=== PATIENT | female | born 1940 | race Caucasian/White ===

== ENCOUNTER 2018-08-03 20:25 | Observation (INO) | payer BC, OTHER ==
[2018-08-03 21:05] LABS: Absolute Lymphocytes (CBC) 1.6 K/uL (0.7-4.9); Absolute Monocytes 0.8 K/uL (0.1-1.3); Absolute Neutrophil 3.3 K/uL (1.8-8.0); Basophils % 0.8 % (0-1.3); Eosinophils % 3.5 % (0-4.4); Hematocrit 45.6 % (36.0-45.0); Lymphocytes % 26.6 % (15.3-44.8); MPV 9.8 fL (7.6-11.3); Monocytes % 13.7 % (3.3-12.3); RBC Red Blood Cell Count 4.51 M/uL (3.86-4.86)
--- NOTE | 2018-08-03 21:15 | RAD REPORT ---
EXAM DESCRIPTION: CT - Ct Stroke Brain Wo Cont - 08/03/2018 9:05 pm CLINICAL HISTORY: Aphasia COMPARISON: None. TECHNIQUE: Computed axial tomography of the head was obtained. IV contrast was not requested. All CT scans are performed using dose optimization technique as appropriate and may include automated exposure control or mA/KV adjustment according to patient size. FINDINGS: An intracranial bleed is not seen . The ventricles are normal in caliber. No extra-axial fluid collection is noted. 7 millimeter structure abuts the anterior right falx which is equivocal for a meningioma. There is no surrounding edema Fluid within the sinuses/ mastoids is not seen. IMPRESSION: No acute intracranial abnormality is seen. If patient's symptoms persist MRI of the bra in would be recommended. Alisia from the emergency room notified 9:05 p.m. August 03, 2018
[2018-08-03 21:16] LABS: Protime INR 1.02
[2018-08-03 21:30] LABS: BUN Blood Urea Nitrogen 12 mg/dL (7-18); Bicarbonate 28 mmol/L (21-32); Glucose Level 113 mg/dL (74-106); Potassium 3.6 mmol/L (3.5-5.1); Sodium Level 137 mmol/L (136-145); Troponin (Emerg Dept Use Only) < 0.02 ng/mL (0.0-0.045)
[2018-08-03 21:33] LABS: Magnesium 1.2 mg/dL (1.8-2.4)
[2018-08-03] MEDS ORDERED: MAGNESIUM SULFATE 1 gm IVPB 1 GM/100 ML BAG IV ONE (21:50)
--- NOTE | 2018-08-03 22:38 | EDPHYS ---
Physician Documentation [facility] Name: Johana Riley Age: 78 yrs Sex: Female : 1940 Arrival Date: 08/03/2018 Time: 20:29 Bed 24 Private MD: ED Physician Chadwick Lutz HPI: 08/03 21:41 This 78 yrs old Female presents to ER via Ambulatory with complaints of S/S rn of Possible Stroke. 21:41 The patient's problem is reported as dysphasia. Onset: The symptoms/episode rn began/occurred this morning. Duration: The episode is continuous. The symptoms are alleviated by nothing. The symptoms are aggravated by nothing. Severity of symptoms: At their worst the symptoms were mild in the emergency department the symptoms are unchanged. The patient has not experienced similar symptoms in the past. Patient reports last known normal last night at midnight, woke up with trouble speaking, constant throughout the day, no other focal neurological complaint, no head trauma. No chest pain/sob. states still sounds different. . Historical: - Allergies: 20:48 No Known Allergies; la1 - Home Meds: 20:48 Lisinopril Oral [Active]; Atenolol Oral [Active]; la1 - PMHx: 20:48 Hypertension; GERD; la1 - Immunization history:: Adult Immunizations up to date. - Social history:: Smoking status: Patient/guardian denies using tobacco. - Ebola Screening: : No symptoms or risks identified at this time. - Family history:: not pertinent. - Hospitalizations: : No recent hospitalization is reported. ROS: 21:41 Constitutional: Negative for fever, chills, and weight loss, Eyes: Negative for injury, rn pain, redness, and discharge, Neck: Negative for injury, pain, and swelling, Cardiovascular: Negative for chest pain, palpitations, and edema, Respiratory: Negative for shortness of breath, cough, wheezing, and pleuritic chest pain, Abdomen/GI: Negative for abdominal pain, nausea, vomiting, diarrhea, and constipation, MS/Extremity: Negative for injury and deformity, Skin: Negative for injury, rash, and discoloration, Neuro: Negative for headache, weakness, numbness, tingling, and seizure. Exam: 21:41 Radiologist reports: no acute findings rn 21:41 Constitutional: This is a well developed, well nourished patient who is awake, alert, and in no acute distress. Head/Face: Normocephalic, atraumatic. Eyes: Pupils equal round and reactive to light, extra-ocular motions intact. Lids and lashes normal. Conjunctiva and sclera are non-icteric and not injected. Cornea within normal limits. Periorbital areas with no swelling, redness, or edema. ENT: Nares patent. No nasal discharge, no septal abnormalities noted. Oropharynx with no redness, swelling, or masses, exudates, or evidence of obstruction, uvula midline. Mucous membranes moist. Cardiovascular: Regular rate and rhythm. No pulse deficits. Respiratory: Lungs have equal breath sounds bilaterally, clear to auscultation and percussion. No increased work of breathing, no retractions or nasal flaring. Abdomen/GI: Soft, non-tender MS/ Extremity: Pulses equal, no cyanosis. Neurovascular intact. Full, normal range of motion. Equal circumference. Neuro: Awake and alert, GCS 15, oriented to person, place, time, and situation. Cranial nerves II-XII grossly intact. Motor strength 5/5 in all extremities. Sensory grossly intact. Cerebellar exam normal. Normal gait. Vital Signs: 20:47 BP 182 / 84; Pulse 76; Resp 16; Temp 98.2; Pulse Ox 98% on R/A; Weight 62.6 kg; Height la1 5 ft. 3 in. (160.02 cm); 21:37 BP 155 / 66; Pulse 70; Resp 18; Pulse Ox 98% on R/A; la1 08/04 00:05 BP 148 / 73; Pulse 71; Resp 18; Pulse Ox 98% on R/A; la1 08/03 20:47 Body Mass Index 24.45 (62.60 kg, 160.02 cm) la1 NIH Stroke Scale Scores: 08/03 20:55 NIHSS Score: 1 la1 MDM: 20:30 Patient medically screened. rn 20:41 ED course: Last known normal midnight last night, noticed symptoms upon waking up today rn at 0700, persistent symptoms. NIH 1. No TPA indicated as outside of window.. 22:34 Differential diagnosis: CVA, metabolic disorder. Data reviewed: vital signs, nurses rn notes, lab test result(s), EKG, radiologic studies, CT scan, and as a result, I will admit patient. Counseling: I had a detailed discussion with the patient and/or guardian regarding: the historical points, exam findings, and any diagnostic results supporting the discharge/admit diagnosis, lab results, radiology results, the need for further work-up and treatment in the hospital. Admission orders: after a detailed discussion of the patient's condition and case, the admit orders are written by me. ED course: Admitted to Dr. Bar for stroke w/u, neg CT head, magnesium replaced.. 08/03 20:41 Order name: Magnesium rn 08/03 20:41 Order name: Troponin (emerg Dept Use Only); Complete Time: 22: 08/03 20:41 Order name: Basic Metabolic Panel; Complete Time: : 08/03 20:41 Order name: CBC with Diff; Complete Time: : 08/03 20:41 Order name: Protime (+inr); Complete Time: 22: 08/03 20:41 Order name: Ptt, Activated; Complete Time: : 08/03 20:41 Order name: CT Stroke Brain w/o Contrast; Complete Time: 22: 08/03 20:41 Order name: Stroke CXR 1 View 08/03 20:41 Order name: EKG; Complete Time: 20:42 08/03 20:42 Order name: Magnesium; Complete Time: 22: [facility] 08/03 20:50 Order name: Glucose, Ancillary Testing; Complete Time: 22: [facility] 08/03 20:41 Order name: Accucheck; Complete Time: 20:08/03 20:41 Order name: Cardiac monitoring; Complete Time: 20:08/03 20:41 Order name: EKG - Nurse/Tech; Complete Time: 20:08/03 20:41 Order name: IV Saline Lock; Complete Time: 20:08/03 20:41 Order name: Labs collected and sent; Complete Time: 20:08/03 20:41 Order name: NPO; Complete Time: :08/03 20:41 Order name: O2 Per Protocol; Complete Time: 20:08/03 20:41 Order name: O2 Sat Monitoring; Complete Time: :08/03 20:41 Order name: Stroke Swallow Screen; Complete Time: 20:56 rn Administered Medications: 21:41 Drug: Magnesium Sulfate 1 grams Route: IVPB; Infused Over: 1 hrs; Site: right la1 antecubital; 22:50 Follow up: IV Status: Completed infusion la1 23:15 Drug: Aspirin Chewable Tablet 324 mg Route: PO; la1 08/04 00:06 Follow up: Response: No adverse reaction la1 08/03 23:15 Drug: PlaVIX 75 mg Route: PO; la1 08/04 00:06 Follow up: Response: No adverse reaction la1 Point of Care Testing: Blood Glucose: 08/03 20:47 Blood Glucose: 108 mg/dL; la1 Ranges: Critical Glucose Levels:Adult <50 mg/dl or >400 mg/dl <40 mg/dl or >180 mg/dl Disposition: 08/03/18 22:37 Hospitalization ordered by Shanon Smith for Inpatient Admission. Preliminary diagnosis is Dysphasia. - Bed requested for Telemetry/MedSurg (Inpatient). - Status is Inpatient Admission. la1 - Condition is Stable. - Problem is new. - Symptoms are unchanged. UTI on Admission? No NIH Stroke Scale - NIH Stroke Score Date: 08/03/2018 Time: 20:55 Total Score = 1 1a. Level of Consciousness (LOC) - 0(Alert) 1b. Level of Consciousness (LOC) (Year \T\ Age) - 0(Both) 1c. LOC Commands (Open \T\ Closes Eyes/Partner) - 0(Both) 2. Best Gaze (Lateral Gaze Paresis) - 0(Normal) 3. Visual Field Loss - 0(No visual loss) 4. Facial Palsy - 0(Normal) 5a. Left Arm: Motor (10-second hold) - 0(No drift) 5b. Right Arm: Motor (10-second hold) - 0(No drift) 6a. Left Leg: Motor (5-second hold - always test supine) - 0(No drift) 6b. Right Leg: Motor (5-second hold - always test supine) - 0(No drift) 7. Limb Ataxia (finger/nose \T\ heel/capps - test with eyes open) - 0(Absent) 8. Sensory Loss (pinprick arms/legs/face) - 0(Normal) 9. Best Language: Aphasia (description/naming/reading) - 1(Mild to moderate aphasia) 10. Dysarthria (speech clarity - read or repeat words) - 0(Normal) 11. Extinction and Inattention (visual/tactile/auditory/spatial/personal) - 0(No abnormality) Initials: laSyd Signatures: Dispatcher [employer] Stephanie Maza, Naren Andres RN, PA PA jmm Nieto, Roman, MD MD rn Attema, Lee, RN RN la1 Corrections: (The following items were deleted from the chart) 08/04 00:07 08/03 22:37 Hospitalization Ordered by Shanon Smith MD for Inpatient kl Admission. Preliminary diagnosis is Dysphasia. Bed requested for Telemetry/MedSurg (Inpatient). Status is Inpatient Admission. Condition is Stable. Problem is new. Symptoms are unchanged. UTI on Admission? No. rn 08/04 00:30 00:07 08/03/2018 22:37 Hospitalization Ordered by Shanon Smith MD for la1 Inpatient Admission. Preliminary diagnosis is Dysphasia. Bed requested for Telemetry/MedSurg (Inpatient). Status is Inpatient Admission. Condition is Stable. Problem is new. Symptoms are unchanged. UTI on Admission? No. kl
--- NOTE | 2018-08-03 22:38 | ER ---
Nurse's Notes [facility] Name: Johana Riley Age: 78 yrs Sex: Female : 1940 Arrival Date: 08/03/2018 Time: 20:29 Bed 24 Private MD: Diagnosis: Dysphasia Presentation: 08/03 20:34 Presenting complaint: Patient states: I went to sleep last night around midnight and la1 woke up at 0700 and realized I was having trouble with my speech, states that she was having trouble thinking of words and slow to respond to questions. Transition of care: patient was not received from another setting of care. No acute neurological deficit is noted. Pre-hospital glucose is not applicable to this patient. Onset of symptoms was August 03, 2018 at 00:00. Risk Assessment: Do you want to hurt yourself or someone else? Patient reports no desire to harm self or others. Initial Sepsis Screen: Does the patient meet any 2 criteria? No. Patient's initial sepsis screen is negative. Does the patient have a suspected source of infection? No. Patient's initial sepsis screen is negative. Care prior to arrival: None. 20:34 Method Of Arrival: Ambulatory la1 20:34 Acuity: CHAITANYA 2 la1 Triage Assessment: 20:56 The onset of the patients symptoms was August 03, 2018 at 00:00. la1 Stroke Activation: Symptom onset > 6 hours Physician: Stroke Attending; Name: ; Notified At: ; Arrived At: Physician: Chief Stroke Resident; Name: ; Notified At: ; Arrived At: Physician: Stroke Resident; Name: ; Notified At: ; Arrived At: Physician: ED Attending; Name: ; Notified At: ; Arrived At: Physician: ED Resident; Name: ; Notified At: ; Arrived At: Historical: - Allergies: 20:48 No Known Allergies; la1 - Home Meds: 20:48 Lisinopril Oral [Active]; Atenolol Oral [Active]; la1 - PMHx: 20:48 Hypertension; GERD; la1 - Immunization history:: Adult Immunizations up to date. - Social history:: Smoking status: Patient/guardian denies using tobacco. - Ebola Screening: : No symptoms or risks identified at this time. - Family history:: not pertinent. - Hospitalizations: : No recent hospitalization is reported. Screenin:48 Abuse screen: Denies threats or abuse. Nutritional screening: No deficits noted. la1 Tuberculosis screening: No symptoms or risk factors identified. The patient has not been NPO before screening. The patient is alert, able to follow commands. The patient does not exhibit slurred or garbled speech The patient is not exhibiting difficulty speaking. The patient is exhibiting difficulty understanding words. The patient is able to swallow own secretions with no drooling or need for suction. Patient tolerated one teaspoon of water. No drooling, immediate coughing, gurgling, or clearing of the throat was noted. The patient tolerated 90mL of water. No drooling, immediate coughing, gurgling, or clearing of the throat was noted. The patient passed the bedside swallow screening. Oral medications may be given as ordered. Contact Physician for further diet orders. Provider notified of bedside swallow screening results: Chadwick Lutz MD. Fall Risk No fall in past 12 months (0 pts). No secondary diagnosis (0 pts). IV access (20 points). Ambulatory Aid- None/Bed Rest/Nurse Assist (0 pts). Gait- Weak (10 pts.). Mental Status- Oriented to own ability (0 pts). Total Marcus Fall Scale indicates Low Risk Score (25-44 pts). Family Present and informed to notify staff if they need to leave bedside. Assessment: 20:49 The patient has not been NPO before screening. The patient is alert, and able to follow la1 commands. The patient does not exhibit slurred or garbled speech. The patient is not exhibiting difficulty speaking. The patient is exhibiting difficulty understanding words. The patient is able to swallow own secretions with no drooling or need for suction. Patient tolerated one teaspoon of water. No drooling, immediate coughing, gurgling, or clearing of the throat was noted. The patient tolerated 90mL of water. No drooling, immediate coughing, gurgling, or clearing of the throat was noted. The patient passed the bedside swallow screening. Oral medications may be given as ordered. Contact Physician for further diet orders. Provider notified of bedside swallow screening results: Chadwick Lutz MD. T-PA (Activase) Screening: Contraindications: Patient reports onset of signs and symptoms of stroke greater than 6 hours ago: Yes. General: Appears in no apparent distress. Behavior is calm, cooperative. Pain: Denies pain. Neuro: Level of Consciousness is awake, alert, obeys commands, Oriented to person, place, time, situation, Pharmacy Graduate Intern are equal bilaterally Moves all extremities. Full function Gait is steady, Speech reports pt has had difficulty thinking of appropriate responses, pt able to answer questions appropriately in triage. Facial symmetry appears normal, Pupils are PERRLA, Intact. Cardiovascular: Capillary refill < 3 seconds Patient's skin is warm and dry. Respiratory: Airway is patent Respiratory effort is even, unlabored, Respiratory pattern is regular, symmetrical. GI: No signs and/or symptoms were reported involving the gastrointestinal system. : No signs and/or symptoms were reported regarding the genitourinary system. 21:37 Reassessment: Patient appears in no apparent distress at this time. No changes from la1 previously documented assessment. Patient and/or family updated on plan of care and expected duration. Pain level reassessed. Patient is alert, oriented x 3, equal unlabored respirations, skin warm/dry/pink. 22:16 Reassessment: Patient appears in no apparent distress at this time. No changes from la1 previously documented assessment. Patient and/or family updated on plan of care and expected duration. Pain level reassessed. Patient is alert, oriented x 3, equal unlabored respirations, skin warm/dry/pink. 08/04 00:05 Reassessment: Patient appears in no apparent distress at this time. No changes from la1 previously documented assessment. Patient and/or family updated on plan of care and expected duration. Pain level reassessed. Patient is alert, oriented x 3, equal unlabored respirations, skin warm/dry/pink. Vital Signs: 08/03 20:47 BP 182 / 84; Pulse 76; Resp 16; Temp 98.2; Pulse Ox 98% on R/A; Weight 62.6 kg; Height la1 5 ft. 3 in. (160.02 cm); 21:37 BP 155 / 66; Pulse 70; Resp 18; Pulse Ox 98% on R/A; la1 08/04 00:05 BP 148 / 73; Pulse 71; Resp 18; Pulse Ox 98% on R/A; la1 08/03 20:47 Body Mass Index 24.45 (62.60 kg, 160.02 cm) ak1 NIH Stroke Scale Scores: 08/03 20:55 NIHSS Score: 1 la1 ED Course: 20:29 Patient arrived in ED. ds1 20:30 Chadwick Lutz MD is Attending Physician. rn 20:34 Candelario Hester RN is Primary Nurse. la1 20:36 Triage completed. la1 20:36 Arm band placed on left wrist. la1 20:49 Bed in low position. Call light in reach. Side rails up X 1. thermal cutting machine operator on. Pulse la1 ox on. NIBP on. 20:49 Inserted saline lock: 20 gauge in right antecubital area, using aseptic technique. la1 ,using aseptic technique. by Jeremy IBARRA. 21:05 Stroke CXR 1 View In Process Unspecified. EDMS 21:05 CT Stroke Brain w/o Contrast In Process Unspecified. EDMS 22:37 Shanon Smith MD is Hospitalizing Provider. rn 08/04 00:29 No provider procedures requiring assistance completed. Patient admitted, IV remains in la1 place. Administered Medications: 08/03 21:41 Drug: Magnesium Sulfate 1 grams Route: IVPB; Infused Over: 1 hrs; Site: right la1 antecubital; 22:50 Follow up: IV Status: Completed infusion la1 23:15 Drug: Aspirin Chewable Tablet 324 mg Route: PO; la1 08/04 00:06 Follow up: Response: No adverse reaction la1 08/03 23:15 Drug: PlaVIX 75 mg Route: PO; la1 08/04 00:06 Follow up: Response: No adverse reaction la1 Point of Care Testing: Blood Glucose: 08/03 20:47 Blood Glucose: 108 mg/dL; la1 Ranges: Outcome: 22:37 Decision to Hospitalize by Provider. rn 08/04 00:29 Admitted to Med/surg accompanied by tech, via wheelchair, room 202, with chart. la1 Condition: stable Instructed on the need for admit. 00:30 Patient left the ED. la1 NIH Stroke Scale - NIH Stroke Score Date: 08/03/2018 Time: 20:55 Total Score = 1 1a. Level of Consciousness (LOC) - 0(Alert) 1b. Level of Consciousness (LOC) (Year \T\ Age) - 0(Both) 1c. LOC Commands (Open \T\ Closes Eyes/Hypercil Core Transformer Assembler) - 0(Both) 2. Best Gaze (Lateral Gaze Paresis) - 0(Normal) 3. Visual Field Loss - 0(No visual loss) 4. Facial Palsy - 0(Normal) 5a. Left Arm: Motor (10-second hold) - 0(No drift) 5b. Right Arm: Motor (10-second hold) - 0(No drift) 6a. Left Leg: Motor (5-second hold - always test supine) - 0(No drift) 6b. Right Leg: Motor (5-second hold - always test supine) - 0(No drift) 7. Limb Ataxia (finger/nose \T\ heel/capps - test with eyes open) - 0(Absent) 8. Sensory Loss (pinprick arms/legs/face) - 0(Normal) 9. Best Language: Aphasia (description/naming/reading) - 1(Mild to moderate aphasia) 10. Dysarthria (speech clarity - read or repeat words) - 0(Normal) 11. Extinction and Inattention (visual/tactile/auditory/spatial/personal) - 0(No abnormality) Initials: dae Signatures: Dispatcher [employer] [facility] Aceves Monalisa 1 Chadwick Lutz MD MD rn Attema, Lee, RN RN la1 Corrections: (The following items were deleted from the chart) 08/03 20:41 20:34 Presenting complaint: Patient states: I went to sleep last night around la1 10 and woke up at 0700 and realized I was having trouble with my speech, states that she was having trouble thinking of words and slow to respond to questions. la1 20:41 20:34 Onset of symptoms was August 02, 2018 at 22:00 la1 la1
[2018-08-03] MEDS ORDERED: ASPIRIN 81 MG CHEWABLE TABLET ONE (23:16)
[2018-08-03] MEDS ORDERED: CLOPIDOGREL 75 MG TABLET ONE (23:17)
--- NOTE | 2018-08-03 23:44 | P.HP ---
Certification for Inpatient Patient admitted to: Inpatient With expected LOS: >2 Midnights Practitioner: I am a practitioner with admitting privileges, knowledge of patient current condition, hospital course, and medical plan of care. Services: Services provided to patient in accordance with Admission requirements found in Title 42 Section 412.3 of the Code of Federal Regulations Patient History Date of Service: 08/03/18 Reason for admission: CVA vs TIA History of Present Illness: Ms Riley is an 78 years old woman with history of HTN, who this morning started with slurred speech. His noticed that she was not talking like use to over the phone. The patient was alert and oriented al the time, but she was having problems to find the right word as well. She denied any tingling, numbness or weakness associated with. According to his the deficit has been improving along the day. The patient arrived to ED outside the therapeutic window for thrombolytics. CT head shows no acute abnormalities. Lab work remarkable for hypomagnesemia, BP at arrival elevated 182/84. Home medications list reviewed: Yes - Past Medical/Surgical History -: HTN Past Surgical History: Reviewed- Non-Contributory - Family History Family History: Reviewed- Non-Contributory - Social History Smoking Status: Current every day smoker Counseled patient to stop smoking for: less than 10 minutes Alcohol use: Yes CD- Drugs: No Caffeine use: Yes Place of Residence: Home Review of Systems 10-point ROS is otherwise unremarkable Physical Examination - Physical Exam General: Alert, In no apparent distress HEENT: Atraumatic, PERRLA, Mucous membr. moist/pink, EOMI, Sclerae nonicteric Neck: Supple, 2+ carotid pulse no bruit, No LAD, Without JVD or thyroid abnormality Respiratory: Clear to auscultation bilaterally, Normal air movement Cardiovascular: Regular rate/rhythm, Normal S1 S2 Gastrointestinal: Normal bowel sounds, No tenderness Musculoskeletal: No tenderness Integumentary: No rashes Neurological: Normal strength at 5/5 x4 extr, Normal tone, Normal affect, Abnormal speech (mild slurred speech) Lymphatics: No axilla or inguinal lymphadenopathy - Studies Laboratory Data (last 24 hrs) 08/03/18 20:45: PT 12.0, INR 1.02, APTT 32.0 08/03/18 20:45: WBC 6.0, Hgb 15.3 H, Hct 45.6 H, Plt Count 133 L 02/24/19 20:45: Sodium 137, Potassium 3.6, BUN 12, Creatinine 0.91, Glucose 113 H, Magnesium 1.2 L* Assessment and Plan - Problems (Diagnosis) (1) CVA (cerebral vascular accident) Current Visit: Yes Status: Acute Qualifiers: CVA mechanism: unspecified Qualified Code(s): I63.9 - Cerebral infarction, unspecified (2) HTN (hypertension) Current Visit: Yes Status: Acute Qualifiers: Hypertension type: essential hypertension Qualified Code(s): I10 - Essential (primary) hypertension (3) Hypomagnesemia Current Visit: Yes Status: Acute - Plan The patient will be admitted to the hospital due to acute CVA vs TIA. Thrombolitics therapy was not recommended since the patient arrived outside the therapeutic window. Will order brain MRI, carotid doppler, and ECHO, also speech and physical therapy evaluation. Will start Plavix since she is taking aspirin laready, also statins. Will continue with permisive hypertension. - Advance Directives Does patient have a Living Will: No Does patient have a Durable POA for Healthcare: No - Code Status/Comfort Care Code Status Assessed: Yes Code Status: Full Code
[2018-08-04] MEDS ORDERED: ONDANSETRON 4 MG/2 ML VIAL IV PRN (00:40)
[2018-08-04 04:40] LABS: Urine Appearance CLEAR; Urine Bilirubin NEGATIVE (NEG); Urine Blood NEGATIVE (NEG); Urine Color YELLOW; Urine Glucose NEGATIVE (NEG); Urine Protein NEGATIVE (NEG)
[2018-08-04 04:53] LABS: Urine Microscopic Reflex ORDER UMIC
[2018-08-04 05:23] LABS: Urine Bacteria <20 /HPF (<20); Urine Culture Reflex Order REFLEXED; Urine RBC NONE SEEN /HPF (NONE SEEN)
[2018-08-04 06:03] LABS: Absolute Lymphocytes (CBC) 1.3 K/uL (0.7-4.9); Absolute Monocytes 0.8 K/uL (0.1-1.3); Absolute Neutrophil 2.4 K/uL (1.8-8.0); Basophils % 0.8 % (0-1.3); Hematocrit 41.8 % (36.0-45.0); MPV 9.8 fL (7.6-11.3); Monocytes % 16.4 % (3.3-12.3); RBC Red Blood Cell Count 4.14 M/uL (3.86-4.86)
[2018-08-04 06:24] LABS: Potassium 3.4 mmol/L (3.5-5.1)
[2018-08-04 06:52] LABS: Blood Morphology Comment NOT SEEN (NOT SEEN); Platelet Estimate DECR; Urine White Blood Cell Casts OK
[2018-08-04] MEDS ORDERED: Magnesium Sulfate 2gm IVPB 2 G/50 ML BAG IV ONE (07:00)
[2018-08-04] MEDS ORDERED: POTASSIUM CL SA 10 MEQ TAB PO ONE (07:00)
--- NOTE | 2018-08-04 08:09 | RAD REPORT ---
EXAM DESCRIPTION: RAD - Chest Single View - 08/03/2018 9:07 pm CLINICAL HISTORY: aphasia Chest pain. COMPARISON: No comparisons FINDINGS: Portable technique limits examination quality. The lungs are emphysematous but grossly clear. The heart is normal in size. No displaced fractures. IMPRESSION: No acute intrathoracic process suspected. Mild COPD.
--- NOTE | 2018-08-04 08:40 | RAD REPORT ---
EXAM DESCRIPTION: US - CP - 08/04/2018 8:16 am CLINICAL HISTORY: CVA COMPARISON: No comparisons TECHNIQUE: Real-time sonographic evaluation of both carotid systems was performed. Doppler interroga tion was performed with waveform tracing bilaterally. FINDINGS: Normal high resistance waveforms are noted in both external carotid arteries. The common c arotid arteries and internal carotid arteries show normal low resistance waveforms. Mild soft plaque is present proximal right internal carotid artery. Mild hard plaque is present proxi mal left internal carotid artery. Peak systolic and end diastolic velocity values and the ICA/CCA rat ios are in the non-hemodynamically significant range. Antegrade flow seen in both vertebral arteries. IMPRESSION: Mild plaquing is seen in both proximal internal carotid arteries as detailed. No evidence of a hemodynamically significant stenosis.
--- NOTE | 2018-08-04 08:49 | EKG ---
Test Date: 2018-08-03 Test Time: 20:49:15 Sales Account Coordinator: JUANT MEASUREMENT RESULTS: Intervals: Rate: 70 IL: 172 QRSD: 74 QT: 410 QTc: 442 [place]: P: 68 IL: 172 QRS: 55 T: 51 INTERPRETIVE STATEMENTS: Normal sinus rhythm Normal ECG Compared to ECG 02/22/2009 09:16:28 ST (T wave) deviation no longer present Electronically Signed On 08-04-18 08:48:28 SALES MERCH[employer]ISE ASSOCIATE by Parth Hoang
[2018-08-04] MEDS ORDERED: ASPIRIN EC 81 MG TAB PO SCH (09:00)
[2018-08-04] MEDS ORDERED: ENOXAPARIN 40 MG/0.4 ML SQ SCH (09:00)
[2018-08-04] MEDS ORDERED: CLOPIDOGREL 75 MG TABLET PO SCH (09:00)
--- NOTE | 2018-08-04 09:33 | RAD REPORT ---
EXAM DESCRIPTION: MRI - MRA Head Wo Cont - 08/04/2018 8:36 am CLINICAL HISTORY: R/O acute CVA CVA symptomology, headache COMPARISON: Ct Stroke Brain Wo Cont dated 08/03/2018 FINDINGS: 3D noncontrast [id number] MR angiography of the [place] was performed. No aneurysm, flow-limiting stenosis or vascular malformation is seen. origin of both posterior communicating artery is noted, normal variant. Forward flow seen in codominant vertebral arteries. The visualized dural venous sinuses appear patent. IMPRESSION: No significant flow abnormality of the [place] is identified.
--- NOTE | 2018-08-04 11:03 | ECHO ---
HEIGHT: 5 ft 3 in WEIGHT: 144 lb 1.6 oz DATE OF STUDY: 08/04/[address]: Shanon Bar MD 2-DIMENSIONAL: YES M.MODE: YES DOPPLER: YES COLOR FLOW: YES TDS: NO PORTABLE: NO DEFINITY: NO BUBBLE STUDY: NO DIAGNOSIS: STROKE CARDIAC HISTORY: CATHERIZATION: SURGERY: PROSTHETIC VALVE: PACEMAKER: MEASUREMENTS (cm) DIASTOLIC (NORMALS) SYSTOLIC (NORMALS) IVSd 0.8 (0.6-1.2) LA Diam 3.6 (1.9-4.0) LVEF 61% LVIDd 4.5 (3.5-5.7) LVIDs 3.0 (2.0-3.5) %FS 32% LVPWd 0.9 (0.6-1.2) Ao Diam 2.5 (2.0-3.7) 2 DIMENSIONAL ASSESSMENT: RIGHT ATRIUM: NORMAL LEFT ATRIUM: NORMAL RIGHT VENTRICLE: NORMAL LEFT VENTRICLE: NORMAL TRICUSPID VALVE: NORMAL MITRAL VALVE: NORMAL PULMONIC VALVE: NORMAL AORTIC VALVE: NORMAL PERICARDIAL EFFUSION: NONE AORTIC ROOT: NORMAL LEFT VENTRICULAR WALL MOTION: NORMAL. DOPPLER/COLOR FLOW: MILD MITRAL REGURGITATION AND TRICUSPID REGURGITATION. NORMAL RIGHT VENTRICULAR SYSTOLIC PRESSURE. COMMENTS: NORMAL 2D ECHOCARDIOGRAM WITH DOPPLER. MILD MITRAL REGURGITATION AND TRICUSPID REGURGITATION. TECHNOLOGIST: DAVID DRIVER
--- NOTE | 2018-08-04 17:38 | P.SSS ---
Patient History Date of Service: 08/04/18 Reason for admission: CVA vs TIA History of Present Illness: Ms Riley is an 78 years old woman with history of HTN, who this morning started with slurred speech. His noticed that she was not talking like use to over the phone. The patient was alert and oriented al the time, but she was having problems to find the right word as well. She denied any tingling, numbness or weakness associated with. According to his the deficit has been improving along the day. The patient arrived to ED outside the therapeutic window for thrombolytics. CT head shows no acute abnormalities. Lab work remarkable for hypomagnesemia, BP at arrival elevated 182/84. Allergies No Known Allergies Allergy (Verified 08/04/18 00:40) Home Medications: Aspirin Chewable [Aspirin Chewable*] 81 mg PO DAILY 08/04/18 Atenolol [Tenormin*] 50 mg PO BID 08/04/18 Gabapentin 300 mg PO BEDTIME 08/04/18 Lisinopril/Hydrochlorothiazide [Lisinopril-Hctz 20-12.5 mg Tab] 1 tab PO BID Pantoprazole [Protonix Tab*] 40 mg PO DAILY 08/04/18 - Past Medical/Surgical History Has patient received pneumonia vaccine in the past: Yes Diabetic: No -: HTN -: Gerd -: R ear surgery - Family History Family History: Reviewed- Non-Contributory - Social History Smoking Status: Current every day smoker Alcohol use: Yes CD- Drugs: No Caffeine use: Yes Place of Residence: Home Review of Systems 10-point ROS is otherwise unremarkable Physical Examination - Vital Signs Temperature: 97.2 F Blood Pressure: 165/66 Pulse: 63 Respirations: 18 Pulse Ox (%): 93 - Physical Exam General: Alert, In no apparent distress HEENT: Atraumatic, PERRLA, Mucous membr. moist/pink, EOMI, Sclerae nonicteric Neck: Supple, 2+ carotid pulse no bruit, No LAD, Without JVD or thyroid abnormality Respiratory: Clear to auscultation bilaterally, Normal air movement Cardiovascular: Regular rate/rhythm, Normal S1 S2 Gastrointestinal: Normal bowel sounds, No tenderness Musculoskeletal: No tenderness Integumentary: No rashes Neurological: Normal gait, Normal speech, Normal strength at 5/5 x4 extr, Normal tone, Normal affect Lymphatics: No axilla or inguinal lymphadenopathy - Studies Laboratory Data (last 24 hrs) 08/03/18 20:45: PT 12.0, INR 1.02, APTT 32.0 08/03/18 20:45: WBC 6.0, Hgb 15.3 H, Hct 45.6 H, Plt Count 133 L 08/03/18 20:45: Sodium 137, Potassium 3.6, BUN 12, Creatinine 0.91, Glucose 113 H, Magnesium 1.2 L* - Diagnosis (Problem(s)) (1) Slurred speech Status: Resolved (2) Hypomagnesemia Status: Resolved (3) HTN (hypertension) Status: Chronic Qualifiers: Hypertension type: essential hypertension Qualified Code(s): I10 - Essential (primary) hypertension Treatment Summary: Overall during the hospital stay patient remained stable Patient was initially admitted to the hospital for slurred speech to rule out CVA. Patient has had CT done here in the hospital which was negative for any acute abnormality. MRI MRA and carotid Doppler were done which were all within normal limits. Patient also had an echocardiogram done which was also within normal limits. Patient had therapy consulted here in the hospital and did well overall. Patient slur speech did resolve in the hospital. Patient slur speech was most likely secondary to her gabapentin use versus hypomagnesemia. Patient was educated extensively on healthy diet and judicial use of gabapentin. Patient did well overall and thus was discharged home under stable condition. - Disposition Disposition: ROUTINE DISCHARGE Condition: GOOD Patient Discharge Instructions: Please f.u with PCP and Dr Simental in 1 to 2 weeks post discharge. No new medication Diet: Regular Activity: Ad fabrizio
[2018-08-04] MEDS ORDERED: ATORVASTATIN 20 MG TAB PO SCH (21:00)
== END 2018-08-04 12:40 | disposition home or self-care (01) ==
LOC: ER 20:25 → ERHOLD 23:46 → 2ND 08-04 00:25
PROVIDERS: ADMIT Internal Medicine; ATTEND Internal Medicine
DX: R47.81 Slurred speech (principal); E83.42 Hypomagnesemia; I10 Essential (primary) hypertension; K21.9 Gastro-esophageal reflux disease without esophagitis; F17.210 Nicotine dependence, cigarettes, uncomplicated; Z79.82 Long term (current) use of aspirin
CPT/HCPCS: 36415; 70450; 70544; 71045; 80048; 80061; 81003; 81015; 82962; 83735; 84484; 85025; 85610; 85730; 87086; 87088; 92610; 93005; 93306; 93880; 96365; 97162; 99285; G0378; J1650; J3475

== ENCOUNTER 2018-09-30 18:49 | Emergency (ER) | payer BC, OTHER ==
--- NOTE | 2018-09-30 19:48 | RAD REPORT ---
EXAM DESCRIPTION: CT - Head Brain Wo Cont - 09/30/2018 7:20 pm CLINICAL HISTORY: Trip and fall, head and face injury COMPARISON: CT head July 2018 TECHNIQUE: Axial 5 mm thick images of the head were obtained without IV contrast. All CT scans are performed using dose optimization technique as appropriate and may include automated exposure control or mA/KV adjustment according to patient size. FINDINGS: No intracranial hemorrhage, mass, edema or shift of mid-line structures. No acute infarcti on changes seen. No abnormal extra-axial fluid collections. Atrophy and chronic ischemic changes matc h the prior study. Ventricles are in proportion to volume loss. Arterial and physiologic calcificatio ns are present. No acute mastoid air cell finding. No skull fracture. Facial bones, orbits and sinuses are separately detailed. IMPRESSION: Atrophy and chronic ischemic change with no acute intracranial finding. Intracranial fin dings are similar to July study. Facial bones, orbits and sinuses are separately detailed.
--- NOTE | 2018-09-30 19:53 | RAD REPORT ---
EXAM DESCRIPTION: CT - Facial Bones W/ Mpr - 09/30/2018 7:20 pm CLINICAL HISTORY: Trip and fall, facial trauma COMPARISON: None. TECHNIQUE: Axial 2 millimeter thick images of the facial bones were obtained with sagittal and coron al reconstruction imaging. All CT scans are performed using dose optimization technique as appropriate and may include automated exposure control or mA/KV adjustment according to patient size. FINDINGS: Advanced cervical spine degenerative changes are present only partially imaged on this peter dy. No mandible fracture identified. Condyles are normally positioned. Soft tissue injury is seen to the nose without a clearly defined nasal bone fracture. There are sever al punctate hyperdensities in the soft tissues in the midline and right-sided and those that are marly eved to be foreign bodies. Bone fragments are not suspected. Patient has only a very slight right dev iation of the nasal septum. No nasal septum fracture. Zygomatic arches are intact. Air-fluid level is present in the left maxillary sinus. There is an orbital floor fracture on the left no entrapment of the inferior rectus muscle. No globe or orbital content injury. There is some soft tissue contusion or edema around the orbits all preseptal in location. No other acute paranasal sinus finding. There i s a minimal right frontal scalp hematoma. IMPRESSION: Left orbital floor fracture with air-fluid level in the left maxillary sinus. Soft tissue contusion and edema changes around the nasal bone with several small foreign bodies in th e soft tissues. Severe cervical spine degenerative change.
[2018-09-30] MEDS ORDERED: LIDOCAINE 1% MPF 5 ML VIAL ONE (20:26)
--- NOTE | 2018-09-30 20:48 | ER ---
Nurse's Notes [facility] Name: Johana Riley Age: 78 yrs Sex: Female : 1940 Arrival Date: 09/30/2018 Time: 18:51 Bed 27 Private MD: Jacky Vasquez H Diagnosis: Fracture of orbital floor;Laceration with foreign body of nose Presentation: 09/30 18:54 Presenting complaint: Patient states: tripped and fell on steps at home, laceration to sv the nose and hematoma noted to the forehead. Denies LOC. Care prior to arrival: None. 18:54 Acuity: CHAITANYA 3 sv 18:54 Method Of Arrival: Wheelchair sv 18:55 Transition of care: patient was not received from another setting of care. Onset of sv symptoms was September 30, 2018. 19:20 Risk Assessment: Do you want to hurt yourself or someone else? Patient reports no mg2 desire to harm self or others. Initial Sepsis Screen: Does the patient meet any 2 criteria? No. Patient's initial sepsis screen is negative. Does the patient have a suspected source of infection? No. Patient's initial sepsis screen is negative. 19:22 Mechanism of Injury: Fall from standing position. an unknown distance. Trauma event mg2 details: Injury occurred in the [facility], Injury occurred: at home. Injury occurred: September 30, 2018. Trauma Activation: Not Applicable Physician: ED Physician; Name: ; Notified At: ; Arrived At: Physician: General Surgeon; Name: ; Notified At: ; Arrived At: Physician: Radiology; Name: ; Notified At: ; Arrived At: Physician: Respiratory; Name: ; Notified At: ; Arrived At: Physician: Lab; Name: ; Notified At: ; Arrived At: Historical: - Allergies: 18:55 No Known Allergies; sv - Home Meds: 19:21 Atenolol Oral [Active]; lisinopril Oral [Active]; aspirin 81 mg Oral chew 1 tab once mg2 daily [Active]; - PMHx: 18:55 GERD; Hypertension; sv - Immunization history:: Flu vaccine status is unknown. - Social history:: Smoking status: unknown. - Immunization history: Last tetanus immunization: unknown. - Ebola Screening: : No symptoms or risks identified at this time. - Family history:: not pertinent. - Hospitalizations: : No recent hospitalization is reported. Screenin:19 Abuse screen: Denies threats or abuse. Denies injuries from another. Tuberculosis mg2 screening: No symptoms or risk factors identified. 19:21 Nutritional screening: No deficits noted. Fall Risk Fall in past 12 months (25 points). mg2 Primary Survey: 19:17 NO uncontrolled hemorrhage observed. A: The patient is alert. Breathing/Chest: mg2 Respiratory pattern: regular, Respiratory effort: spontaneous, unlabored, Breath sounds: clear, bilaterally. in mediastinum, right upper lobe, left upper lobe, right middle lobe, left lower lobe and right lower lobe Chest inspection: symmetrical rise and fall of the chest. Circulation: Skin color: pink. Disability Alert. Exposure/Environment: All clothing and personal items were removed. Forensic evidence collection is not deemed to be indicated at this time. Items placed in patient belonging bag. There is no evidence of uncontrolled external bleeding. Obvious injury(ies) are noted at this time: nosebridge A warming method has been applied: A warm blanket has been provided to the patient. 20:30 Reassessment Airway Airway Breathing/Chest Respiratory pattern Regular. mg2 Secondary Survey: 19:18 HEENT: Nose: bleeding noted in the nosebridge. Gastrointestinal: No deficits noted. : mg2 No deficits noted. Musculoskeletal: Circulation, motion, and sensation intact. Capillary refill < 3 seconds. Injury Description: Laceration sustained to [facility] is jagged, 0.5 to 2.5 cm long, was sustained less than 30 minutes ago. Assessment: 19:15 General: Appears in no apparent distress. comfortable, Behavior is calm, cooperative. mg2 Pain: Complains of pain in face Pain does not radiate. Pain currently is 4 out of 10 on a pain scale. Quality of pain is described as aching, Pain began suddenly, Is intermittent. Neuro: Level of Consciousness is awake, alert, obeys commands, Oriented to person, place, time, situation. EENT: nasal bridge laceration. Cardiovascular: Capillary refill < 3 seconds Patient's skin is warm and dry. Respiratory: Airway is patent Respiratory effort is even, unlabored, Respiratory pattern is regular, symmetrical. GI: No signs and/or symptoms were reported involving the gastrointestinal system. : No signs and/or symptoms were reported regarding the genitourinary system. Derm: Skin has skin tears on nosebridge Skin is pink, warm \T\ dry. normal. Musculoskeletal: Circulation, motion, and sensation intact. Capillary refill < 3 seconds. Injury Description: Laceration sustained to nosebridge is jagged, 0.5 to 2.5 cm long, mild bleeding noted was sustained less than 30 minutes ago. a small amount of bleeding noted at this time. Vital Signs: 18:55 BP 142 / 79; Pulse 63; Resp 16; Temp 97.6; Pulse Ox 97% ; Weight 63.5 kg; Height 5 ft. sv 2 in. (157.48 cm); Pain 5/10; 20:55 BP 133 / 78; Pulse 70; Resp 18; Pulse Ox 100% on R/A; Pain 0/10; mg2 18:55 Body Mass Index 25.61 (63.50 kg, 157.48 cm) sv Radha Coma Score: 19:20 Eye Response: spontaneous(4). Verbal Response: oriented(5). Motor Response: obeys mg2 commands(6). Total: 15. 20:55 Eye Response: spontaneous(4). Verbal Response: oriented(5). Motor Response: obeys mg2 commands(6). Total: 15. Trauma Score (Adult): 19:20 Eye Response: spontaneous(1); Verbal Response: oriented(1); Motor Response: obeys mg2 commands(2); Systolic BP: > 89 mm Hg(4); Respiratory Rate: 10 to 29 per min(4); Dodge Score: 15; Trauma Score: 12 20:55 Eye Response: spontaneous(1); Verbal Response: oriented(1); Motor Response: obeys mg2 commands(2); Systolic BP: > 89 mm Hg(4); Respiratory Rate: 10 to 29 per min(4); Radha Score: 15; Trauma Score: 12 ED Course: 18:51 Patient arrived in ED. rg4 18:52 Jacky Vasquez DO is Private Physician. rg4 18:55 Triage completed. sv 18:55 Arm band placed on. sv 19:03 Chadwick Lutz MD is Attending Physician. rn 19:[address] sj 19:14 Harvey Yun, RN is Primary Nurse. mg2 19:19 Patient maintains SpO2 saturation greater than 95% on room air. Wound care: to mg2 laceration located on nosebridge was cleaned with Hibiclens, irrigated with normal saline, dressed with band aid, Patient tolerated well. Thermoregulation: warm blanket given to patient. 19:21 CT Head Brain wo Cont In Process Unspecified. EDMS 19:21 CT Facial Bones W/O Con In Process Unspecified. EDMS 19:22 Patient has correct armband on for positive identification. Door closed. Warm blanket mg2 given. 20:47 Andra Pemberton MD is Referral Physician. rn 20:56 Assist provider with laceration repair on nosebridge that was 2.5 cm. or less using mg2 Dermabond. Set up tray. Performed by Chadwick Lutz MD Dressed with steri strips Patient tolerated well. Patient did not have IV access during this emergency room visit. Administered Medications: 20:53 Drug: Lidocaine (1 %) 1 vials Volume: 5 ml; Route: Infiltration; mg2 20:58 Follow up: Response: No adverse reaction mg2 Intake: 19:20 PO: 0ml; Total: 0ml. mg2 Outcome: 20:48 Discharge ordered by MD. rn 20:57 Discharged to home ambulatory, with family. mg2 20:57 Condition: stable 20:57 Discharge instructions given to patient, family, Instructed on discharge instructions, follow up and referral plans. medication usage, Demonstrated understanding of instructions, follow-up care, medications, wound care, Prescriptions given X 1. 20:57 Patient's length of stay was not longer than 2 hours. 20:58 Patient left the ED. mg2 Signatures: Dispatcher [employer] EDMelissa Omalley RN RN sv Jones, Susan sj Nieto, Roman, MD MD rn Garcia, Rubi 4 Harvey Yun RN RN mg2
--- NOTE | 2018-09-30 20:49 | EDPHYS ---
Physician Documentation [facility] Name: Johana Riley Age: 78 yrs Sex: Female : 1940 Arrival Date: 09/30/2018 Time: 18:51 Bed 27 Private MD: Jacky Vasquez H ED Physician Chadwick Lutz HPI: 09/30 19:24 This 78 yrs old Female presents to ER via Wheelchair with complaints of Fall rn Injury, Facial Injury. 19:24 Details of fall: The patient fell from an upright position, while walking. Onset: The rn symptoms/episode began/occurred just prior to arrival. Associated injuries: The patient sustained injury to the head. Severity of symptoms: At their worst the symptoms were mild, in the emergency department the symptoms are unchanged. The patient has not experienced similar symptoms in the past. Reports fall from standing, tripped over carpet, hit face on wood, no LOC, no seizure, no vomiting, remembers all events. Takes baby aspirin. . Historical: - Allergies: 18:55 No Known Allergies; sv - Home Meds: 19:21 Atenolol Oral [Active]; lisinopril Oral [Active]; aspirin 81 mg Oral chew 1 tab once mg2 daily [Active]; - PMHx: 18:55 GERD; Hypertension; sv - Immunization history:: Flu vaccine status is unknown. - Social history:: Smoking status: unknown. - Immunization history: Last tetanus immunization: unknown. - Ebola Screening: : No symptoms or risks identified at this time. - Family history:: not pertinent. - Hospitalizations: : No recent hospitalization is reported. ROS: 19:24 Constitutional: Negative for fever, chills, and weight loss, Eyes: Negative for injury, rn pain, redness, and discharge, ENT: + laceration to nasal bridge Neck: Negative for injury, pain, and swelling, Cardiovascular: Negative for chest pain, palpitations, and edema, Respiratory: Negative for shortness of breath, cough, wheezing, and pleuritic chest pain, Abdomen/GI: Negative for abdominal pain, nausea, vomiting, diarrhea, and constipation, Back: Negative for injury and pain, MS/Extremity: Negative for injury and deformity, Skin: Negative for injury, rash, and discoloration, Neuro: + headache, no focal neurological complaints Exam: 19:24 Constitutional: This is a well developed, well nourished patient who is awake, alert, rn and in no acute distress. Head/Face: Normocephalic, + small abrasion and frontal hematoma, 2cm irregular jagged avulsion over nasal bridge, no active bleeding. Eyes: Pupils equal round and reactive to light, extra-ocular motions intact. Lids and lashes normal. Conjunctiva and sclera are non-icteric and not injected. Cornea within normal limits. + left contact in, right contact out. ENT: Nares patent. No nasal discharge, no septal abnormalities noted. Tympanic membranes are normal and external auditory canals are clear. Oropharynx with no redness, swelling, or masses, exudates, or evidence of obstruction, uvula midline. Mucous membranes moist. Neck: No cervical tenderness Skin: Warm, dry MS/ Extremity: Pulses equal, no cyanosis. Neurovascular intact. Full, normal range of motion. Equal circumference. Neuro: Awake and alert, GCS 15, oriented to person, place, time, and situation. Cranial nerves II-XII grossly intact. Motor strength 5/5 in all extremities. Sensory grossly intact. Vital Signs: 18:55 BP 142 / 79; Pulse 63; Resp 16; Temp 97.6; Pulse Ox 97% ; Weight 63.5 kg; Height 5 ft. sv 2 in. (157.48 cm); Pain 5/10; 20:55 BP 133 / 78; Pulse 70; Resp 18; Pulse Ox 100% on R/A; Pain 0/10; mg2 18:55 Body Mass Index 25.61 (63.50 kg, 157.48 cm) sv [place] Coma Score: 19:20 Eye Response: spontaneous(4). Verbal Response: oriented(5). Motor Response: obeys mg2 commands(6). Total: 15. 20:55 Eye Response: spontaneous(4). Verbal Response: oriented(5). Motor Response: obeys mg2 commands(6). Total: 15. Trauma Score (Adult): 19:20 Eye Response: spontaneous(1); Verbal Response: oriented(1); Motor Response: obeys mg2 commands(2); Systolic BP: > 89 mm Hg(4); Respiratory Rate: 10 to 29 per min(4); [place] Score: 15; Trauma Score: 12 20:55 Eye Response: spontaneous(1); Verbal Response: oriented(1); Motor Response: obeys mg2 commands(2); Systolic BP: > 89 mm Hg(4); Respiratory Rate: 10 to 29 per min(4); Radha Score: 15; Trauma Score: 12 Laceration: 20:45 Wound Repair of 2cm ( 0.8in ) subcutaneous laceration to nasal bridge. Distal rn neuro/vascular/tendon intact. Anesthesia: Wound infiltrated with 2 mls of 1% lidocaine. Wound prep: Extensive cleansing by nurse, Particulate matter removal of glass by me, Wound explored extensively. Skin closed with 1 thin layer Adhesive skin closure using Dermabond. Dressed with dermabond. Patient tolerated well. MDM: 19:03 Patient medically screened. rn 20:45 Differential diagnosis: closed head injury, contusion, fracture. Data reviewed: vital rn signs, nurses notes, radiologic studies, CT scan, and as a result, I will discharge patient. Counseling: I had a detailed discussion with the patient and/or guardian regarding: the historical points, exam findings, and any diagnostic results supporting the discharge/admit diagnosis, radiology results, the need for outpatient follow up, to return to the emergency department if symptoms worsen or persist or if there are any questions or concerns that arise at home. Response to treatment: the patient's symptoms have markedly improved after treatment, and as a result, I will discharge patient. ED course: Patient with glass removed by me, wound dermabonded, more for hemostasis, and no sign of entrapment with orbital floor fracture. Will dc home with abx and ophtho f/u. . 09/30 19:08 Order name: CT Head Brain wo Cont; Complete Time: 19:56 rn 09/30 19:08 Order name: CT Facial Bones W/O Con; Complete Time: 19:56 rn 09/30 19:08 Order name: Wound Care; Complete Time: 19:14 rn Administered Medications: 20:53 Drug: Lidocaine (1 %) 1 vials Volume: 5 ml; Route: Infiltration; mg2 20:58 Follow up: Response: No adverse reaction mg2 Disposition: 09/30/18 20:48 Discharged to Home. Impression: Fracture of orbital floor, Laceration with foreign body of nose. - Condition is Stable. - Discharge Instructions: Tissue Adhesive Wound Care, Laceration Care, Adult, Orbital Floor Fracture Without Entrapment. - Prescriptions for Amoxicillin 875 mg Oral Tablet - take 1 tablet by ORAL route every 12 hours for 10 days; 20 tablet. - Medication Reconciliation Form, Thank You Letter, Antibiotic Education, Prescription Opioid Use form. - Follow up: Andra Pemberton MD; When: 2 - 3 days; Reason: Recheck today's complaints, Re-evaluation by your physician. - Problem is new. - Symptoms have improved. Signatures: Dispatcher [employer] EDMelissa Omalley RN RN sv Chadwick Lutz MD MD rn Gardose, Michele, RN RN mg2 Corrections: (The following items were deleted from the chart) 20:58 20:48 09/30/2018 20:48 Discharged to Home. Impression: Fracture of orbital floor; mg2 Laceration with foreign body of nose. Condition is Stable. Forms are Medication Reconciliation Form, Thank You Letter, Antibiotic Education, Prescription Opioid Use. Follow up: Andra Pemberton; When: 2 - 3 days; Reason: Recheck today's complaints, Re-evaluation by your physician. Problem is new. Symptoms have improved. rn
[2018-09-30] MEDS ORDERED: DERMABOND SKIN ADHESIVE TOP ONE (20:51)
== END 2018-09-30 20:58 | disposition home or self-care (01) ==
LOC: ER 18:49
PROC: 0JQ10ZZ Repair Face Subcutaneous Tissue and Fascia, Open Approach (ICD-10-PCS; principal; 2018-09-30)
DX: S02.30XA Fracture of orbital floor, unspecified side, initial encounter for closed fracture (principal); S01.22XA Laceration with foreign body of nose, initial encounter; W01.0XXA Fall on same level from slipping, tripping and stumbling without subsequent striking against object, initial encounter; Y93.01 Activity, walking, marching and hiking; Y92.9 Unspecified place or not applicable; Z79.82 Long term (current) use of aspirin; I10 Essential (primary) hypertension; K21.9 Gastro-esophageal reflux disease without esophagitis
CPT/HCPCS: 70450; 70486; 76377; 99285

== ENCOUNTER 2019-08-19 11:10 | Emergency (ER) | payer BC, OTHER ==
[2019-08-19] MEDS ORDERED: IBUPROFEN 200 MG TAB PO ONE (12:43)
[2019-08-19] MEDS ORDERED: IBUPROFEN 400 MG TAB ONE (12:43)
--- NOTE | 2019-08-19 13:05 | RAD REPORT ---
EXAM DESCRIPTION: RAD - Chest Single View - 08/19/2019 12:59 pm CLINICAL HISTORY: CHEST PAIN Chest pain. COMPARISON: Chest Single View dated 08/03/2018 FINDINGS: Portable technique limits examination quality. The lungs are grossly clear. The heart is normal in size. No displaced fractures. IMPRESSION: No acute intrathoracic process suspected.
--- NOTE | 2019-08-19 13:06 | RAD REPORT ---
EXAM DESCRIPTION: RAD - Ribs Left - 08/19/2019 12:59 pm CLINICAL HISTORY: chest wall pain COMPARISON: Chest Single View dated 08/19/2019 FINDINGS: No displaced rib fracture is seen. No aggressive rib lesion. No pneumothorax present.
--- NOTE | 2019-08-19 13:35 | ER ---
Nurse's Notes [facility] Name: Johana Riley Age: 79 yrs Sex: Female : 1940 Arrival Date: 08/19/2019 Time: 11:18 Bed 25 Private MD: Diagnosis: Chest wall contusion Presentation: 08/18 12:09 Acuity: CHAITANYA 4 dm5 Vital Signs: 13:14 BP 177 / 94; Pulse 59; Resp 18; Temp 98.4; Pulse Ox 100% ; Weight 59.87 kg; Height 5 ms ft. 2 in. (157.48 cm); Pain 4/10; 13:14 Body Mass Index 24.14 (59.87 kg, 157.48 cm) ms ED Course: 11:18 Patient arrived in ED. fj1 11:50 Sorin Card MD is Attending Physician. kdr 12:09 Estephania Ac, RN is Primary Nurse. dm5 12:10 Triage completed. dm5 12:57 Patient moved to radiology via wheelchair. jb2 12:58 X-ray completed. Patient tolerated procedure well. jb2 Administered Medications: 12:44 Drug: Ibuprofen 600 mg Route: PO; dm5 Outcome: 13:34 Discharge ordered by . kdr 14:00 Patient left the ED. ms Signatures: Estephania Ac, RN RN dm5 Sorin Card MD MD kdr Buechter, Jesse jb2 Villarreal, Maria ms James, Frank fj1
--- NOTE | 2019-08-19 13:35 | EDPHYS ---
Physician Documentation [facility] Name: Johana Riley Age: 79 yrs Sex: Female : 1940 Arrival Date: 08/19/2019 Time: 11:18 Bed 25 Private MD: ED Physician Sorin Card HPI: 08/18 12:13 This 79 yrs old Female presents to ER via Unassigned with complaints of Fall kdr Injury. 12:13 Details of fall: The patient fell from an upright position, while standing. Onset: The kdr symptoms/episode began/occurred suddenly. Associated injuries: The patient sustained injury to the chest, specifically the left lateral posterior chest and left lateral anterior chest. Severity of symptoms: At their worst the symptoms were mild, moderate, in the emergency department the symptoms are unchanged. The patient has not experienced similar symptoms in the past. The patient has not recently seen a physician. The patient's dog knocked her down on Saturday and she has had persistent trouble breathing since then. ROS: 12:13 Constitutional: Negative for fever, chills, and weight loss, Eyes: Negative for injury, kdr pain, redness, and discharge, ENT: Negative for injury, pain, and discharge, Neck: Negative for injury, pain, and swelling, Cardiovascular: Negative for chest pain, palpitations, and edema, Respiratory: Negative for shortness of breath, cough, wheezing, and pleuritic chest pain, Abdomen/GI: Negative for abdominal pain, nausea, vomiting, diarrhea, and constipation, Back: Negative for injury and pain, : Negative for injury, bleeding, discharge, and swelling, MS/Extremity: Negative for injury and deformity, Skin: Negative for injury, rash, and discoloration Except for left lateral chest where she has eccyhmosis Neuro: Negative for headache, weakness, numbness, tingling, and seizure activity. Psych: Negative for depression, anxiety, suicide ideation, homicidal ideation, and hallucinations, Allergy/Immunology: Negative for hives, rash, and allergies, Endocrine: Negative for neck swelling, polydipsia, polyuria, polyphagia, and marked weight changes, Hematologic/Lymphatic: Negative for swollen nodes, abnormal bleeding, and unusual bruising. Exam: 12:13 Constitutional: This is a well developed, well nourished patient who is awake, alert, kdr and in no acute distress. Head/Face: Normocephalic, atraumatic. Eyes: Pupils equal round and reactive to light, extra-ocular motions intact. Lids and lashes normal. Conjunctiva and sclera are non-icteric and not injected. Cornea within normal limits. Periorbital areas with no swelling, redness, or edema. Neck: Trachea midline, no thyromegaly or masses palpated, and no cervical lymphadenopathy. Supple, full range of motion without nuchal rigidity, or vertebral point tenderness. No Meningismus. Cardiovascular: Regular rate and rhythm with a normal S1 and S2. No gallops, murmurs, or rubs. Normal PMI, no JVD. No pulse deficits. Respiratory: Lungs have equal breath sounds bilaterally, clear to auscultation and percussion. No rales, rhonchi or wheezes noted. No increased work of breathing, no retractions or nasal flaring. Abdomen/GI: Soft, non-tender, with normal bowel sounds. No distension or tympany. No guarding or rebound. No evidence of tenderness throughout. Back: No spinal tenderness. No costovertebral tenderness. Full range of motion. Skin: Warm, dry with normal turgor. Normal color with no rashes, no lesions, and no evidence of cellulitis. MS/ Extremity: Pulses equal, no cyanosis. Neurovascular intact. Full, normal range of motion. Neuro: Awake and alert, GCS 15, oriented to person, place, time, and situation. Cranial nerves II-XII grossly intact. Motor strength 5/5 in all extremities. Sensory grossly intact. Cerebellar exam normal. Normal gait. Psych: Awake, alert, with orientation to person, place and time. Behavior, mood, and affect are within normal limits. 12:13 Chest/axilla: Inspection: normal, ecchymosis, that is mild, of the left lateral posterior chest and left lateral anterior chest Vital Signs: 13:14 BP 177 / 94; Pulse 59; Resp 18; Temp 98.4; Pulse Ox 100% ; Weight 59.87 kg; Height 5 ms ft. 2 in. (157.48 cm); Pain 4/10; 13:14 Body Mass Index 24.14 (59.87 kg, 157.48 cm) ms MDM: 12:13 Data reviewed: vital signs, nurses notes, radiologic studies. Counseling: I had a kdr detailed discussion with the patient and/or guardian regarding: the historical points, exam findings, and any diagnostic results supporting the discharge/admit diagnosis, radiology results, the need for outpatient follow up. 13:34 Patient medically screened. kdr 08/18 12:13 Order name: CXR XRAY kdr 08/18 12:13 Order name: Ribs Left XRAY kdr Administered Medications: 12:44 Drug: Ibuprofen 600 mg Route: PO; dm5 Disposition: 08/19/19 13:34 Discharged to Home. Impression: Chest wall contusion. - Condition is Stable. - Discharge Instructions: Rib Contusion, Chest Wall Pain, [id number], Contusion, Tyhn-it-[id number]. - Prescriptions for Ibuprofen 600 mg Oral Tablet - take 1 tablet by ORAL route every 6 hours As needed take with food; 30 tablet. - Medication Reconciliation Form, Thank You Letter form. - Follow up: Private Physician; When: 2 - 3 days; Reason: If symptoms return, Further diagnostic work-up, Recheck today's complaints, Continuance of care, Re-evaluation by your physician. - Problem is new. - Symptoms have improved. Signatures: Dispatcher [employer] EDMS Estephania Ac RN RN dm5 Sorin Card MD MD [facility] Loree Calderon ms Corrections: (The following items were deleted from the chart) 14:00 13:34 08/19/2019 13:34 Discharged to Home. Impression: Chest wall contusion. Condition ms is Stable. Forms are Medication Reconciliation Form, Thank You Letter, Antibiotic Education, Prescription Opioid Use. Follow up: Private Physician; When: 2 - 3 days; Reason: If symptoms return, Further diagnostic work-up, Recheck today's complaints, Continuance of care, Re-evaluation by your physician. Problem is new. Symptoms have improved. kdr
[2019-08-19 14:07] VITALS: BP 177/94; TEMP 98.4; O2SAT 100
== END 2019-08-19 14:00 | disposition home or self-care (01) ==
LOC: ER 11:10
DX: S20.212A Contusion of left front wall of thorax, initial encounter (principal); W01.0XXA Fall on same level from slipping, tripping and stumbling without subsequent striking against object, initial encounter; Y93.89 Activity, other specified; Y92.9 Unspecified place or not applicable
CPT/HCPCS: 71045; 99283

== ENCOUNTER 2021-06-24 11:42 | Inpatient (IN) | payer OTHER, BC ==
--- OUTSIDE RECORDS SUMMARY | 2021-06-24 11:46 | XMS REPORT | Clinical Summary ---
:1940 Author Organization [facility] MD [facility] Center Address [address] [place] [address] Care Team Providers Name Role Phone MD Shawn Primary Care Provider Mushtaq Garibay MD Unavailable Allergies No known active allergies Medications Medication Sig Dispensed Refills Start End Date Status Date atenolol (TENORMIN) 50 Take 50 mg 0 Active mg tablet by mouth 9 twice daily. losartan (COZAAR) 50 mg Take 50 mg 0 Active tablet by mouth 9 daily. ipratropium (ATROVENT) 3 (three) 0 Active 42 mcg (0.06 %) nasal times a 1 spray day. pantoprazole (PROTONIX) Take 40 mg 0 Active 40 mg EC tablet by mouth 9 every other day. hydroCHLOROthiazide daily. 0 Active (HYDRODIURIL) 25 mg 1 tablet senna-docusate Take 1 60 tablet 0 Activ e (Senokot-S) 8.6 mg-50 mg tablet by 1 tabletIndications: mouth Malignant neoplasm of twice endometrium daily. aspirin 81 mg EC tablet Take 81 mg 0 11/03 Discontinued by mouth 21 daily. acetaminophen (Tylenol Take 1 60 tablet 0 0 Discontinued Extra Strength) 500 mg tablet 1 21 (Therapy tabletIndications: (500 mg) c ompleted) Malignant neoplasm of by mouth endometrium every 6 (six) hours. ibuprofen (ADVIL,MOTRIN) Take 1 30 tablet 0 12/26 Discontinued 600 mg tablet 1 21 (Therapy tabletIndications: (600 mg) c ompleted) Malignant neoplasm of by mouth 3 endometrium (three) times a day with meals. oxyCODONE (Roxicodone) 5 Take 1 5 tablet 0 12/26 Discontinued mg immediate release tablet (5 1 21 (Therapy tabletIndications: mg) by c ompleted) Malignant neoplasm of mouth endometrium every 6 (six) hours as needed for severe pain. Active Problems Problem Noted Date Former heavy tobacco smoker 11/01/2020 Overview: Added automatically from request for rae michele [id number] Malignant neoplasm of endometrium 10/30/2020 Last Assessment & Plan: Dr. Escobar has recommended that the herminia ent undergo the following surgical procedure: Robotic-assisted total laparoscopic hysterectomy with bilateral salpingo-oophorectomy and sentinel lymph node mapping/biopsy. Risks, benefits, and alternatives have b een discussed with the patient. The patient has gone through our preoperative teaching with the care team. Specifically, risks included but not limited to bleedin g, infection, poor wound healing, hernia formation, damage to internal organs such as bowel, nerves, blood vessels, bladder, ureter, need for reoperation, conversion to open surgery, complications rela oclt to trochar insertion, need for prolo nged hospitalization or ICU stay, need for blood transfusion, . The patient has been consented for the a jourdan surgical procedure as well as for possible blood transfusion. We have discussed the risks of blood transfusion include but are not limited to infection with HIV, hepatitis B or C, allergic reaction s, risks of damage to the kidney or heart with rare but serious blood transfusion reactions. Information regarding carbohydrate loading has been discussed with the patient. We also discussed with the patient signs and symptoms to look out for after she goes home. We have explained that in general, she should be the same or better with each passing day. We have asked her to ambulate 8 times a day and to attempt t o be out of bed for 8 hours a day and to eat all meals in a chair. Should the patient develop any worsening abdominal pain, nausea vomiting, difficulty eating or drinking, difficulty urinating, confusio n, or any other worrisome symptoms, she should call immediately and present to the nearest emergency center for evaluation. She verbalized understanding and all her questions have been answered. Lumbar spondylosis 07/31/2019 Claus's nodes 05/07/2016 [place] node 05/07/2016 Degenerative joint disease involving multiple joints 1 07/07/2015 Essential hypertension 05/07/2016 Encounters Date Type Specialty Care Team Description 12/26/2020 Office Visit Gynecology Shawn, Malignant neopl asm MD Gabriel of endometrium (Primary Dx) 12/26/2020 Travel 12/13/2020 Telephone Surgical Oncology Sabine Ramirez RN 12/08/2020 Orders Only Gynecology Maryuri Bradshaw, Malignant neopl asm of endometrium (Primary Dx); PA Acute tubular n ecrosis; Hyposmolality a nd/or hyponatremia 12/06/2020 Orders Only Gynecology Maryuri Bradshaw, Malignant neopl asm PA of endometrium (Primary Dx) 12/05/2020 Office Visit Gynecology Shawn Malignant neopl asm MD Gabrile of endometrium 12/05/2020 Travel 12/02/2020 Telephone Gynecology Maryuri Bradshaw, PA 12/02/2020 Orders Only Gynecology Maryuri Bradshaw, Malignant neopl asm PA of endometrium (Primary Dx) 12/01/2020 Multidisciplinary Visit Gynecology Francisco Schroeder NP 11/14/2020 Orders Only Gynecology Maryuri Bradshaw, Malignant neopl asm of endometrium (Primary Dx); PA Acute tubular n ecrosis 11/11/2020 Surgery Shawn, ROBOTIC ASSISTPatricia Rios MD TOTAL HYSTERECT ROJAS 11/11/2020 Anesthesia Event Kimberley Cazares MD Mirza, Kazim, DO 11/11/2020 Hospital Encounter Gastrointestinal Branden Escobar neoplasm of endometrium; - Surgery MD Gabriel Essential hypertension; 11/12/2020 Henry, Former heavy to bacco smoker MD Delbert 11/11/2020 Travel 11/10/2020 Office Visit Gynecology Maryuri Bradshaw, Malignant neopl asm PA of endometrium Gabriel Escobar MD 11/10/2020 Clinical Support Infectious Diseases Maryuri Bradshaw, Enco unter for observation for other suspected exposure to biological agent ruled out (Primary Dx); PA Malignant neoplasm of endometrium; Jules, Essential hyper tension; Darnell, RN Former heavy to bacco smoker 11/10/2020 Travel 11/03/2020 Anesthesia Event Anesthesiology Rajani Adam NP 11/03/2020 Ancillary Procedure Radiology Maryuri Bradshaw, Malignan t neoplasm of endometrium; PA Essential hyper tension; Former heavy to bacco smoker 11/03/2020 Consult Internal Medicine Maryuri Bradshaw, Unspecifie d hearing loss, unspecified ear (Primary Dx); PA Malignant neoplasm of endometrium; Mukul, Essential hyper tension; MD Geremias Former heavy to bacco smoker; History of bertram gnant neoplasm of endometrium; Preoperative ca rdiovascular examination 11/03/2020 POEM Appointments Anesthesiology Gabriel Escobar MD 11/03/2020 Travel 11/02/2020 Orders Only Internal Medicine Alonso Patrick APN 11/02/2020 Orders Only Internal Medicine Darnell, History of Alonso Saenz APN malignant neopl asm of endometrium (Primary Dx) 11/01/2020 Orders Only Infectious Diseases Brandon, SARS-CoV -2 MD Krishna vaccination 10/31/2020 Office Visit Gynecology Shawn, Malignant neopl asm of endometrium (Primary Dx); MD Gabriel Essential hyper tension; Former heavy to bacco smoker 10/31/2020 NPR Patient Access Jay Escobar MD 10/31/2020 Prep for Surgery Gynecology EdgardrajeshMaryuri, Malignant n eoplasm of endometrium (Primary Dx); PA Essential hyper tension; Former heavy to bacco smoker 10/31/2020 Travel 10/29/2020 Clinical Support Infectious Diseases Shawn, Emani ected COVID-19 MD Gabriel (Primary Dx) Felicia Bhagat MA 10/29/2020 Travel after 06/24/2020 Surgical History Surgery Date Site/Laterality Comments BACK SURGERY 03/10/2020 - 04/09/2020 DILATION AND CURETTAGE OF 09/08/2020 - UTERUS 10/07/2020 EXTERNAL EAR SURGERY 06/10/2010 - 06/09/2011 VA LAPAROSCOPY TOT 11/11/2020 N/A Procedure: RO BOTIC HYSTERECTOMY UTERUS >250 ASSISTE D TOTAL GRAM W TUBE/OVARY HYSTERECTOMY; Surgeon: Gabriel Escobar MD ; Location: MAIN O R; Service: LYMPHEDEMA THERAPIST - G YNECOLOGIC ONCOLOGY VA REMOVAL OF 11/11/2020 Bilateral Procedure: ROBOT IC OVARY/TUBE(S) ASSISTED SALPINGO-OOPHORE CTOMY; Surgeon: Gabriel hanson MD; Location: MAIN OR; Service: LYMPHEDEMA THERAPIST - G YNECOLOGIC ONCOLOGY VA INTRAOPERATIVE SENTINEL 11/11/2020 Bilateral Proce dure: INTRAOPERATIVE LYMPH NODE ID W DYE LYMPHATIC MA PPING; INJECTION Surgeon: Gabriel hanson MD; Location: MAIN OR; Service: LYMPHEDEMA THERAPIST - G YNECOLOGIC ONCOLOGY VA REMOVAL, PELVIC LYMPH 11/11/2020 Abdomen/Bilateral Proce dure: LIMITED NODES,STAGING LYMPHADENECTOMY FOR STAGING; PELVIC AND PARA-AORTIC LYMP H NODES; Surgeon: Gabriel hanson MD; Location: MAIN OR; Service: LYMPHEDEMA THERAPIST - G YNECOLOGIC ONCOLOGY Medical History Medical History Date Comments Hypertension Acid reflux Cancer Gastroesophageal reflux disease Social History Tobacco Use Types Packs/Day Years Used Date Former Smoker Cigarettes 1 1948 - 06/2019 Smokeless Tobacco: Never Used Alcohol Use Standard Drinks/Week Comments Yes 14 (1 standard drink = 0.6 oz pure alcoh ol) Sex Assigned at Date Recorded Not on file Job Start Date Occupation Industry Not on file Not on file Not on file Obstetrics History Para Term AB IAB SAB Ectopic Multiple Living Live Births 7 5 Date Outcome GA Total Labor/2nd/3rd Weight Sex Delivery Anes PTL Steph A 1 A5 Name Clin Labor Para Para Para Para Para Last Filed Vital Signs Vital Sign Reading Time Taken Comments Blood Pressure 154/75 12/26/2020 10:03 AM CDT Pulse 71 12/26/2020 10:03 AM CDT Temperature 37 C (98.6 F) 12/26/2020 10:03 AM CDT Respiratory Rate 18 12/26/2020 10:03 AM CDT Oxygen Saturation 97% 11/12/2020 11:39 AM CDT Inhaled Oxygen Concentration - - Weight 61.1 kg (134 lb 11.2 oz) 12/26/2020 10:03 AM CDT Height 154 cm (5' 0.63") 11/11/2020 10:10 PM CDT Body Mass Index 25.76 11/11/2020 10:10 PM CDT Plan of Treatment Date Type Specialty Care Team Description 07/03/2021 Office Visit Gynecology Gabriel Escobar M D [address] [place], [place] [address] (Wo rk) Health Maintenance Due Date Last Done Comments COVID-19 Vaccination (1) 1945 Implants Implanted Type Area Collection Clerk Device Identifier Shelf Exp iration Model / Date Serial / L ot [employer] Spine Procedures Procedure Name Priority Date/Time Associated Comments Diagnosis CALCIUM LEVEL TOTAL Timed Study 11/12/2020 11:06 Resu lts for this AM CDT procedure are i n the results section. .GLOMERULAR FILTRATION Timed Study 11/12/2020 11:06 R esults for this RATE AM CDT procedure are i n the results section. SERUM CREATININE Timed Study 11/12/2020 11:06 Results for this AM CDT procedure are i n the results section. ELECTROLYTE PANEL Timed Study 11/12/2020 11:06 Result s for this AM CDT procedure are i n the results section. BLOOD UREA NITROGEN Timed Study 11/12/2020 11:06 Resu lts for this AM CDT procedure are i n the results section. GLUCOSE LEVEL Timed Study 11/12/2020 11:06 Results fo r this AM CDT procedure are i n the results section. BASIC METABOLIC PANEL, Timed Study 11/12/2020 11:06 CALCIUM TOTAL AM CDT COMPLETE BLOOD COUNT W/ Timed Study 11/12/2020 11:06 Results for this INDICES AM CDT procedure are i n the results section. ANION GAP AM 11/12/2020 12:32 Results for this AM CDT procedure are i n the results section. .GLOMERULAR FILTRATION AM 11/12/2020 12:32 R esults for this RATE AM CDT procedure are i n the results section. SERUM CREATININE AM 11/12/2020 12:32 Results for this AM CDT procedure are i n the results section. MANUAL DIFFERENTIAL AM 11/12/2020 12:32 Resu lts for this AM CDT procedure are i n the results section. Results CBC AM 11/12/2020 12:32 Results for this AM CDT procedure are i n the results section. GLUCOSE, RANDOM AM 11/12/2020 12:32 Results for this AM CDT procedure are i n the results section. SERUM CREATININE AM 11/12/2020 12:32 AM CDT BLOOD UREA NITROGEN AM 11/12/2020 12:32 Resu lts for this AM CDT procedure are i n the results section. MAGNESIUM LEVEL AM 11/12/2020 12:32 Results for this AM CDT procedure are i n the results section. POTASSIUM LEVEL AM 11/12/2020 12:32 Results for this AM CDT procedure are i n the results section. CHLORIDE LEVEL AM 11/12/2020 12:32 Results f or this AM CDT procedure are i n the results section. CARBON DIOXIDE LEVEL AM 11/12/2020 12:32 Res ults for this AM CDT procedure are i n the results section. SODIUM LEVEL AM 11/12/2020 12:32 Results for this AM CDT procedure are i n the results section. COMPLETE BLOOD COUNT W/ AM 11/12/2020 12:32 DIFFERENTIAL AM CDT MANUAL DIFFERENTIAL STAT 11/11/2020 9:38 Resu lts for this PM CDT procedure are i n the results section. Results CBC STAT 11/11/2020 9:38 Results for this PM CDT procedure are i n the results section. PROTHROMBIN TIME STAT 11/11/2020 9:38 Results for this PM CDT procedure are i n the results section. APTT STAT 11/11/2020 9:38 Results for this PM CDT procedure are i n the results section. COMPLETE BLOOD COUNT W/ STAT 11/11/2020 9:38 DIFFERENTIAL PM CDT PATHOLOGY SURGICAL Routine 11/11/2020 5:11 Malignant Resul ts for this INTERPRETATION PM CDT neoplasm of procedure are in endometrium the results Essential section. 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 ium Essential hypertension Former heavy tobacco smoker Special Needs [email or web address] INTRAOPERATIVE LYMPHATIC 11/11/2020 2:52 PM Mal ignant neoplasm of endometrium MAPPING CDT Essential hypert ension Former heavy tobacco smoker Special Needs [email or web address] ROBOTIC ASSISTED 11/11/2020 2:52 PM Malignant neoplas m of SALPINGO-OOPHORECTOMY CDT endometriu m Essential hypert ension Former heavy tobacco smoker Special Needs [email or web address] ROBOTIC ASSISTED TOTAL 11/11/2020 2:52 PM Malig nant neoplasm of endometrium HYSTERECTOMY CDT Essential hypert ension Former heavy tobacco smoker Special Needs [email or web address] TMP INTERPRETATION Routine 11/11/2020 2:29 Resul ts for this ANTIBODY SCREEN NEGATIVE PM CDT pro cedure are in the results section. CLOT EXPIRATION DATE Routine 11/11/2020 2:29 Res ults for this PM CDT procedure are i n the results section. ANTIBODY SCREEN Now 11/11/2020 2:29 Results for this PM CDT procedure are i n the results section. ABORH Now 11/11/2020 2:29 Results for this PM CDT procedure are i n the results section. TYPE AND SCREEN Now 11/11/2020 2:29 PM CDT COVID-19 (SARS-COV-2) Routine 11/10/2020 12:00 Encounter for R esults for this PCR-ASYMPTOMATIC [facility] PM CDT observation for buck william are in other suspected the results exposure to section. biological agent ruled out CT CHEST ABDOMEN PELVIS Routine 11/03/2020 6:13 Malignant bibiana plasm Results for this W CONTRAST PM CDT of endometrium procedure are in Essential the results hypertension section. Former heavy tobacco smoker CONFIRM ABORH TYPE Routine 10/31/2020 10:59 Resul ts for this AM CDT procedure are i n the results section. URINALYSIS MICROSCOPIC Routine 10/31/2020 10:57 R esults for this AM CDT procedure are i n the results section. URINALYSIS WITH Routine 10/31/2020 10:57 Malignant neoplasm Re sults for this MICROSCOPIC IF INDICATED AM CDT of endometrium p rocedure are in the results section. URINE CULTURE Routine 10/31/2020 10:57 Malignant neoplasm Resu lts for this AM CDT of endometrium procedure are in the results section. TMP INTERPRETATION Routine 10/31/2020 10:47 Resul ts for this EXCEPTION PREOP AM CDT procedure ar e in EXPIRATION the results section. TMP HIV 1/2 AG&AB PATH Routine 10/31/2020 10:47 R esults for this INTERP AM CDT procedure are i n the results section. TMP INTERPRETATION Routine 10/31/2020 10:47 Resul ts for this ANTIBODY SCREEN NEGATIVE AM CDT pro cedure are in the results section. CLOT EXPIRATION DATE Routine 10/31/2020 10:47 Res ults for this AM CDT procedure are i n the results section. HEPATITIS C VIRUS AB Routine 10/31/2020 10:47 Res ults for this SCREEN W/REFLEX HCV PCR AM CDT proc edure are in the results section. ANTIBODY SCREEN Routine 10/31/2020 10:47 Malignant neoplasm Re sults for this AM CDT of endometrium procedure are in the results section. ABORH Routine 10/31/2020 10:47 Malignant neoplasm Resul ts for this AM CDT of endometrium procedure are in the results section. FRACTIONATED BILIRUBIN Routine 10/31/2020 10:47 Malignant neop lasm Results for this AM CDT of endometrium procedure are in the results section. TOTAL PROTEIN Routine 10/31/2020 10:47 Malignant neoplasm Resu lts for this AM CDT of endometrium procedure are in the results section. ASPARTATE Routine 10/31/2020 10:47 Malignant neoplasm Resul ts for this AMINOTRANSFERASE AM CDT of endometrium procedure are in the results section. ALANINE AMINOTRANSFERASE Routine 10/31/2020 10:47 Malignant ne oplasm Results for this AM CDT of endometrium procedure are in the results section. ALKALINE PHOSPHATASE Routine 10/31/2020 10:47 Malignant neopla sm Results for this AM CDT of endometrium procedure are in the results section. ALBUMIN LEVEL Routine 10/31/2020 10:47 Malignant neoplasm Resu lts for this AM CDT of endometrium procedure are in the results section. CALCIUM LEVEL TOTAL Routine 10/31/2020 10:47 Malignant neoplas m Results for this AM CDT of endometrium procedure are in the results section. .GLOMERULAR FILTRATION Routine 10/31/2020 10:47 Malignant neop lasm Results for this RATE AM CDT of endometrium procedure are in the results section. SERUM CREATININE Routine 10/31/2020 10:47 Malignant neoplasm R esults for this AM CDT of endometrium procedure are in the results section. ELECTROLYTE PANEL Routine 10/31/2020 10:47 Malignant neoplasm Results for this AM CDT of endometrium procedure are in the results section. BLOOD UREA NITROGEN Routine 10/31/2020 10:47 Malignant neoplas m Results for this AM CDT of endometrium procedure are in the results section. GLUCOSE LEVEL Routine 10/31/2020 10:47 Malignant neoplasm Resu lts for this AM CDT of endometrium procedure are in the results section. MANUAL DIFFERENTIAL Routine 10/31/2020 10:47 Malignant neoplas m Results for this AM CDT of endometrium procedure are in the results section. Results CBC Routine 10/31/2020 10:47 Malignant neoplasm Resul ts for this AM CDT of endometrium procedure are in the results section. HEMOGLOBIN A1C Routine 10/31/2020 10:47 Malignant neoplasm Res ults for this AM CDT of endometrium procedure are in the results section. HC HIV 1/2 AG AND AB 4TH Routine 10/31/2020 10:47 Malignant ne oplasm Results for this GEN AM CDT of endometrium procedure are in the results section. HEPATITIS C VIRUS Routine 10/31/2020 10:47 Malignant neoplasm Results for this ANTIBODY AM CDT of endometrium procedure are in the results section. TYPE AND SCREEN Routine 10/31/2020 10:47 Malignant neoplasm AM CDT of endometrium APTT Routine 10/31/2020 10:47 Malignant neoplasm Resul ts for this AM CDT of endometrium procedure are in the results section. PROTHROMBIN TIME Routine 10/31/2020 10:47 Malignant neoplasm R esults for this AM CDT of endometrium procedure are in the results section. CANCER ANTIGEN 125 Routine 10/31/2020 10:47 Malignant neoplasm Results for this AM CDT of endometrium procedure are in the results section. COMPREHENSIVE METABOLIC Routine 10/31/2020 10:47 Malignant bibiana plasm PANEL AM CDT of endometrium COMPLETE BLOOD COUNT W/ Routine 10/31/2020 10:47 Malignant bibiana plasm DIFFERENTIAL AM CDT of endometrium EKG, 12-LEAD (SCHEDULED) Routine 10/31/2020 Malignant neopla sm of endometrium Essential hypertension Former heavy tobacco smoker COVID-19 (SARS-COV-2) Routine 10/29/2020 11:49 Suspected COVID -19 Results for this PCR-ASYMPTOMATIC [facility] AM CDT procedur e are in the results section. after 06/24/2020 Results (ABNORMAL) .Serum Creatinine (11/12/2020 11:06 AM CDT)Only the most recent of3 resultswithin the time period is included. Pathologist Sig nature Creatinine 1.20 (H) 0.51 - 0.95 mg/dL [facility] Specimen Blood Performing Organization Address City/State/ZIP Code Phon e Number [facility] Unless otherwise noted, [place] [address] CENTER all lab tests performed by: Division of Pathology and Laboratory Medicine [address] (ABNORMAL) Glomerular Filtration Rate (11/12/2020 11:06 AM CDT)Only the most recent of3 resultswithin the time period is included. eGFR-AA 49 (L) >=60 [facility] Comment: mL/min/1.73 [facility] [place] Normal eGFR: >= 60 mL/min/1.73 m2 sq. m Note: The eGFR is calculated using the CKD-EPI equation. The eGFR declines with age. eGFR <60 mL/min/1.73 m2 is considered as "decreased". This equation should only be used for patients 18 and older. According to the National dney Foundation's Kidney Disease Outcome Quality Initiative (KDOQI) classification and 2012 Kidney Disease Improving Global Outcomes (KDIGO) Clinical Practice Guideline, the stage of CKD should be categorized based on estimated GFR. Stage Description GFR mL/min/1.73 m2 1 Normal or high GFR >=90 2 Mildly decreased GFR 60-89 3a Mildly to moderately decreased GFR 45-59 3b Moderately to severely decreased GFR 30-44 4 Severely decreased GFR 15-29 5 Kidney failure <15 eGFR-FRANK 42 (L) >=60 [facility] Comment: mL/min/1.73 [facility] Normal eGFR: >= 60 mL/min/1.73 m2 sq. m Note: The eGFR is calculated using the CKD-EPI equation. The eGFR declines with age. eGFR <60 mL/min/1.73 m2 is considered as "decreased". This equation should only be used for patients 18 and older. According to the National dney Foundation's Kidney Disease Outcome Quality Initiative (KDOQI) classification and 2012 Kidney Disease Improving Global Outcomes (KDIGO) Clinical Practice Guideline, the stage of CKD should be categorized based on estimated GFR. Stage Description GFR mL/min/1.73 m2 1 Normal or high GFR >=90 2 Mildly decreased GFR 60-89 3a Mildly to moderately decreased GFR 45-59 3b Moderately to severely decreased GFR 30-44 4 Severely decreased GFR 15-29 5 Kidney failure <15 Specimen Blood Performing Organization Address City/State/ZIP Code Phon e Number [facility] Unless otherwise noted, [place] [address] [place] all lab tests performed by: Division of Pathology and Laboratory Medicine [address] (ABNORMAL) Complete Blood Count w/o Differential (11/12/2020 11:06 AM CDT) WBC 7.5 4.0 - 11.0 [facility] K/uL [facility] RBC 2.75 (L) 4.00 - 5.50 [facility] M/uL [facility] Hgb 10.6 (L) 12.0 - 16.0 [facility] gm/dL [facility] Hct 30.2 (L) 37.0 - 47.0 % [facility] MCV 110 (H) 82 - 98 fL [facility] MCH 38.5 (H) 27.0 - 31.0 pg [facility] MCHC 35.1 31.0 - 36.0 [facility] gm/dL [facility] RDW-SD 52.3 (H) 35.1 - 46.3 fL [facility] RDW-CV 13.1 12.0 - 15.5 % [facility] Platelet count 144 140 - 440 K/uL [facility] MPV 11.2 (H) 4.0 - 10.4 fL [facility] INRBC 0.0 <=0.0 % [facility] Comment: [facility] The INRBC (instrument NRBC) value reflects the enumera tion of nucleated red blood cells contained in a 200uL samp le of whole blood analyzed by the instrument. This value may differ from the NRBC value reported in a manual differ ential, which is based on a 100 cell differential. Specimen Blood Performing Organization Address City/[facility] [address]/ZIP Code Phon e Number [facility] Unless otherwise noted, [address] all lab tests performed by: Division of Pathology and Laboratory Medicine [address] [facility] BUN (11/12/2020 11:06 AM CDT)Only the most recent of3 resultswithin the time period is included. Pathologist Sig nature BUN 14 6 - 23 mg/dL [facility] Specimen Blood Performing Organization Address City/[facility] [address]/[facility] Phon e Number [facility] Unless otherwise noted, [address] all lab tests performed by: Division of Pathology and Laboratory Medicine [address] [facility] (ABNORMAL) Glucose Level (11/12/2020 11:06 AM CDT)Only the most recent of2 resultswithin the time period is included. Glucose Level 151 (H) 70 - 99 mg/dL [facility] Comment: [facility] Effective 01/04/16, the gluco se reference intervals have been updated based on [place] [employer] guidelines (Standards of Medical Care in Diabetes 2016. Diabetes Care 2016; 39: S13-S22). Fasting blood glucose: Normal: 70 99 mg/dL Impaired fasting glucose (in creased risk for diabetes or pre-diabetes): 100 125 mg/dL Diabetes mellitus: >/=126 mg/dL Random blood glucose: Normal: 70 199 mg/dL Note: Random glucose >100 mg/dL is assoc iated with increased risk for diabetes Specimen Blood Performing Organization Address [facility] [address] [facility] Phon e Number [facility] Unless otherwise noted, [address] all lab tests performed by: Division of Pathology and Laboratory Medicine [address] [place] Calcium Level (11/12/2020 11:06 AM CDT)Only the most recent of2 resultswithin the time period is included. Pathologist Sig nature Calcium Lvl 8.6 8.4 - 10.2 mg/dL [facility] NTER Specimen Blood Performing Organization Address [facility] e [facility] Unless otherwise noted, [address] all lab tests performed by: Division of Pathology and Laboratory Medicine [address] (ABNORMAL) Electrolyte Panel (11/12/2020 11:06 AM CDT)Only the most recent of2 resultswithin the time period is included. Pathologist Sig nature Sodium Lvl 131 (L) 136 - 145 mEq/L [facility] Potassium Lvl 4.2 3.5 - 5.1 mEq/L [facility] Chloride 95 (L) 98 - 107 mEq/L [facility] CO2 24 22 - 29 mEq/L [facility] Anion Gap 12 4 - 14 mEq/L [facility] Specimen Blood Performing Organization Address [facility] [address]/[facility] e Number [facility] Unless otherwise noted, [address] all lab tests performed by: Division of Pathology and Laboratory Medicine [address] [place] Glucose, Random (11/12/2020 12:32 AM CDT) Glucose Random 192 70 - 199 mg/dL [facility] Comment: [facility] Effective 01/04/16, the gluco se reference intervals have been updated based on [place] [employer] guidelines (Standards of Medical Care in Diabetes 2016. Diabetes Care 2016; 39: S13-S22). Fasting blood glucose: Normal: 70 99 mg/dL Impaired fasting glucose (in creased risk for diabetes or pre-diabetes): 100 125 mg/dL Diabetes mellitus: >/=126 mg/dL Random blood glucose: Normal: 70 199 mg/dL Note: Random glucose >100 mg/dL is assoc iated with increased risk for diabetes Specimen Blood Performing Organization Address City/State/ZIP Code Phon e Number [facility] Unless otherwise noted, [address] all lab tests performed by: Division of Pathology and Laboratory Medicine [address] [place] [address] (ABNORMAL) Anion Gap (11/12/2020 12:32 AM CDT) Pathologist Sig nature Anion Gap 16 (H) 4 - 14 mEq/L [facility] Specimen Blood Performing Organization Address City/[facility] [address]/[facility] Phon e Number [facility] Unless otherwise noted, [address] all lab tests performed by: Division of Pathology and Laboratory Medicine [address] [place] [address] (ABNORMAL) .CBC (11/12/2020 12:32 AM CDT)Only the most recent of3 resultswithin the time period is included. WBC 6.3 4.0 - 11.0 [facility] K/[facility] RBC 2.86 (L) 4.00 - 5.50 [facility] M/[facility] Hgb 10.9 (L) 12.0 - 16.0 [facility] Hct 31.0 (L) 37.0 - 47.0 % [facility] MCV 108 (H) 82 - 98 fL [facility] MCH 38.1 (H) 27.0 - 31.0 pg [facility] MCHC 35.2 31.0 - 36.0 [facility] 51.6 (H) 35.1 - 46.3 fL [facility] RDW-CV 12.9 12.0 - 15.5 % [facility] Platelet count 124 (L) 140 - 440 K/uL [facility] MPV 11.0 (H) 4.0 - 10.4 fL [facility] INRBC 0.0 <=0.0 % [facility] Comment: CANCER CENTER The INRBC (instrument NRBC) value reflects the enumera tion of nucleated red blood cells contained in a 200uL samp le of whole blood analyzed by the instrument. This value may differ from the NRBC value reported in a manual differ ential, which is based on a 100 cell differential. Specimen Blood Performing Organization Address City/[facility] [address]/[facility] Phon e Number [facility] Unless otherwise noted, [address] all lab tests performed by: Division of Pathology and Laboratory Medicine [address] (ABNORMAL) Differential (11/12/2020 12:32 AM CDT)Only the most recent of3 resultswithin the time period is included. Neutrophil % 82.7 (H) 42.0 - 66.0 % [facility] Lymphocyte % 10.3 (L) 24.0 - 44.0 % [facility] Monocyte % 6.3 2.0 - 7.0 % [facility] Eosinophil % 0.0 (L) 1.0 - 4.0 % [facility] Basophil % 0.2 0.0 - 1.0 % [facility] IGRE % 0.5 (H)Comment: 0.0 - 0.4 % [facility] IGRE % count [facility] includes Metamyelocytes, Myelocytes, and Promyelocytes. Neutrophil Abs 5.25 1.70 - 7.30 [facility] Lymphocyte Abs 0.65 (L) 1.00 - 4.80 [facility] Monocyte Abs 0.40 0.08 - 0.70 [facility] Eosinophil Abs 0.00 (L) 0.04 - 0.40 [facility] Basophil Abs 0.01 0.00 - 0.10 [facility] IG Abs 0.03 0.00 - 0.04 [facility] Specimen Blood Performing Organization Address City/[facility] [address]/[facility] Phon e Number [facility] Unless otherwise noted, [address] all lab tests performed by: Division of Pathology and Laboratory Medicine [address] [place] (ABNORMAL) Sodium Level (11/12/2020 12:32 AM CDT) Pathologist Sig nature Sodium Lvl 135 (L) 136 - 145 mEq/L [facility] TER Specimen Blood Performing Organization Address [facility] [address]/[facility] Phon e Number [facility] Unless otherwise noted, [address] all lab tests performed by: Division of Pathology and Laboratory Medicine [address] [place] Potassium Level (11/12/2020 12:32 AM CDT) Pathologist Sig nature Potassium Lvl 3.7 3.5 - 5.1 mEq/L [facility] Specimen Blood Performing Organization Address City/[facility] [address]/[facility] Phon e Number [facility] Unless otherwise noted, [address] all lab tests performed by: Division of Pathology and Laboratory Medicine [address] [place] (ABNORMAL) Magnesium Level (11/12/2020 12:32 AM CDT) Pathologist Sig nature Magnesium 1.1 (L) 1.6 - 2.6 mg/dL [facility] TER Specimen Blood Performing Organization Address [facility] [address]/[facility] Phon e Number [facility] Unless otherwise noted, [address] all lab tests performed by: Division of Pathology and Laboratory Medicine [address] [place] (ABNORMAL) Chloride Level (11/12/2020 12:32 AM CDT) Pathologist Sig nature Chloride 96 (L) 98 - 107 mEq/L [facility] Specimen Blood Performing Organization Address [facility] [address]/[facility] Phon e Number [facility] Unless otherwise noted, [address] all lab tests performed by: Division of Pathology and Laboratory Medicine [address] [place] Carbon Dioxide Level (11/12/2020 12:32 AM CDT) Pathologist Sig nature CO2 23 22 - 29 mEq/L [facility] R Specimen Blood Performing Organization Address [facility] [address]/[facility] Phon e Number [facility] Unless otherwise noted, [address] all lab tests performed by: Division of Pathology and Laboratory Medicine [address] [place] Partial Thromboplastin Time (11/11/2020 9:38 PM CDT)Only the most recent of2 resultswithin the time period is included. Pathologist Sig nature aPTT 30.4 24.7 - 36.8 second(s) [facility] ER CENTER Specimen Blood Performing Organization Address City/State/ZIP Code Phon e Number [facility] Unless otherwise noted, [address] all lab tests performed by: Division of Pathology and Laboratory Medicine [address] [place] [address] (ABNORMAL) Prothrombin Time with INR (11/11/2020 9:38 PM CDT)Only the most recent of2 resultswithin the time period is included. Pathologist Sig nature PT 14.7 (H) 11.5 - 13.9 [facility] second(s) CENTER INR 1.23 (H) 0.90 - 1.10 [facility] Specimen Blood Performing Organization Address City/[facility] [address]/[facility] Code Phon e Number [facility] Unless otherwise noted, [address] all lab tests performed by: Division of Pathology and Laboratory Medicine [address] [place] [address] Pathology Surgical Interpretation (11/11/2020 5:11 PM CDT) Submitted Malignant neoplasm of [facility] Clinical History endometrium [C54.1]; Essential hypertension [I10]; Former heavy tobacco smoker [Z87.891] Diagnosis [facility] Electronically A: signed by Christiano domínguez Left obturator sentinal lymph node (green): MD Bert on 11/23/2020 One lymph node, no tumor present (See comment) at 4:27 PM Preliminary res ult B: electronically Right obturator sentinal lymph node (green): signed by Haven One lymph node, no tumor present (See comment) MD Bert on 11/22/2020 at 4:30 PM C: Right obturator non-sentinal lymph node (not green): One lymph node, no tumor present (See comment) D: Right external iliac sentinal lymph node (green) One lymph node, no tumor present (See comment) E: Uterus, cervix, right tube and ovary: ENDOMETRIAL ENDOMETROID ADENOCARCINOMA, FIGO GRADE II. (SEE CAP SYNOPTIC REPORT) Endometrial polyp Comment #1: Deeper levels and immuno histochemical staining for cytokeratin was performed, no metastatic carcinoma is identified. [facility] #2. Immunohistochemical stai ngozi of tumor cell is positive for PAX8, CK-7 (focal), ER (focal), VA (focal) and negative for WT-1. The immunohistochemical staining for p53 is wild type, supporting the diagnosis rendered above. Synoptic ENDOMETRIUM (ENDOMETRIUM: HYSTERECTOMY - All Specime ns) [facility] Checklist 8th Edition - Protocol posted: 08/05/2019 SPECIMEN Procedure: Total hysterectomy and bilateral s alpingo-oophorectomy TUMOR Tumor Site: Endometrium Histologic Type: Endometrioid carcinoma, NOS Histologic Grade: FIGO grade 2 Myometrial Invasion: Not identified Uterine Serosa Involvement: Not identified Cervical Stromal Involvement: Not identified Other Tissue / Organ Involvement: Not applica ble Lymphovascular Invasion: Not identified MARGINS LYMPH NODES Lymph Node Status: All lymph nodes negative f or tumor cells Total Number of Pelvic Nodes Examined: 4 Number of Pelvic [place] Nodes Examined: 4 Total Number of Para-aortic Nodes Examined: 0 PATHOLOGIC STAGE CLASSIFICATION (pTNM, AJCC 8th Editio n) Primary Tumor (pT): pT1a Regional Lymph Nodes Modifier: (sn) Regional Lymph Nodes (pN): pN0 FIGO STAGE FIGO Stage: IA Gross Description A: [facility] Left obturator sentinal lymp h node (green): Consists of 2 possible trujillo lymph nodes with associated adipose tissue (1.1 x 0.8 x 0.4 cm and 1.8 x 0.9 x 0.4 cm). SECTION CODE: A1, 1 possible lymph node serially sectioned; A2-3, 1 possible lymph node serially sectioned. ES B: Right obturator sentinal lym ph node (green): Consists of 2 possible slightly fragmented lymph nodes with a small amount of associated adipose tissue (1.5 x 1.0 x 0.5 cm and 2.4 x 1.4 x 0.7 cm). SECTION CODE: B1-2, 1 possib le lymph node serially sectioned; B3-4, 1 possible lymph node serially sectioned. ES C: Right obturator non-sentinal lymph node (not green): Consists of 1 possible fragmented lymph node with attached adipose tissue (3.2 x 1.5 x 1.0 cm). The lymph node serially sectioned and entirely submitted C1-4. ES D: Right external iliac sentina l lymph node (green): Consists of 1 possible fragmented lymph node with a small amount of attached adipose tissue (1.5 x 1.5 x 0.5 cm). The specimen is serially sectioned and entirely submitted D1-2. ES E: Uterus, cervix, right tube a nd ovary: Consists of a uterus with attached cervix (8.5 x 6.0 x 3.5 cm), right ovary (2.0 x 1.6 x 1.2 cm, each), right Fallopian tube (2.4 x 0.3 cm, each). The uterus weigh s 96 g and has a pink-trujillo sm ooth and glistening intact serosa with focal areas of congestion and cautery. The uterus is inked and bivalved to reveal a grossly unremarkable cervix and lower uterine segme nt. There is a trujillo friable tumor that measures 3.8 x 2.3 cm and involves the posterior. The tumor is serially sectioned to reveal a depth of invasion of 0.3 cm. The myometrium in this area measures 1. 5 cm in thickness. Right ova ry is sectioned to reveal grossly unremarkable ovarian parenchyma. The right tube is sectioned to reveal a patent lumen. No fimbriated end is grossly identified. Representati ve sections are submitted. S pecimen is grossed fixed. Ink code: Blue anterior cervix; Black posterior cervix; Green uterine serosa. SECTION CODE: E1 right tube; E2 right ovary; E3-E4 left adnexa; E5 anterior cervix; E6 posterior cervix; E7 anterior lower uterine segment; E8 posterior lower uterine segment; E9-E10 anterior endomyomet rium with possible tumor; E1 1-E15 posterior tumor to serosa in each cassette; E16 loose tumor [employer] T: E12; N: E2 [facility] Block(s) Disclaimer "Some tests reported here [facility] may have been developed and performance characteristics determined by [facility] Pathology and Laboratory Medicine. These tests have not been specifically cleared or approved by the U.S. Food and Drug Administration. If applicable, controls were reviewed and showed appropriate reactivity." Specimen Tissue - [place] Lymph Node Tissue - [place] Lymph Node Tissue - Lymph Node(s), Right, Obturator Tissue - [place] Lymph Node Tissue - Uterus, Cervix, Right Fallopian Tube, Right Ovary Performing Organization Address City/State/ZIP Code Phon e Number [facility] [place] [address] [address] Clot Expiration Date (11/11/2020 2:29 PM CDT)Only the most recent of2 results within the time period is included. Pathologist [facility] T & S Expiration 11/14/2020 [facility] Specimen Blood Performing Organization Address City/[facility] [address]/ZIP Code Phon e Number [facility] Unless otherwise noted, [address] all lab tests performed by: Division of Pathology and Laboratory Medicine [address] [place] [address] [place] TMP Interpretation Antibody Screen Negative (11/11/2020 2:29 PM CDT)Only the most recent of2 resultswithin the time period is included. TMP Auto Neg ABSC At the present time, patien t plasma shows no evidence of RBC alloantibodies. [facility] Interp Comment: CANCER CENTER JANETT BROWNLEE, Dictated by: JANETT BROWNLEE, Dictated Date/Time: 11.12.19 16:29 PM CDT Transcribed Date/Time: 11.11.2020 16:29 PM CDT Electronically Signed By: JANETT BROWNLEE, on 021 16:29 PM Specimen Blood Performing Organization Address City/State/ZIP Code Phon e Number [facility] Unless otherwise noted, [address] all lab tests performed by: Division of Pathology and Laboratory Medicine [address] [place] [address] [place] ABORh (11/11/2020 2:29 PM CDT)Only the most recent of2 resultswithin the time period is included. Pathologist Sig katie ABORh. B POS [facility] Specimen Blood Performing Organization Address City/State/ZIP Code Phon e Number [facility] Unless otherwise noted, [address] all lab tests performed by: Division of Pathology and Laboratory Medicine [address] [place] [address] [place] Antibody Screen (11/11/2020 2:29 PM CDT)Only the most recent of2 resultswithin the time period is included. Pathologist Sig nature ABSC. Negative ABSC [facility] C[facility] R Specimen Blood Performing Organization Address City/[facility] [address]/ZIP [facility] Phon e Number [facility] Unless otherwise noted, [address] all lab tests performed by: Division of Pathology and Laboratory Medicine [address] [facility] COVID-19 (SARS-CoV-2) PCR-Asymptomatic [facility] (11/10/2020 12:00 PM CDT)Only the most recent of2 resultswithin the time period is included. COVID19 (SARS Not Detected Not Detected [facility] CoV-2) Result Comment: [facility] This test is a qualitative r everse-transcriptase polymerase chain reaction (RT- PCR) developed for the Ese AMANUEL 6800 system and intended for the detection of SARS CoV-2 RNA in human nasopharyngeal specimens from patients who meet COVID- 19 clinical and/or epidemiological crite roxann. This assay has been approved by the FDA for use only under Emergency Use Authorization (EUA) in laboratories that have been CLIA-certified to perform moderate-complexity and high-complexity tests. The performance characteristics of this assa y were verified by the Microbiology Laboratory at [facility], CLIA Accreditation #: [id number] and CAP Accreditation #: [id number]. Results must be interpreted within the context of all relevant clinical and laboratory findings and shou ld not form the sole basis for a diagnosis or treatment decision. "Presumptive Positive" resul ts are due to partial amplification of SARS-CoV-2 targets and indicates low amounts of virus present in the specimen at or near the limit of detection. Regardless, individuals with "Presumptive Positive" results should be managed per institutional gu idelines as individuals positive for SARS-CoV-2 virus, including use of appropriate infection control protocols. Internal controls are includ ed to assess for possible amplification inhibitors. If inhibition is detected, testing is repeated and if inhibition is confirmed the specimen is resulted as "Invalid". When an "Invalid" result occur, it is recommended to wait 3 days before submitting a new specimen for coby ting if clinically indicated. COVID19 SARS [employer] ADMINISTRATOR Swab [facility] Source CANCER CENTER COVID19 SARS Pre-OR Procedure [facility] Indication CANCER CENTER Specimen Nasopharyngeal Swab Performing Organization Address City/State/ZIP Code Phon e Number [facility] Unless otherwise noted, [place] [address] CENTER all lab tests performed by: Division of Pathology and Laboratory Medicine [facility] CT Chest Abdomen Pelvis with Contrast (11/03/2020 6:13 PM CDT) Specimen Impressions [id number] - 11/04/2020 8:14 AM CDT 1. Biopsy-proven endometrial cancer as d escribed above. Subcentimeter bilateral iliac lymph nodes. 2. Incidental findings as described abov e without evidence of visceral metastasis within the abdomen and pelvis. 3. Bilateral, multiple, subcentimeter naomi ng nodules may be monitored on follow-up examination. Narrative [id number] - 11/04/2020 8:14 AM CDT FULL RESULT: Examination: CT CHEST ABDOMEN PELVIS W C ONTRAST, 11/03/2020 6:13 PM Clinical History: Malignant neoplasm of endometrium Essential hypertension Former heavy tobacco smoker Indication: Initial staging, Endometrial cancer, primary, Negative COVID-19 Test Result Comparison: None Technique: CT of the chest, abdomen, and pelvis was performed with intravenous contrast. Findings: CT thorax: Bilateral subsegmental atelectasis and u pper lobe emphysematous changes without lung mass or consolidation. Scattered, subcentimeter, bilateral, multiple lung nodules (series 4, image 31, 34, 35, 57, 59 , 78) may be monitored on follow-up exam ination. No significant mediastinal, hilar or axillary lymphadenopathy. Atherosclerotic changes of the aorta and its branches. The heart and great vessels are nor mal. No pleural or pericardial effusion. Bilobar hypoattenuating thyroid lesions seen. The trachea and bilateral major airways are unremarkable. Multilevel degenerative changes of the visualized axial skeleton. CT abdomen and pelvis: The patient has biopsy-proven endometria l cancer. The uterus measures 8.2 x 4 cm. Heterogeneously enhancing endometrium measures 1.7 cm in thickness. A 2.6 x 1.9 cm enhancing, expansile endometrial mass seen (series 3, image 257). Bilateral o varies are unremarkable. There is no solid adnexal mass. Subcentimeter bilateral iliac lymph nodes including a 8 mm short axis left deep external iliac lymph node (series 3, image 259). There is no asci coby. There is no significant retroperitoneal or mesenteric lymphadenopathy. The liver, gallbladder, pancreas, right adrenal and the spleen are normal. Diffuse left adrenal hyperplasia. Bilateral kidneys show multifocal scarring and atrophy. Nonobstructive left nephrolithiasis. A 2.2 x 1.6 cm perigastric cystic lesion (series 3, image 160) likely represents a lymphangioma. The stomach and small bowel loops are normal. Incidental colonic diverticulosis. The urinary bladder is n ormal. Atherosclerotic changes of the ab dominal aorta and its branches. Multilevel degenerative changes of the visualized axial skeleton. Procedure Note Pasha Pal MD - 11/04/2020 FULL RESULT: Examination: CT CHEST ABDOMEN PELVIS W C ONTRAST, 11/03/2020 6:13 PM Clinical History: Malignant neoplasm of endometrium Essential hypertension Former heavy tobacco smoker Indication: Initial staging, Endometrial cancer, primary, Negative COVID-19 Test Result Comparison: None Technique: CT of the chest, abdomen, and pelvis was performed with intravenous contrast. Findings: CT thorax: Bilateral subsegmental atelectasis and u pper lobe emphysematous changes without lung mass or consolidation. Scattered, subcentimeter, bilateral, multiple lung nodules (series 4, image 31, 34, 35, 57, 59, 78) may be monitored on follow-up examination. No s ignificant mediastinal, hilar or axillary lymphadenopathy. Atherosclerotic changes of the aorta and its branches. The heart and great vessels are normal. No pleural or pericardial effusion. Bilobar hypoattenu ating thyroid lesions seen. The trachea and bilateral major airways are unremarkable. Multilevel degenerative changes of the visualized axial skeleton. CT abdomen and pelvis: The patient has biopsy-proven endometria l cancer. The uterus measures 8.2 x 4 cm. Heterogeneously enhancing endometrium measures 1.7 cm in thickness. A 2.6 x 1.9 cm enhancing, expansile endometrial mass seen (series 3, image 257). Bilateral ovaries are unremarkable. There is no solid adnexal mass. Subcentimeter bilateral iliac lymph nodes including a 8 mm short axis left deep external iliac lymph node (series 3, image 259). There is no ascites. There is no signifi cant retroperitoneal or mesenteric lymphadenopathy. The liver, gallbladder, pancreas, right adrenal and the spleen are normal. Diffuse left adrenal hyperplasia. Bilateral kidneys show multifocal scarring and atrophy. Nonobstructive left nephrolithiasis. A 2.2 x 1.6 cm perigastric cystic lesion (series 3, cherise ge 160) likely represents a lymphangioma. The stomach and small bowel loops are normal. Incidental colonic diverticulosis. The urinary bladder is normal. Atherosclerotic changes of the abdominal aorta and its b ranches. Multilevel degenerative changes of the visualized axial skeleton. IMPRESSION: 1. Biopsy-proven endometrial cancer as d escribed above. Subcentimeter bilateral iliac lymph nodes. 2. Incidental findings as described abov e without evidence of visceral metastasis within the abdomen and pelvis. 3. Bilateral, multiple, subcentimeter naomi ng nodules may be monitored on follow-up examination. Performing Organization Address City/State/ZIP Code Phon e Number [id number] Confirm ABORh (10/31/2020 10:59 AM CDT) Pathologist Sig nature ABORh Confirm. B POS [facility] Specimen Blood Performing Organization Address City/State/ZIP Code Phon e Number [facility] Unless otherwise noted, [place] [address] KILKENNY all lab tests performed by: Division of Pathology and Laboratory Medicine [address] (ABNORMAL) Urinalysis with Microscopic (10/31/2020 10:57 AM CDT) Pathologist Sig nature UA WBC 0-2Comment: All 0 - 2 /HPF [facility] [place] components of UA Microscopic Exam performed at [facility], [address] [place] [address] UA RBC NOT SEENComment: As 0 - 2 /HPF [facility] [place] part of the UA Microscopic Exam performed at [facility], [address] [place] [address] UA Mucous TRACEComment: As part Not Seen-Trace [facility] [place] of the UA Microscopic /HPF Exam performed at [facility], [address] [place] [address] UA Bacteria OCCComment: As part of NOT SEEN /HPF [facility] [place] the UA Microscopic Exam performed at [facility], [address] [place] [address] UA Squam Epi OCCComment: As part of None-Occasional [facility] [place] the UA Microscopic /HPF Exam performed at [facility], [address] [place] [address] UA Trans Epi OCC (A)Comment: As NOT SEEN /HPF [facility] [place] part of the UA Microscopic Exam performed at [facility], [address] [place] [address] UA Hyal Cast 0-2Comment: As part of 0 - 2 /LPF [facility] [place] the UA Microscopic Exam performed at [facility], [address] [place] [address] Specimen Urine Narrative BUBBA JENKINS - 10/31/2020 11:29 AM CDT Some reporting parameters within the Urinalysis test have changed due to the implementation of new instrumentation in the [facility], allowing greater sensitivity of measurement. Urinalysis results rep orted by the [facility] using existing instrumentation, as well as Urinalysis t esting performed manually or by backup methodology at the [facility] will remain relatively unchanged. New reporting parameters and units will now be reported for all campuses. Performing Organization Address City/State/ZIP Code Phon e Number [facility] [place] [id number] [place] [address] (ABNORMAL) Urinalysis with Microscopic (10/31/2020 10:57 AM CDT) UA Color Light YellowComment: Straw-Yellow [facility] All components of UA Macroscopic performed at [facility], [address] [place] [address] UA Appear ClearComment: As part Clear [facility] [place] of the UA Macroscopic performed at [facility], [address] [place] [address] UA Glucose NEGComment: As part NEG mg/dL [facility] [place] of the UA Macroscopic performed at [facility], [address] [place] [address] UA Bili NEGComment: As part NEG [facility] [place] of the UA Macroscopic performed at [facility], [address] [place] [address] UA Ketones NEGComment: As part NEG mg/dL [facility] [place] of UA Macroscopic or as an individual orderable testing performed at [facility], [address] [place] [address] UA Spec Grav 1.004Comment: As part 1.003 - 1.035 [facility] [place] of UA Macroscopic or as an individual orderable testing performed at [facility], [address] [place] [address] UA Blood NEGComment: As part NEG [facility] [place] of the UA Macroscopic performed at [facility], [address] [place], [place] [id number] UA pH 5.0Comment: As part 5.0 - 9.0 [facility] [place] of UA Macroscopic or as an individual orderable testing performed at [facility], [address] [place] [address] UA Protein NEGComment: As part NEG mg/dL [facility] [place] of the UA Macroscopic performed at [facility], [address] [place] [address] UA Urobilinogen NEGComment: As part NEG [facility] [place] of the UA Macroscopic performed at [facility], [address] [place] [address] UA Nitrite NEGComment: As part NEG [facility] [place] of the UA Macroscopic performed at [facility], [address] [place] [address] UA Leuk Est Trace (A)Comment: As NEG [facility] [place] part of the UA Macroscopic performed at [facility], [address] [place] [address] Specimen Urine Performing Organization Address City/[facility] [address]/[facility] Phon e Number [address] (ABNORMAL) Urine Culture (10/31/2020 10:57 AM CDT) Final Report <10,000 cfu/ml Normal site samia present. [facility] Generally of low significance. [facility] Correlate with clinical data and culture history. (A) Path Review - The results have been review ed and electronically signed by Pathologist: [facility] Urine LILI BARBOZA MD #[id number] [facility] R (A) Specimen Urine, Clean Catch Performing Organization Address City/[facility] [address]/[facility] Phon e Number [facility] Unless otherwise noted, [place] [address] KILKENNY all lab tests performed by: Division of Pathology and Laboratory Medicine Marisol Carroll Hepatitis C Virus Ab Screen, Reflex HCV PCR (10/31/2020 10:47 AM CDT) HCV Ab Screen-Imlay Negative Negative [facility] Comment: [facility] Esibuo-zg-ergopp ratio is <1.00. Test Performed by: [facility] [address] [place] [address] Business Applications Specialist: Rolando Cain M.D. Ph.D.; CLIA# [id number] Specimen Blood Performing Organization Address City/State/ZIP Code Phon e Number [facility] Unless otherwise noted, [place] [address] CENTER all lab tests performed by: Division of Pathology and Laboratory Medicine [address] [place] [address] HIV 1/2 Ag&Ab Path Interp (10/31/2020 10:47 AM CDT) [facility] HIV 1/2 Ag&Ab Negative for HIV-1 antigen a nd HIV-1/HIV-2 antibodies. No laboratory evidence of HIV infection. If acute HIV infection is suspected, consider testing for HIV-1 RNA. [facility] Interp Comment: CENTER ROD NEVAREZ MD - [id number] Dictated by: MD Ana Lilia [place] [id number] Dictated Date/Time: 11.02.19 8:58 AM CDT Transcribed Date/Time: 11.01.2020 8:58 AM CDT Electronically Signed By: ROD NEVAREZ MD - [phone] on 11.01.2020 8:58 AM C Specimen Blood Performing Organization Address City/[facility] [address]/[facility] Phon e Number [facility] DONOR [address] [address] HIV-1/2 Antigen and Antibodies, Fourth Generation (10/31/2020 10:47 AM CDT) [facility] HIV 1/2 Ag & Ab, Non Reactive Non Reactive [facility] 4th Gen Comment: CENTER Performed at: [facility] [address] [place] [id number] Specimen Blood Performing Organization Address City/[facility] [address]/ZIP [facility] Phon e Number [facility] [address] [address] TMP Interpretation Exception PreOp Expiration (10/31/2020 10:47 AM CDT) [facility] TMP Exception This patient does not quali fy for a 30 day preoperative type and screen extension due to presence of known RBC alloantibody, possible recent exposure to blood or blood-derived products, or incomplete i [facility] nformation submitted from the preoperative clinic. [facility] A new type and screen should be drawn within 72 hours of the procedure if blood needs are anticipated. Delays in blood availability are possible if the sample is drawn immediately prior to surgery. Comment: MD Ana Lilia MIDDLETON78 Dictated by: MD Ana Lilia MIDDLE[place] Dictated Date/Time: 11.05.19 10:22 AM CDT Transcribed Date/Time: 11.04.2020 10:22 AM CDT Electronically Signed By: MD Ana Lilia MIDDLETON on 11.04.2020 10:22 AM Specimen Blood Performing Organization Address City/[facility] [address]/[facility] Phon e Number [facility] Unless otherwise noted, [place] [address] KILKENNY all lab tests performed by: Division of Pathology and Laboratory Medicine [address] [place] [address] Fractionated Bilirubin (10/31/2020 10:47 AM CDT) Bili Total 0.5 <=1.2 mg/dL [facility] Comment: Indocyanine Green (ICG) may cause falsely elevated bilirubin results. Total and direct bilirubin must not be measured from samples containing indocyanine green. False elevation of total shaw irubin can be seen in patients with IgG concentrations above 28 g/L. Testing performed at [facility], [address] [place] [address] Bili Direct 0.2 <=0.3 mg/dL [facility] Comment: Indocyanine Green (ICG) may cause falsely elevated bilirubin results. Total and direct bilirubin must not be measured from samples containing indocyanine green. Testing performed at [facility], [address] [place] [address] Bili Indirect 0.3Comment: Testing 0.0 - 0.9 [facility] performed at [facility], [address] [place] [address] Specimen Blood Performing Organization Address City/[facility] [address]/[facility] [place] [address] [place] [address] Hepatitis C Virus Antibody (10/31/2020 10:47 AM CDT) Pathologist Sig katie HCVAb Received See NoteComment: [facility] HCVAb was sent to a CANCER CENTER reference lab for testing. Expect results on Hepatitis C Virus Ab Screen w/Reflex HCV PCR within 96 hours. Specimen Blood Performing Organization Address City/[facility] [address]/ZIP Code Phon e Number [facility] Unless otherwise noted, [place] [address] KILKENNY all lab tests performed by: Division of Pathology and Laboratory Medicine [address] [facility] [place] 125 (10/31/2020 10:47 AM CDT) Pathologist Sig [facility] [place] 125 15.5 <=38.0 U/mL [facility] Comment: Results greater than 11,500. 0 U/L may not be reliable due to matrix effect with extended dilution as it exceeds the cutter down s recommended limit. Caution should be exercised when interpreting such values and done in conjunction with clinical context. Reference intervals are not available for male patients. Results should be interpreted in conjunction with clinical context. Testing performed at [facility], [address] [place] [address] Specimen Blood Performing Organization Address [facility] Phon e Number [facility] [place] [phone] [address] [place] [address] (ABNORMAL) ALT (10/31/2020 10:47 AM CDT) Pathologist Sig [facility] ALT 34 (H)Comment: Testing <=33 U/L [facility] performed at [facility], [address] [place] [address] Specimen Blood Performing Organization Address City/[facility] [address]/ZIP [facility] Phon e Number [place], [place] [address] [place] [address] (ABNORMAL) Aspartate Aminotransferase (10/31/2020 10:47 AM CDT) Pathologist Sig [facility] AST 56 (H)Comment: Testing <=32 U/L [facility] performed at [facility], [address] [place] [address] Specimen Blood Performing Organization Address City/[facility] [address]/ZIP Code Phon e Number RCC [address] Total Protein (10/31/2020 10:47 AM CDT) Pathologist Sig nature Total Protein 6.9Comment: Testing 6.4 - 8.3 g/dL [facility] performed at [facility], [address] [place] [address] Specimen Blood Performing Organization Address City/[facility] [address]/[facility] Code Phon e Number [place] [phone] [address] [place] [address] Alkaline Phosphatase (10/31/2020 10:47 AM CDT) Pathologist Sig nature Alk Phos 87Comment: Testing 35 - 104 U/L [facility] performed at [facility], [address] [place] [address] Specimen Blood Performing Organization Address City/[facility] [address]/[facility] Phon e Number [place] [phone] [address] [place] [address] Hemoglobin A1c (10/31/2020 10:47 AM CDT) Pathologist Sig nature A1C 5.2 4.3 - 5.6 % [facility] Comment: HbA1c values >=6.5% are diagnostic of diabetes mellitu s. Diagnosis should be confirmed by repeat testing. Therapeutic Action suggested: >8.0% HbA1c; Goal of therapy: <7.0% HbA1c Testing Performed at [facility], [address] [place] [address] Specimen Blood Performing Organization Address City/[facility] [address]/ZIP Code Phon e Number [facility] [place] [phone] [place] [address] Albumin Level (10/31/2020 10:47 AM CDT) Pathologist Sig nature Albumin Lvl 4.6Comment: Testing 3.5 - 5.2 gm/dL [facility] performed at [facility], [address] [place], [place] [address] Specimen Blood Performing Organization Address City/[facility] [address]/ZIP Code Phon e Number [place] [phone] [place] [address] EKG, 12-Lead (Scheduled) (10/31/2020) Specimen Narrative This result has an attachment that is no t available. Performing Organization Address City/State/ZIP Code Phon e Number ZANA IECG after 06/24/2020 Insurance Payer Benefit Plan Subscriber ID Effective Phone Address Typ e / Group Dates MEDICARE MEDICARE PART [id number] 2006-Prese [phone] [place] Medicare A AND B nt 82 SOLUTIONS [address] [place] [phone] [employer] [place] P[place] [id number] 2020-Prese [address] PPO [place] POS [place] 6[address] [place] [address] Advance Directives Code Status Date Activated Date Inactivated Comments Full Code 11/11/2020 9:48 PM 11/12/2020 3:54 PM Care Teams Manager Contracting Relationship Specialty Start Date End Date Gabriel Escobar MD PCP - General Gynecological Oncology 10/05/[address] [place] [id number] Claudia Garibay PCP - External Obstetrics/Gynecology 10/05/20 MD Mushtaq Referring [address] [address]
--- OUTSIDE RECORDS SUMMARY | 2021-06-24 11:47 | XMS REPORT | Continuity of Care Document ---
:1940 Author Organization [facility] t Address [address] [place] [address] Care Team Providers Name Role Phone [phone] Primary Care Physician Unavailable SYSTEM, NOT IN Attending Clinician Unavailable Morteza Garibay Attending Clinician Unavailable BEV Attending Clinician Unavailable Kaden VIZCAINO Attending Clinician KADEN Attending Clinician Unavailable Ashley IBARRA, L Attending Clinician Danuta BETH Attending Clinician Alexandre BAKER, B. Attending Clinician Henry VIZCAINO Attending Clinician HENRY Attending Clinician Unavailable Sage VIZCAINO Attending Clinician Escobar CANO Attending Clinician DANUTA Attending Clinician Unavailable Jules IBARRA Attending Clinician Unavailable Jair BAKER, M Attending Clinician Mukul VIZCAINO Attending Clinician Darnell TAYLOR M Attending Clinician Brandon VIZCAINO Attending Clinician Leola GODINEZ Attending Clinician Only, Test Attending Clinician Unavailable Kathe VIZCAINO Attending Clinician Doctor Unassigned, Name Attending Clinician Unavailable KAVEH Attending Clinician Unavailable HENRY Admitting Clinician Unavailable Payers Payer Name Policy Type Policy Effective Date Expiration Date Sour ce Number MEDICAREMEDICARE PART [id number] 2006 MD Manuel Griffiths AND 00:00:00 [id number]-P [id number] TAS [address] [place] [id number] BLUE CROSS BLUE [id number] 2020 MD Charles charity [employer] [place] PPO 9 00:00:00 [id number] 0-PresentPO [address], [place] [address]ILL Problems Condition Condition Condition Status Onset Resolution Last Treating Co mments Source Name Details Category Date Date Treatment Clinician Date Former Former Disease Active Overview: heavy heavy 5-25 Formattin Anderso tobacco tobacco 00:00: g of this n smoker smoker 00 note might be different from the original. Added automatic ally from request for surgery [id number] Malignant Malignant Disease Active Last neoplasm neoplasm 5-23 Assessmen And erso of of 00:00: t & Plan: n endometriu endometriu 00 Formattin m m g of this note might be different from the original. Dr. Alfonso has recommend ed that the patient undergo the following surgical procedure : Robotic-a ssisted total laparosco pic hysterect torin with bilateral salpingo- oophorect torin and sentinel lymph node mapping/b iopsy. Risks, benefits, and alternati ves have been discussed with the patient. The patient has gone through our preoperat davie teaching with the care team. Specifica lly, risks included but not limited to bleeding, infection , poor wound healing, hernia formation , damage to internal organs such as bowel, nerves, blood vessels, bladder, ureter, need for reoperati on, conversio n to open surgery, complicat ions related to trochar insertion , need for prolonged hospitali zation or ICU stay, need for blood transfusi on, . The patient has been consented for the above surgical procedure as well as for possible blood transfusi on. We have discussed the risks of blood transfusi on include but are not limited to infection with HIV, hepatitis B or C, allergic reactions , risks of damage to the kidney or heart with rare but serious blood transfusi on reactions . Informati on regarding carbohydr ate loading has been discussed with the patient.Bonnie caldera also discussed with the patient signs and symptoms to look out for after she goes home. We have explained that in general, she should be the same or better with each passing day. We have asked her to ambulate 8 times a day and to attempt to be out of bed for 8 hours a day and to eat all meals in a chair. Should the patient develop any worsening abdominal pain, nausea vomiting, difficult y eating or drinking, difficult y urinating , confusion , or any other worrisome symptoms, she should call immediate ly and present to the nearest emergency center for evaluatio n. She verbalize mt judd and all her questions have been answered. 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 07-07 Luigi o disease disease 00:00: n involving involving 00 multiple multiple joints joints Essential Essential Disease Active 2015-06 hypertensi hypertensi 07-07 Debora mendez on on 00:00: n 00 Palmar Palmar Disease Active 2015-06 Univers fasciitis fasciitis 07-07 ity of 00:00: [address] Branch Allergies, Adverse Reactions, Alerts Allergy Allergy Status Severity Reaction(s) Onset Inactive Treating Comm ents Source Name Type Date Date Clinician No Known DA Active [facility] 4[facility]20 [facility] d [facility] No Known DA Active [facility] All[facility]ie 4-20 [place] [facility] 00:[facility]: d [facility] NO KNOWN Drug Active Univers ALLERGIE Class ity of S [facility] Social History Social Habit Start Date Stop Date Quantity Comments Source Alcohol Comment 2 glasses of Univers ity of wine per night [facility] History of tobacco Current smoker MD Jackson use Alcohol intake 2020-12-26 2020-12-26 Current drinker MD Debora louis 00:00:00 00:00:00 of alcohol (finding) Cigarettes smoked 2020-10-31 2020-10-31 MD Darion de current (pack per 00:00:00 00:00:00 day) - Reported Tobacco use and 2020-10-31 2020-10-31 Smokeless MD Meyers on exposure 00:00:00 00:00:00 tobacco non-user Cigarette 2016-05-07 2016-05-07 University of pack-years 00:00:00 00:00:00 [facility] Sex Ass[birth year] At [birth year] MD Meyers on 00:00:00 00:00:00 Smoking Status Start Date Stop Date Source Ex-smoker 2020-10-31 00:00:00 2020-10-31 00:00:00 MD Charles son Current every day 2016-05-07 00:00:00 [facility] Medications Ordered Filled Start Stop Current Ordering Indication Dosage Frequency Signature Comments Components Source Medication Medication Date Date Medication? Clinician (SIG) Name Name awa Yes Malignant 1{tbl} Take 1 MD ate 11-12 neoplasm of tablet by And erso (Senokot-S) 00:00: endometrium mouth n 8.6 mg-50 00 twice mg tablet daily. acetaminoph 2020- No Malignant 500mg Take 1 MD en (Tylenol 11-12 neoplasm of tablet Anderso Extra 00:00: 00:00 endometrium (500 mg) n Strength) 00 :00 by mouth 500 mg every 6 tablet (six) hours. ibuprofen No Malignant 600mg Take 1 MD (ADVIL,MOTR 11-12 neoplasm of tablet Anderso IN) 600 mg 00:00: 00:00 endometrium (600 mg) n tablet 00 :00 by mouth 3 (three) times a day with meals. oxyCODONE 2020- No Malignant 5mg Take 1 MD (Roxicodone 6-05 07-19 neoplasm of tablet (5 Anderso ) 5 mg 00:00: 00:00 endometrium mg) by n immediate 00 :00 mouth release every 6 tablet (six) hours as needed for severe pain. aspirin 81 No 81mg Take 81 mg MD mg EC 527 05-27 by mouth Anderso tablet 13:47: 00:00 daily. n 56 :00 hydroCHLORO 0 Yes daily. MD thiazide 5-18 Anderso (HYDRODIURI 00:00: n L) 25 mg 00 tablet ipratropium Yes 3 (three) M D (ATROVENT) 4-19 times a Luigi o 42 mcg 00:00: day. n (0.06 %) 00 nasal spray losartan Yes 50mg Take 50 mg MD (COZAAR) 50 8-15 by mouth Darion rso mg tablet 00:00: daily. n 00 atenolol Yes 50mg Take 50 mg MD (TENORMIN) 8-07 by mouth Melvin so 50 mg 00:00: twice n tablet 00 daily. pantoprazol Yes 40mg Take 40 mg MD e 8-07 by mouth Anderso (PROTONIX) 00:00: every n 40 mg EC 00 other day. tablet atenolol 2015-06 Yes 50mg Take 50 mg Uni vers (TENORMIN) 1-28 by mouth 2 ity of 50 mg 22:31: (two) [place] tablet 55 times Medical daily. Branch lisinopril- 2015-06 Yes 1{tbl} Take 1 Un roger hydrochloro 1-28 tablet by ity of thiazide 22:31: mouth 2 [place] (PRINZIDE,Z 55 (two) Medical ESTORETIC) times Branch 20-12.5 mg daily. per tablet atenolol 2015-06 Yes 50mg Take 50 mg Uni vers (TENORMIN) 1-28 by mouth 2 ity of 50 mg 22:31: (two) [place] tablet 55 times Medical daily. Branch lisinopril- 2015-06 Yes 1{tbl} Take 1 Un roger hydrochloro 1-28 tablet by ity of thiazide 22:31: mouth 2 [place] (PRINZIDE,Z 55 (two) Medical ESTORETIC) times Branch 20-12.5 mg daily. per tablet meloxicam 2015-06 Yes 7.5mg Take 1 Unive rs (MOBIC) 7.5 1-28 tablet by ity of mg tablet 00:00: mouth [place] 00 daily. Medical Branch meloxicam 2015-06 Yes 7.5mg Take 1 Unive rs (MOBIC) 7.5 1-28 tablet by ity of mg tablet 00:00: mouth [place] 00 daily. Medical Branch Vital Signs Vital Name Observation Time Observation Value Comments Source HEIGHT 2020-11-11 22:10:00 154 cm WEIGHT 2020-11-11 22:10:00 62.6 kg HEIGHT 2020-11-11 22:10:00 154 cm WEIGHT 2020-11-11 22:10:00 62.6 kg WEIGHT 2020-11-10 12:28:00 62.2 kg WEIGHT 2020-11-10 12:28:00 62.2 kg Systolic blood pressure 2020-12-26 15:03:00 154 mm[Hg] MD Jackson Diastolic blood pressure 2020-12-26 15:03:00 75 mm[Hg] MD Jackson Heart rate 2020-12-26 15:03:00 71 /min MD Melvin nash Body temperature 2020-12-26 15:03:00 37 Angela MD Tunde morocho Respiratory rate 2020-12-26 15:03:00 18 /min MD Tunde morocho Body weight 2020-12-26 15:03:00 61.1 kg MD Melvin nash BMI 2020-12-26 15:03:00 25.76 kg/m2 MD Melvin nash Oxygen saturation in 2020-11-12 16:39:53 97 /min MD Jackson Arterial blood by Pulse oximetry Body height 2020-11-12 03:10:00 154 cm MD Melvin nash Procedures Procedure Date / Time Performing Clinician Source Performed COMPLETE BLOOD COUNT W/ 2020-11-12 16:06:00 Eyal Tatum MD BASIC METABOLIC PANEL, 2020-11-12 16:06:00 Pro Tatum MD CALCIUM TOTAL Bravo GLUCOSE LEVEL 2020-11-12 16:06:00 Pro Tatum BLOOD UREA NITROGEN 2020-11-12 16:06:00 Pro Tatum MD ELECTROLYTE PANEL 2020-11-12 16:06:00 Pro Tatum MD SERUM CREATININE 2020-11-12 16:06:00 Pro Tatum MD .GLOMERULAR FILTRATION 2020-11-12 16:06:00 Pro Tatum MD RATE Bravo CALCIUM LEVEL TOTAL 2020-11-12 16:06:00 Pro Tatum MD COMPLETE BLOOD COUNT W/ 2020-11-12 05:32:00 Rashida Steele MD DIFFERENTIAL SODIUM LEVEL 2020-11-12 05:32:00 Rashida Steele MD CARBON DIOXIDE LEVEL 2020-11-12 05:32:00 Rashida Steele MD rson CHLORIDE LEVEL 2020-11-12 05:32:00 Rashida Steele MD POTASSIUM LEVEL 2020-11-12 05:32:00 Rashida Steele MD MAGNESIUM LEVEL 2020-11-12 05:32:00 SteeleRashida pearl MD BLOOD UREA NITROGEN 2020-11-12 05:32:00 Cedric, Rashida nash SERUM CREATININE 2020-11-12 05:32:00 Rashida Steele MD GLUCOSE, RANDOM 2020-11-12 05:32:00 Rashida Steele MD Results CBC 2020-11-12 05:32:00 More Covarrubias MD MANUAL DIFFERENTIAL 2020-11-12 05:32:00 More Covarrubias MD SERUM CREATININE 2020-11-12 05:32:00 More Covarrubias MD .GLOMERULAR FILTRATION 2020-11-12 05:32:00 More Covarrubias MD RATE ANION GAP 2020-11-12 05:32:00 More Covarrubias MD COMPLETE BLOOD COUNT W/ 2020-11-12 02:38:00 Rashida Steele MD DIFFERENTIAL APTT 2020-11-12 02:38:00 Rashida Steele MD PROTHROMBIN TIME 2020-11-12 02:38:00 Rashida Steele MD Results CBC 2020-11-12 02:38:00 More Covarrubias MD MANUAL DIFFERENTIAL 2020-11-12 02:38:00 More Covarrubias MD Melvin son PATHOLOGY SURGICAL 2020-11-11 22:11:00 Gabriel Alfonso MD on INTERPRETATION ROBOTIC ASSISTED TOTAL 2020-11-11 19:52:00 Gabriel Alfonso MD derson HYSTERECTOMY ROBOTIC ASSISTED 2020-11-11 19:52:00 Gabriel Alfonso MD SALPINGO-OOPHORECTOMY INTRAOPERATIVE LYMPHATIC 2020-11-11 19:52:00 Gabriel Alfonso MD MAPPING LIMITED LYMPHADENECTOMY 2020-11-11 19:52:00 Gabriel Alfonso MD FOR STAGING; PELVIC AND PARA-AORTIC LYMPH NODES TYPE AND SCREEN 2020-11-11 19:29:00 Maryuri Bradshaw MD ABORH 2020-11-11 19:29:00 Maryuri Bradshaw MD ANTIBODY SCREEN 2020-11-11 19:29:00 Maryuri Bradshaw MD CLOT EXPIRATION DATE 2020-11-11 19:29:00 Maryuri Bradshawe rson TMP INTERPRETATION 2020-11-11 19:29:00 Maryuri Bradshaw MD on ANTIBODY SCREEN NEGATIVE COVID-19 (SARS-COV-2) 2020-11-10 17:00:00 Darnell Vicente MD And severianoon PCR-ASYMPTOMATIC MC CT CHEST ABDOMEN PELVIS W 2020-11-03 23:13:40 Maryuri Bradshaw MD CONTRAST CONFIRM ABORH TYPE 2020-10-31 15:59:05 Maryuri Bradshaw MD on URINE CULTURE 2020-10-31 15:57:47 Maryuri Bradshaw MD URINALYSIS WITH 2020-10-31 15:57:47 Maryuri Bradshaw MD MICROSCOPIC IF INDICATED URINALYSIS MICROSCOPIC 2020-10-31 15:57:47 Maryuri Bradshaw MD COMPLETE BLOOD COUNT W/ 2020-10-31 15:47:00 Maryuri Bradshaw MD DIFFERENTIAL COMPREHENSIVE METABOLIC 2020-10-31 15:47:00 Maryuri Bradshaw MD PANEL CANCER ANTIGEN 125 2020-10-31 15:47:00 Maryuri Bradshaw MD on PROTHROMBIN TIME 2020-10-31 15:47:00 Maryuri Bradshaw MD APTT 2020-10-31 15:47:00 Maryuri Bradshaw MD TYPE AND SCREEN 2020-10-31 15:47:00 Maryuri Bradshaw MD HEPATITIS C VIRUS ANTIBODY 2020-10-31 15:47:00 Maryuri Bradshaw HC HIV 1/2 AG AND AB 4TH 2020-10-31 15:47:00 Maryuri Bradshaw MD GEN HEMOGLOBIN A1C 2020-10-31 15:47:00 Maryuri Bradshaw MD Results CBC 2020-10-31 15:47:00 Maryuri Bradshaw MD MANUAL DIFFERENTIAL 2020-10-31 15:47:00 Maryuri Bradshaw MD GLUCOSE LEVEL 2020-10-31 15:47:00 Maryuri Bradshaw MD BLOOD UREA NITROGEN 2020-10-31 15:47:00 Maryuri Bradshaw MD ELECTROLYTE PANEL 2020-10-31 15:47:00 Maryuri Bradshaw MD n SERUM CREATININE 2020-10-31 15:47:00 Maryuri Bradshaw MD .GLOMERULAR FILTRATION 2020-10-31 15:47:00 Maryuri Bradshaw MD RATE CALCIUM LEVEL TOTAL 2020-10-31 15:47:00 Maryuri Bradshaw MD ALBUMIN LEVEL 2020-10-31 15:47:00 Maryuri Bradshaw MD ALKALINE PHOSPHATASE 2020-10-31 15:47:00 Maryuri Bradshaw MD rson ALANINE AMINOTRANSFERASE 2020-10-31 15:47:00 Maryuri Bradshaw MD ASPARTATE AMINOTRANSFERASE 2020-10-31 15:47:00 Maryuri Bradshaw TOTAL PROTEIN 2020-10-31 15:47:00 Maryuri Bradshaw MD FRACTIONATED BILIRUBIN 2020-10-31 15:47:00 Maryuri Bradshaw MD derson ABORH 2020-10-31 15:47:00 Maryuri Bradshaw MD ANTIBODY SCREEN 2020-10-31 15:47:00 Maryuri Bradshaw MD HEPATITIS C VIRUS AB 2020-10-31 15:47:00 Unke, Maryuri MD Darion rson SCREEN W/REFLEX HCV PCR CLOT EXPIRATION DATE 2020-10-31 15:47:00 Maryuri Bradshaw MD Darion rson TMP INTERPRETATION 2020-10-31 15:47:00 Maryuri Bradshaw MD on ANTIBODY SCREEN NEGATIVE TMP HIV 1/2 AG&AB PATH 2020-10-31 15:47:00 Maryuri Bradshaw MD INTERP TMP INTERPRETATION 2020-10-31 15:47:00 Maryuri Bradshaw MD Luigi on EXCEPTION PREOP EXPIRATION EKG, 12-LEAD (SCHEDULED) 2020-10-31 00:00:00 Maryuri Bradshaw MD COVID-19 (SARS-COV-2) 2020-10-29 16:49:00 Gabriel Alfonso MD And satnam PCR-ASYMPTOMATIC MC ASSIGNMENT OF BENEFITS 2020-04-04 16:31:46 Doctor Unassigned, No [facility] Plan of Care Planned Activity Planned Date Details Comments Source Future Scheduled Test 1943 00:00:00 COVID-19 Vaccination MD Jackson (1) [code = COVID-19 Vaccination (1)] Encounters Start End Encounter Admission Attending Care Care Encounter Source Date/Time Date/Time Type Type Clinicians Facility Department ID 2020-12-20 Outpatient SYSTEM, [facility] [id number] 09:52:22 PROVIDER Luigi o n 2020-10-05 Outpatient SYSTEM, [facility] [id number] 15:14:58 PROVIDER Luigi o n 2020-09-29 [place]patient [place], HCAPM MADDY [id number] [facility] 14:30:00 Claudia [id number] [facility] 2020-09-27 Inpatient EL ANITA GaribayPM MADDY [id number] [facility] 13:00:00 Claudia [id number] [facility] 2021-06-16 2021-06-16 Outpatient [facility], [facility] [id number] [place] 00:00:00 00:00:00 [place] [address] 2021-06-16 2021-06-16 Outpatient [facility] [id number] [place] 00:00:00 00:00:00 [place] [address] 2021-06-16 2021-06-16 Outpatient PABLO, [facility] [id number] [place] 00:00:00 00:00:00 [place] [address] 2020-12-26 2020-12-26 Outpatient VINAYAK ALFONSO MDA MDA [id number] 09:57:18 09:57:18 GABRIEL campbell 2020-12-05 2020-12-05 Outpatient VINAYAK ALFONSO MDA MDA [id number] 11:37:31 11:37:31 GABRIEL campbell 2020-12-01 2020-12-01 Outpatient BEV, [facility] [id number] [place] 00:00:00 00:00:00 CLIFFORD 224 Method i 2020-12-01 2020-12-01 Outpatient BEV [facility] [id number] [place] 00:00:00 00:00:00 CLIFFORD 827 Method i 2020-11-11 2020-11-12 Inpatient VINAYAK COVARRUBIAS MDA ENTERER [id number] 11:43:00 13:49:00 MORE Oncology Melvin so adrian 2020-11-10 2020-11-10 Outpatient MARYURI LEACH MDA MDA [id number] 12:18:45 14:43:14 Luigi o adrian 2020-11-10 2020-11-10 Outpatient MARYURI LEACH MDA MDA [id number] 11:50:39 13:12:24 Luigi o adrian 2020-11-03 2020-11-03 Outpatient MARYURI LEACH MDA MDA [id number] 13:24:38 17:05:49 Luigi o adrian 2020-11-03 2020-11-03 Outpatient VINAYAK ALFONSO MDA MDA [id number] 13:16:00 16:58:36 GARBIEL Meyers o adrian 2020-11-03 2020-11-03 Outpatient KATY LEACHNA MDA MDA [id number] 15:17:01 15:17:01 Luigi o adrian 2020-10-31 2020-10-31 Outpatient KATY LEACHNA MDA MDA [id number] 10:59:29 11:16:37 Luigi o adrian 2020-10-31 2020-10-31 Outpatient MARYURI LEACH MDA MDA [id number] 10:11:38 10:54:03 Luigi campbell 2020-10-31 2020-10-31 Outpatient VINAYAK ALFONSO MDA MDA [id number] 08:13:36 08:27:20 GABRIEL Lovellseveriano campbell 2020-10-31 2020-10-31 Outpatient VINAYAK ALFONSO MDA MDA [id number] 08:17:05 08:17:05 GABRIEL campbell 2020-10-29 2020-10-29 Outpatient VINAYAK ALFONSO MDA MDA [id number] 11:41:54 12:36:53 GABRIEL campbell 2020-04-04 2020-04-04 Laboratory Only, [facility] Test [facility] 1.2.840. [id number] [facility] 11:30:52 11:45:52 Only Elpidio Archuleta [id number] ity [facility] [id number] [facility] [id number] [address] 2020-04-04 2020-04-04 Laboratory Only, [facility] 1.2.840.114 [id number] 11:30:52 11:45:52 Only Milo De La Cruz [id number] [place] [id number] [place] [id number] [facility] 2020-04-04 2020-04-[address] [facility] [id number] [facility] 11:45:00 11:45:00 [id number] ity [facility] [place] [facility] 2020-04-04 2020-04-[address] [facility] [id number] Univers 11:45:00 11:45:00 ity [facility] 2020-04-04 2020-04-04 Orders Doctor GARCIA 1.2.840.114 [id number] 00:00:00 00:00:00 Only Unassigned, GLADYS [id number] [place] [facility] [id number] 2020-04-04 2020-04-04 Orders Doctor GARCIA 1.2.840.114 [id number] Univers 00:00:00 00:00:00 Only Unassigned, GLADYS [id number] ity of [place] [facility] [id number] [facility] [id number] [place] [address] Branch 2020-01-22 2020-01-22 Outpatient MANUELAÁNGELA [facility] [id number] [place] 00:00:00 00:00:00 MARKIE [address] [facility] 2019-07-23 2019-07-23 Outpatient KAVEH [facility] [id number] [place] 00:00:00 00:00:[address] [facility] Results Test Description Test Time Test Comments Results Result Comments Source Pathology Surgical Interpretation 2020-11-23 21:28:02 Test Item Value Reference Range Interpretation Comme nts Submitted f5fgxBFfFZWrtPH1CZEmXGGsz9tld7OyyLFacQTsHNkhuCFuaeGucp74tUQ7kB46GP1hGDMkGcI3KOCs ksR9Xkk5DPVjXHLzzQKnG838d5nfm7lruqFblDK6tLzwIRVwwmmrUkX0QEjbPCFcrygeDOm8SPejGLFk lFD1ACHbcDPwW7AfEVKaZY0sqqi6BWN5ADiuBOLpWrC0GPSnjNH Clinical aDEXlqYoxUHkrh881KKP0TkSbXQNcboQitUruwE5uJuQmHFXYEKffZ05nmdNlguBiwRbar06ou5VfJW2 wf77gcXKfyR2lN2U9SN2bYMqmKPGvLU75lELdQDt0iKIviDQgr4yaddHkGFQpWIrkNk9elLXwAUdyNNG 3GNEmLjBzK22wp14sx0TbLNftMLrjXAykFPyhWJW5 History (test code = 23662) Diagnosis n1yjnCXoJFCpeDA9CGNoPPElz8sww0ImbGShuCWoXVsevGXdqhUqnr67gWE0fZ30SU3iAQYjArG8FAKs voU4Axg9QKCpZOGdlMXyG801w9aqc8bwtlDmmTU5FPXqPGU8UPyeluCsnyVpBmv6ATC3QLPyAVFlD8Qe GK4cYTTywTTrG75thRBhJMA7BVQdZYTouFMqXCNpJIO1CGHwbQT (test code pW1wiMFXyXJ8yghaxZCjoVLocEVYqwVY9TWJewXQoB2NgVFAhLZnyXAIubfi4VmZxDx4rlKGibWarWYr qAKPgXVNeFYuxNFVlGtJiVinlZuJzgMIcFMSoLeOfX7SmBOE5ABToxovdPcZlLOHkpFRcXaO2wdD4x8B ri8EweRneRWnxtUktkFzbue0gAZXrF2ExSB8gXVTvDYE1JURaWI = 34) SruXYpSGNeArXsZR7cXFOpeQ6esHMnk4VuCRLymxR8vR4giuXisaDuZX90WYfRWKHtZ99tgBYupIdfqW ZeTMIeTAmhBURjKcXISwvhTLPhH4ClLRSwY1c5OH5nhOThQSFmwsKqHA59yR0icWAqhC3ycGKgl9FzHE qxzuVuwucpA3EiXEsveLPjSWHyPhXcAYIkYM8bPZZtgB6rfMJsi 1EbHKKkhcV3rK2gcfNjeaFvIB00PYiZSZMlD43trYLnaWjavRBhGQFvCJxuZOVvpvPQTpneANSwG6YbK IAlJ6t8ZO7dbHBvKDVesaIxh89lr0VcdYqvTGuvrQompOylyy2sBWYpju86PJhqGSMiDXxsHnOuBribG BTpDja7IkOxJqXgK11uTOt8jGUvWJ5rACXpIL1pMEX0yJ3vXYWe TFTfzeIqRGCcTJWbw91jYM17JUfdVRFcFgplDYVfGKviHMNlGVludSSlGNHfZwDHnHybeOHubQVgee5j nJCftMdePcMwQQ36hQ9pkGGxjC3zjIYec9RwNVxiuvDkryocnWFaREYgXmUbCLAwQCXsPAOVmcOwuMtt jLaqhs3hJEntum9ywGMih3QgiVPmk2YdrLPsD0EfODGjsA3awnC pXHBhclxmaTBcYlxjZjJccGFyXHBhclxjZjAgRTpccGFyXGNmMiBVdGVydXMsIGNlcnZpeCwgcmlnaHQ jmVIxHFWlhqFtm9UnebqtO5RvCSizFuTsVBydAUGjIyg7ZuNcRE0AO21MKMYFLZbrQJ6CJ23STQKFDCH aWRSFSf2OOFYRPN3PKFZqMAOPC61yV7HLLWHaBTxoFWSysbYoZ6 ZHWQLHKKLGJQ8EIJQIMdSHEICMMuDsMPCywkWKxqRxcBZ6puxwuCVmf5c6pZmdLVIvCgjgQNRfebtkMI JccGFyXHBhclxwYXJ9 Comment n9yniVMuYEIpyOO1TWJyCSCdy0lvx9QmbGQubKCeGUjgeKAuemVldn98lSP8eA46XB3xSRYqYfP2YDIh fwY8Htm7UMShSMXddEPoE806a3fsw3ztnxNifBN6oOyqUJDuzhidXeM7GMjkIDWexzpxVUv8GSuuMJZw gRE6UJBfvGTyP4WmJIKaPP3omlf5DNB4JOyuKIJeCcW3UPSdqVD (test code hRMFtfGmkEWzix058CCT9OpIyJFBddyGepMrmwA2mYyPiWYFuNSdnXVWgaMNyLOjkgcDppfGawjJwxA8 taD8avDhxlR4iwKZwmOFryQFbpNEkobcpBsCjz3IuA2t6p2oahmV6uU4ei2EfTORuouDcfo7rTAexlh0 fjEQ6UBQ0YLMmWmLjNTLljC6faAMdwPFreYHdhuDmYworBB4rNF = 9835) LqzvklTZQeAkIcAGofrFKjk6dwd5OjE1jvdVliFMbwo1EpoJ6gvnssg3BhvRDtu0NaA5YsmHYofrIgp9 YxhFb8VKZbm3LdYAVTFGjhG3qwEnXbBb8qBQazCAWWAcEoEb2yFQdvNTRSVrBgIj3fCUbuWVNzOIJgIY qjjWl0TZNyu2YyX6WxSB5tTTOzAPOxsC71en1fpZO1k0BpPC9nI 4IbUVY0UDsqgU7tOIHrjtJgOEZxlBIfb3uaZDR1xTRvAGBgaRKlx7I0aQ9rYVOcVFTarBWboa4bbNFsd mVuZGVyZWQgYWJvdmUuIFxwYXJ9 Synoptic ENDOMETRIUM (ENDOMETRIUM: H YSTERECTOMY - All Specimens) 8th Edition - Protocol posted: 08/05/2019 SPECIMEN Procedure: Total hysterectomy and bilateral salpingo-oophorectomy TUMOR Tumor Site: Checklist Endometrium Histologic Ty pe: Endometrioid carcinoma, NOS Histologic Grade: FIGO grade 2 Myometrial Invasion: Not identified Uterine Serosa Involvement: Not identified Cervical Stromal (test code Involvement: Not identifi ed Other Tissue / Organ Involvement: Not applicable Lymphovascular Invasion: Not identified MARGINS LYMPH NODES Lymph Node Status: All lymph nodes negative for tumor = [id number]) cells Total Number of P elvic Nodes Examined: 4 Number of Pelvic [place] Nodes Examined: 4 Total Number of Para-aortic Nodes Examined: 0 PATHOLOGIC STAGE CLASSIFICATION (pTNM, AJCC 8th Edition) Primary Tumor (pT ): pT1a Regional Lymph Nodes Modifier: (sn) Regional Lymph Nodes (pN): pN0 FIGO STAGE FIGO Stage: IA Gross g7zyfQMkSSTdaIXPIYWfN5tvokWtDBGalJYaW7NoutnmTBruXI3wTR9bcCndnRGtyBApUL5IKCGvGrGn CBIjmUUcyoIcMyIoYIWjzJAnpMR0SVVlJF0lmxjrQUlgUEoqDTKqzwP0WDGrtODnG8QfRPLpBS7lzruf SAV7HGhqkX3xlaPMAsayRg3unSNdeKxtTxVtEmUrSTIuABLtLGU Descriptio rdBibDCUlFPp2gA1BRnyuF24jr7N6Agf0QBSgPNXsX7AfME1xIAJgsGJsB48FQhfiPIW1GOJWMnlyRUO fZQ7Ok3vyHPDleZBkVFU7CRypeHGrTLUsAQRlVIo6UKCpDMpwxOKhLJ5vbOwtRpaazPver3EimARbZGm cDDBtZOBvTBqlMEWtCJ6YDbIfCNLhMaw7EeedAXo4CVf0DO8KMe n (test UdHQAfMOcfXKA8XNLyKNa1TVjoAH3HAYi5KRY0JyU0KCL9CFHfDZKsOWEsOnSrPRPjMUByVPntGDdooi EdPJKrQVYuYHooBupjXWucG44hrYhdgF5nTexsfmGcJQR8QREvhrOSXpbypZIyvlntsBzhKsPtdLDhLg EgDQpcbHRycGFyXGxpbjBccmluMCANClxsdHJjaFxiXGNmMVxmc code = wGxJTefJmZuq8W0uTTttB2vQYLkhsDpmaFtSOa2wFTqZJ1zZFNeFKeuKZNjTCjvNnBvDmovGMGmA01oa 3ukdASob1WdXhDoa2AwsFAbOML6OE1udAalqEpmoj4cKUNkd3d6xNUfq7KrL5gtiZRzWWRzjCCxc3Dbv Rsio3OcNTwtDbOdxOOjZtnpqPNyIlFvH99dEH6dBXWfILK1CYIj [id number] WUO2GSOtXBZsvYnhBXTwbkHDQhmgIQEqOUuHUJRRDD3DUNJLQDB1NJDwJIDgHDCyp4YxAdspJAa3kUNq CU3jBFYhe5RueZOfaBsvb6FyuOnxfpCsGlDOLj5eTADxAXGiv0IyBqjgMQp3iDGqHG3hWYGku6PysUMm dAywo0NieGnobnOrNfYtKCVtn6MfL4C9IDOxMQpvt3feZHWpVDl ) [file] BKkwDEtcCQdLwBlPsbhTKX6QXdyt2xcVJD3VYQuaZIysRMhKGsaVeQvYzqzFUMaB1GqN6VytjQ7SLj4 Biomarker x0wnhTDePVXdkDW5HTKgFRYpc9gyt4UxvUWxuOJnXSwoyHQxltHalj95iTH5qG89RX0oFDHoKjH3WZRf qeC3Oyk9DYPtMQRskKFrG212s8jha9puljLscFA2wYqjHNLwaghrEyG1XZxhCOAlwbfaEEs3YUveHSJj kTH3IAWakQAoF6NeKOLiQN0zjna0ECV5BJnsKBXjNcX5QXAukVF Block(s) nCJIqyXqrUJtmo987IQE5YcZfLCHwnyXbtKofxC9rHbLkUIONQrHAJAK5VN71SYMzZTiwNWN1 (test code = 9841) Disclaimer y4mtiSTtQDTwpBAwYeXpPPAfQUPxt2hoVOZnuVEbNjTfLoBvHpGpFcctnGVuJDWbLcTnd1fim046fZQi j3zwAVInScF7bVRkWWFnaWCaG836PLUmGMfyx4oce9CmYBXbzAKmo1H2WAKOdxixqDg3sGndS34so2C3 WmqeE3sqLZZnJVAyC7VgRO3wYRCkJym2GLO7LRP7UQEjKCAiG4B (test code lLH9bNEQshOYxIWj6g5lrhDjtYQRtYUG7b1sbXHhemjEiBZ1qmt6laOr2o9txioFtGDLnQMSzfVQGSAB nD0YmfEeuXo4srFk3uOekBwhhJKW3Gwd0PA4ydn62xdh3gMaiKPBsyfvhFmC7REavKQJsbklcBCp9UGm cMXAuhXS5GQIglHYfZ2VhOUNyPK5vpme6OLD4ZFrhALTiRpR0QD = 9844) GhtGOkOABqjNelFErcm467PIP6BnHwGT8hS1Zyh4N6fZ9kaDXjOBZhxBNvDpCeGBMqid9viGNhJOmdi1 XpORV6pdJ8wTGgdDYcUTXrMK90Gdoms1DsTnghZBK9SIFcfjSgg8Xyi5beMxSxncEkN3lqK8YrEFZnQG IcJVNjCpCcghGyn2Zsg0SkcEClyRy8l8hjHTGdSPQfzUzur1ufP IT6JQSbE3V0wWZmf3rhTNvvFOXzzIL6ibP8JNThzVSeN8IszO3kFJFqRC3tsnz2i4heRPC5EVjjRTTaJ qN9ljD9XPRiyWNsFTBrfUhlPHpql910ANT9NxRzKLHuw2BwE3HlaLegC03htXtdW20sCOHflLhyxW8rg UcltJ2iDiIjQfYbTCqusObowELhmtahHCynaxC0ULjyzgrkSZLh EEeuA4lqXoGmGCHgwRjwRWqrm6QbPENzUCVzDbiqgpG3YYUVx80gBMGzi9OeHVFnhB7pwWKnTHazkaPq dEA5ZCkrssEsNqNhvjRgANZjlW2hJZHiLU0gLIOdjuKjgl2lekTsWMLnSJQcW4BcacnspWikdbZfWTXq fp4kmjFvTRN4NOLBIJ5OMVWgNONty06iJRHilKrmaC2wyYEgwqH xEUWho1TpdM7hcYFNIYLjW2ygTI9sQEkky3PqrRSbtIYlvBO6GPVip6CpIwWfjgLpvUGrtRIcB9EyeLg fI4trNUDbYYWdyoYwoVJqm6UgZOAsbKY7gORpMU7WEsTLn10bPZUwIMNUhgHcGAWrpBzhyTW1rlY7dX8 eDbDKCjZgbTDhzZKhLhkgUFZrd210ws9vrlZ4NGOvRPQdohfat4 IkNYYwOSXmoP93JGQwXJVlqz0nwerxvLBkdiOuD4Metua2bQ9qOIOiFAinGVIbYEBxStOlrTGzZzCnCg CrsMwueLmcAPrtGmIkREBvDAkgW0kmPvPmLcNxHvpjWSK2 MD JacksonGlomerular Filtration [id number] 16:58:01 Test Item Value Reference Range Interpretation Comments eGFR-AA (test code = 49 See_Comment L Normal eGFR: >= 60 8062) mL/min/1.73 m2N ote: The eGFR is earlene culated using the CKD-E PI equation. The e GFR declines with a ge. eGFR <60 mL/min /1.73 m2 is considere d as "decreased". Th is equation should only be used for pat ients 18 and older. According to th e National Kidney Foundation's dney Disease Outcome Quality Initiat davie (KDOQI) classif ication and 2012 Kidney Disease Improvi ng Global Outcomes (KDIGO) Clinica l Practice Guidel ine, the stage of CK D should be categ orized based on estima colt GFR. Stage Desc ription GFR mL/mi n/1.73 m21 Normal or h igh GFR >=902 Mildly decreased GFR 60-893a M ildly to moderately decreased GFR 45-593b Moderat christin to severely decrea sed GFR 30-444 Shayla rely decreased GFR 15-295 Kidney f ailure <15 [Auto mated message] The sy stem which generated this result transmit colt reference range : >=60 mL/min/1.73 sq. m. The reference range was not used to int erpret this result as normal/abnormal . eGFR-FRANK (test code = 42 See_Comment L Normal eGFR: >= 60 8063) mL/min/1.73 m2N ote: The eGFR is earlene culated using the CKD-E PI equation. The e GFR declines with a ge. eGFR <60 mL/min /1.73 m2 is considere d as "decreased". Th is equation should only be used for pat ients 18 and older. According to th e National Kidney Foundation's dney Disease Outcome Quality Initiat davie (KDOQI) classif ication and 2012 Kidney Disease Improvi ng Global Outcomes (KDIGO) Clinica l Practice Guidel ine, the stage of CK D should be categ orized based on estima colt GFR. Stage Desc ription GFR mL/mi n/1.73 m21 Normal or h igh GFR >=902 Mildly decreased GFR 60-893a M ildly to moderately decreased GFR 45-593b Moderat christin to severely decrea sed GFR 30-444 Shayal rely decreased GFR 15-295 Kidney f ailure <15 [Auto mated message] The sy stem which generated this result transmit colt reference range : >=60 mL/min/1.73 sq. m. The reference range was not used to int erpret this result as normal/abnormal . Lab Interpretation Abnormal (test code = 37700-8) MD Jackson.Serum Astadtqfpk1017-30-05 16:58:00 Test Item Value Reference Range Interpretation Comments Creatinine (test code = 5399) 1.20 mg/dL 0.51-0.95 H Lab Interpretation (test code = Abnormal 43022-5) MD JacksonCalcium [id number] 16:57:59 Test Item Value Reference Range Interpretation Comments Calcium Lvl (test code = 5258) 8.6 mg/dL 8.4-10.2 MD [id number] 16:57:58 Test Item Value Reference Range Interpretation Comments BUN (test code = 5055) 14 mg/dL 6-23 MD JacksonElectrolyte [id number] 16:57:57 Test Item Value Reference Range Interpretation Comments Sodium Lvl (test code = 131 See_Comment L [Au tomated message] 2561) The system Linquet generated this result transmitted ref erence range: 136 - 14 5 mEq/L. The refe rence range was not u sed to interpret this result as normal/abnor mal. Potassium Lvl (test code 4.2 See_Comment [A utomated message] = 4020) The system [employer]quet generated this result transmitted ref erence range: 3.5 - 5. 1 mEq/L. The refe rence range was not u sed to interpret this result as normal/abnor mal. Chloride (test code = 95 See_Comment L [Auto mated message] 2830) The system [employer]quet generated this result transmitted ref erence range: 98 - 107 mEq/L. The refe rence range was not u sed to interpret this result as normal/abnor mal. CO2 (test code = 5227) 24 See_Comment [Aut omated message] The system Linquet generated this result transmitted ref erence range: 22 - 29 mEq/L. The reference r jerson was not used to interpret this result as normal/abnor mal. Anion Gap (test code = 12 See_Comment [Aut omated message] 6346) The system Linquet generated this result transmitted ref erence range: 4 - 14 m Eq/L. The reference r jerson was not used to interpret this result as normal/abnor mal. Lab Interpretation (test Abnormal code = 15316-0) ManuelGlucose [id number] 16:57:56 Test Item Value Reference Range Interpretation Comments Glucose Level (test code 151 mg/dL 70-99 H Eff ective 01/04/16, = 5699) the glucose reference inter vals have been updat ed based on [place] an Diabetes Associ ation guidelines (Standards of Medical Care in Diabetes 2016. Diabetes Care 2 016; 39: S13-S22).Fa sting blood glucose:Normal: 70 99 mg/dLImpaire d fasting glucose (increased risk for diabetes or pre-diabetes): 100 125 mg/dLDiabet es mellitus: >/=1 26 mg/dL Random bl ood glucose:Normal: 70 199 mg/dLNote: Random glucose >100 mg/dL is associ ated with increased risk for diabetes Lab Interpretation (test Abnormal code = 26005-6) MD JacksonComplete Blood Count w/o [id number] 16:46:41 Test Item Value Reference Range Interpretation Comments WBC (test code = 8034) 7.5 K/uL 4.0-11.0 RBC (test code = 6932) 2.75 See_Comment L [Aut omated message] The system Linquet generated this result transmitted ref erence range: 4.00 - 5 .50 M/uL. The refer ence range was not u sed to interpret this result as normal/abnor mal. Hgb (test code = 5898) 10.6 See_Comment L [Aut omated message] The system Linquet generated this result transmitted ref erence range: 12.0 - 1 6.0 gm/dL. The refe rence range was not u sed to interpret this result as normal/abnor mal. Hct (test code = 5860) 30.2 % 37.0-47.0 L MCV (test code = 6222) 110 fL 82-98 H MCH (test code = 6220) 38.5 pg 27.0-31.0 H MCHC (test code = 6221) 35.1 See_Comment [Au tomated message] The system Linquet generated this result transmitted ref erence range: 31.0 - 3 6.0 gm/dL. The refe rence range was not u sed to interpret this result as normal/abnor mal. RDW-SD (test code = 52.3 fL 35.1-46.3 H 6972) RDW-CV (test code = 13.1 % 12.0-15.5 6971) Platelet count (test 144 K/uL 140-440 code = 6832) MPV (test code = 6282) 11.2 fL 4.0-10.4 H INRBC (test code = 0.0 % See_Comment The INRBC (instrument 5974) NRBC) value ref lects the enumeration of nucleated red b lood cells contained in a 200uL sampleof whole blood analyzed by the instrument. Thi s value maydiffer from the NRBC value repo rted in a manual differential,wh ich is based on a 100 cell differential. [Automated mess age] The system Linquet generated this result transmitted ref erence range: <=0.0. T he reference range was not used to int erpret this result as normal/abnormal . Lab Interpretation Abnormal (test code = 18099-7) MD Abad [id number] 06:32:30 Test Item Value Reference Range Interpretation Comments Anion Gap (test code = 16 See_Comment H [Aut omated message] 9405) The system Linquet generated this result transmitted ref erence range: 4 - 14 m Eq/L. The reference r jerson was not used to interpret this result as normal/abnor mal. Lab Interpretation (test Abnormal code = 10592-7) MD JacksonChloride [id number] 06:32:28 Test Item Value Reference Range Interpretation Comments Chloride (test code = 96 See_Comment L [Auto mated message] 0477) The system Linquet generated this result transmitted ref erence range: 98 - 107 mEq/L. The refe rence range was not u sed to interpret this result as normal/abnor mal. Lab Interpretation (test Abnormal code = 22168-7) MD JacksonMagnesium [id number] 06:32:27 Test Item Value Reference Range Interpretation Comments Magnesium (test code = 6359) 1.1 mg/dL 1.6-2.6 L Lab Interpretation (test code = Abnormal 98068-9) MD JacksonPotassium [id number] 06:32:26 Test Item Value Reference Range Interpretation Comments Potassium Lvl (test 3.7 See_Comment [Automa colt message] The code = 6854) system which ge nerated this result tra nsmitted reference range : 3.5 - 5.1 mEq/L. The reference range was not u sed to interpret this result as normal/abnormal . MD JacksonSodium [id number] 06:32:24 Test Item Value Reference Range Interpretation Comments Sodium Lvl (test code = 135 See_Comment L [Au tomated message] 6238) The system [employer] h generated this result transmitted ref erence range: 136 - 14 5 mEq/L. The refe rence range was not u sed to interpret this result as normal/abnor mal. Lab Interpretation (test Abnormal code = 72144-3) MD JacksonGlucose, [id number] 06:32:22 Test Item Value Reference Range Interpretation Comments Glucose Random (test 192 mg/dL 70-199 Effecti ve 01/04/16, the code = 9360) glucose referen ce intervals have been updated based o n [place] [employer] es [employer] jordy delines (Standards of M edical Care in Diabete s 2016. Diabetes Care 2 016; 39: S13-S22).Fastin g blood glucose:Normal: 70 99 mg/dLImpaire d fasting glucose (increa sed risk for diabetes or pre-diabetes): 100 125 mg/dLDiabet es mellitus: >/=1 26 mg/dL Random blood glucose:Normal: 70 199 mg/dLNote: Random glucose >100 mg /dL is associated with increased risk for diabetes MD JacksonCarbon Dioxide [id number] 06:32:21 Test Item Value Reference Range Interpretation Comments CO2 (test code = 23 See_Comment [Automated message] The 9448) system which ge nerated this result transmit colt reference range : 22 - 29 mEq/L. The refe rence range was not used to interpret this result as normal/abnormal . MD JacksonJfwjoxbjAjlivpsxuzfg9159-69-53 06:08:51 Test Item Value Reference Range Interpretation Comments Neutrophil % (test code = 82.7 % 42.0-66.0 H 6491) Lymphocyte % (test code = 10.3 % 24.0-44.0 L 6194) Monocyte % (test code = 6.3 % 2.0-7.0 6422) Eosinophil % (test code = 0.0 % 1.0-4.0 L 5520) Basophil % (test code = 0.2 % 0.0-1.0 5068) IGRE % (test code = 5958) 0.5 % 0.0-0.4 H IG RE % count includes Metamyelocytes, Myelocytes, and Promyelocytes. Neutrophil Abs (test code 5.25 K/uL 1.70-7.30 = 6492) Lymphocyte Abs (test code 0.65 K/uL 1.00-4.80 L = 6195) Monocyte Abs (test code = 0.40 K/uL 0.08-0.70 6423) Eosinophil Abs (test code 0.00 K/uL 0.04-0.40 L = 5521) Basophil Abs (test code = 0.01 K/uL 0.00-0.10 5069) IG Abs (test code = 5954) 0.03 K/uL 0.00-0.04 Lab Interpretation (test Abnormal code = 75913-6) MD Jackson.[id number] 06:08:47 Test Item Value Reference Range Interpretation Comments WBC (test code = 8034) 6.3 K/uL 4.0-11.0 RBC (test code = 6932) 2.86 See_Comment L [Aut omated message] The system Linquet generated this result transmitted ref erence range: 4.00 - 5 .50 M/uL. The refer ence range was not u sed to interpret this result as normal/abnor mal. Hgb (test code = 5898) 10.9 See_Comment L [Aut omated message] The system Linquet generated this result transmitted ref erence range: 12.0 - 1 6.0 gm/dL. The refe rence range was not u sed to interpret this result as normal/abnor mal. Hct (test code = 5860) 31.0 % 37.0-47.0 L MCV (test code = 6222) 108 fL 82-98 H MCH (test code = 6220) 38.1 pg 27.0-31.0 H MCHC (test code = 6221) 35.2 See_Comment [Au tomated message] The system Linquet generated this result transmitted ref erence range: 31.0 - 3 6.0 gm/dL. The refe rence range was not u sed to interpret this result as normal/abnor mal. RDW-SD (test code = 51.6 fL 35.1-46.3 H 6972) RDW-CV (test code = 12.9 % 12.0-15.5 6971) Platelet count (test 124 K/uL 140-440 L code = 6832) MPV (test code = 6282) 11.0 fL 4.0-10.4 H INRBC (test code = 0.0 % See_Comment The INRBC (instrument 5974) NRBC) value ref lects the enumeration of nucleated red b lood cells contained in a 200uL sampleof whole blood analyzed by the instrument. Thi s value maydiffer from the NRBC value repo rted in a manual differential,wh ich is based on a 100 cell differential. [Automated mess age] The system Linquet generated this result transmitted ref erence range: <=0.0. T he reference range was not used to int erpret this result as normal/abnormal . Lab Interpretation Abnormal (test code = 89791-0) MD JacksonPartial Thromboplastin [id number] 03:38:18 Test Item Value Reference Range Interpretation Comments aPTT (test code = 30.4 See_Comment [Automate d message] The 6773) system which ge nerated this result transmit colt reference range : 24.7 - 36.8 second(s). The reference range was not used to interpr et this result as yusuf l/abnormal. MD JacksonProthrombin Time with [id number] 03:38:17 Test Item Value Reference Range Interpretation Comments PT (test code = 6746) 14.7 See_Comment H [Auto mated message] The system Linquet generated this result transmitted ref erence range: 11.5 - 1 3.9 second(s). The reference range was not used to int erpret this result as normal/abnormal . INR (test code = 5973) 1.23 0.90-1.10 H Lab Interpretation (test Abnormal code = 01403-7) MD JacksonTMP Interpretation Antibody Screen [id number] 21:29:30 Test Item Value Reference Range Interpretation Comments TMP Auto Neg At the present ABSC Interp time, patient (test code = plasma shows no ____JANETT [place] [address]) evidence of RBC TORRIE,Dictate d by: JANETT alloantibodijason. PATRICIA TORRIE,Dic tated Date/Time: 16:29 PM CDT Transcribed Madhu e/Time: 11.11.2020 16:2 9 PM CDTElectronical ly Signed By: JANETT GOMEZ A EJ, on 11.11.2020 16:2 9 PM MD JacksonAntibody [id number] 20:49:56 Test Item Value Reference Range Interpretation Comments ABSC. (test code = 890-4) Negative ABSC MD [id number] 20:49:55 Test Item Value Reference Range Interpretation Comments ABORh. (test code = 882-1) B POS MD JacksonClot Expiration [id number] 20:49:51 Test Item Value Reference Range Interpretation Comments T & S Expiration (test code = 11/14/2020 5318) MD JacksonCOVID-19 (SARS-CoV-2) PCR-Asymptomatic [id number] 00:45:05 Test Item Value Reference Range Interpretation Comments COVID19 (SARS Not Detected Not Detected This test is a CoV-2) Result qualitative (test code = reverse-transcr iptase 54279-7) polymerase aguila n reaction (RT-PC R) developed for t he Ese AMANUEL 680 0 system and inte nded for the detecti on of SARS CoV-2 RNA in human nasophary ngeal specimens from patients who me et COVID-19 clinic al and/or epidemiological criteria. This assay has been approv ed by the FDA for use only under Emergency Use Authorization ( EUA) in laboratories that have been CLIA-certified to perform moderate-comple xity and high-comple xity tests. The performance characteristics of this assay were verified by the Microbiology Laboratory at [facility] [place], CLIA Accreditation # : [id number] and CAP Accreditation # : [id number]. Result s must be interpreted within the context of all relevant clinic al and laboratory find ings and should not form the sole basis for a diagnosis or treatment decis ion. "Presumptive Positive" resul ts are due to partial amplification o f SARS-CoV-2 targ ets and indicates l ow amounts of viru s present in the specimen at or near the limit of detection. Regardless, individuals wit h "Presumptive Positive" resul ts should be manag ed per institutional guidelines as individuals pos itive for SARS-CoV-2 virus, including use o f appropriate inf ection control protoco ls. Internal contro ls are included to ass ess for possible amplification inhibitors. If inhibition is detected, testi ng is repeated and if inhibition is confirmed the specimen is res ulted as "Invalid". W hen an "Invalid" resul t occur, it is recommended to wait 3 days before submitting a ne w specimen for te sting if clinically indicated. COVID19 SARS [employer] Swab Source (test code = 48642) COVID19 SARS Pre-OR Procedure Indication (test code = 78284) MD [id number] 16:14:00 Test Item Value Reference Range Interpretation Comments SURG (test code = SURG) RUN DATE: 09/30/20 [facility] PAGE 1 RUN TIME: 1614 Specimen Inquiry RUN USER: INTERFACE PATIENT: LUCHO VIEIRA LOC: SUSIE U #: [id number] AGE/SX: 80/F ROOM: RE09/29/20REG DR: Claudia Garibay : 36 BED: DIS: STATUS: [facility]P [facility] [place] [place] TLOC: SPEC #: [id number] RECD: 09/29/20 STATUS: SHAHANA BRADFORD #: [id number] SUSIE: 09/29/[address]: Claudia Garibay MD ENTERED: 09/29/20 SP TYPE: SURG OTHR DR: Jacky Vasquez DO ORDERED: SURG PATH LVL 4 COPIES TO: Jacky Vasquez DO [address] [place] [address] Claudia Garibay MD [address] [place] [address] HISTOLOGY: TISSUE ID [id number] PCS HELGA LEV PROCEDURE DISPOSITION ____ ___ ___ ___ ENDOMETRIAL CAV A 1 1 PROCEDURES: SURG PATH LVL 4 (09/29/20) TISSUES: A. ENDOMETRIAL CAVITY - ENDOMETRIAL CURETTINGS CONSULTATION Dr. Grover has reviewed this case and agrees with the diagnosis. CPT CODES CPT CODE(S): 13807 , , , , , , FINAL DIAGNOSIS Uterus, endometrium, curettage: ENDOMETRIOID CARCINOMA GROSS DESCRIPTION Endometrial curettings. Received in formalin are multiple irregular fragments of trujillo-brown soft tissue admixed with hemorrhagic mucoid material and dark red-brown blood clots, 4.5 x 2.5 x 0.3 cm in aggregate. The entire specimen is submitted as A1 - A3. /ba/pdb CONTINUED ON NEXT PAGE RUN DATE: 09/30/20 [facility] PAGE 2 RUN TIME: 161 Specimen Inquiry RUN USER: INTERFACE SPEC #: [id number] PATIENT: LUCHO VIEIRA #[id number] (Continued) GROSS DESCRIPTION (Continued) Grossing performed at [facility] Pathology, [facility], [address], [place], [place] [address]. Solutions Sales Consultant: Kole Grover M.D. MICROSCOPIC DESCRIPTION Endometrial curettings. Sections demonstrate endometrial glands and stroma. The majority of the endometrium demonstrates marked hyperchromasia with nuclear crowding. Prominent sections of back to back glands with no intervening stroma are identified. These findings are consistent with endometrioid carcinoma. Areas of hyperplasia with atypia are also identified. Signed SIGNATURE ON FILE German Potts 09/30/20 1619 END OF REPORT BASIC METABOLIC [id number] 14:39:00 Test Item Value Reference Range Interpretation Comments SODIUM (test code = NA) 133 mmol/L 134-147 L POTASSIUM (test code = K) 3.8 mmol/L 3.4-5.0 N CHLORIDE (test code = CL) 99 mmol/L 100-108 L CARBON DIOXIDE (test code = CO2) 27 mmol/L 21-32 N ANION GAP (test code = GAP) 7.0 GAP calc 4.0-15.0 N GLUCOSE (test code = GLU) 124 MG/DL 70-110 H BLOOD UREA NITROGEN (test code = 19 MG/DL 7-18 H BUN) GLOMERULAR FILTRATION RATE (test 51 estGFR >60 L code = GFR) CREATININE (test code = CREAT) 1.1 MG/DL 0.6-1.0 H CALCIUM (test code = CA) 8.3 MG/DL 8.5-10.1 L COVID 19 INHOUSE [id number] 14:24:00 Test Item Value Reference Range Interpretation Comments COVID 19 INHOUSE AG NEGATIVE Negative Per [facility] facturer, (test code = negative result s should [id number]) be treated aspr esumptive and, if inconsi stent with clinical signs andsymptoms or necessary for patient man agement, should betested with an alternative mol ecular assay. Negative resultsdo not preclude SA RS-CoV-2 infection and s hould not be usedas the s ole basis for patient man agement decisions. Neg ative results should be considered in t he context of apatient's r ecent exposures, hist ory, presence of cli nicalsigns and symptoms co nsistent with COVID-19. PROTHROMBIN [id number] 14:22:00 Test Item Value Reference Range Interpretation Comments PT PATIENT (test code = PTP) 11.4 SECONDS 9.3-12.9 N INTERNATIONAL NORMAL RATIO 1.02 INR Unit 0.8-1.2 N (test code = INR) THROMBOPLASTIN TIME [id number] 14:22:00 Test Item Value Reference Range Interpretation Comments THROMBOPLASTIN TIME PARTIAL 33.7 SECONDS 26-35 N (test code = PTT) CBC W/AUTO [id number] 14:13:00 Test Item Value Reference Range Interpretation Comments WHITE BLOOD CELL (test code = 6.6 K/mm3 3.5-11.0 N WBC) RED BLOOD CELL (test code = 3.34 M/mm3 4.70-6.10 L RBC) HEMOGLOBIN (test code = HGB) 12.3 G/DL 10.4-14.9 N HEMATOCRIT (test code = HCT) 35.0 % 31.5-44.1 N MEAN CELL VOLUME (test code = 104.8 Fl 84.5-98.6 H MCV) MEAN CELL HGB (test code = MCH) 36.8 pg 27.0-34.2 H MEAN CELL HGB CONCETRATION 35.1 G/DL 31.5-34.0 H (test code = MCHC) RED CELL DISTRIBUTION WIDTH 13.0 SD 11.5-14.5 N (test code = RDW) PLATELET COUNT (test code = 167 K/mm3 150-450 N PLT) MEAN PLATELET VOLUME (test code 10.70 fL 7.0-10.5 H = MPV) NEUTROPHIL % (test code = NT%) 54.1 % 40-76 N IMMATURE GRANULOCYTE % (test 0.3 % 0.0-5.0 N code = IG%) LYMPHOCYTE % (test code = LY%) 31.6 % 20.5-51.1 N MONOCYTE % (test code = MO%) 9.9 % 1.7-9.3 H EOSINOPHIL % (test code = EO%) 3.2 % 0.0-6.0 N BASOPHIL % (test code = BA%) 0.9 % 0.0-2.0 N NUCLEATED RBC % (test code = 0.0 /100WBC% 0.0-1.0 N NRBC%) NEUTROPHIL # (test code = NT#) 3.6 K/mm3 1.8-7.6 N IMMATURE GRANULOCYTE # (test 0.02 x10 3/uL 0.00-0.03 N code = IG#) LYMPHOCYTE # (test code = LY#) 2.1 K/mm3 0.6-3.2 N MONOCYTE # (test code = MO#) 0.7 K/mm3 0.3-1.1 N EOSINOPHIL # (test code = EO#) 0.2 K/mm3 0.0-0.4 N BASOPHIL # (test code = BA#) 0.1 K/mm3 0.0-0.1 N NUCLEATED RBC # (test code = 0.0 K/mm3 0.0-0.1 N NRBC#) MANUAL DIFF REQUIRED (test code NO DIFF/SCN CRITERIA = MDIFF)
[2021-06-24 12:48] LABS: Urine Blood Negative (Negative); Urine Glucose Negative (Negative); Urine Protein Negative (Negative); Urine Specific Gravity 1.025 (1.005-1.030)
[2021-06-24] MEDS ORDERED: NA CHLORIDE 0.9% 1,000 ML ONE (12:49)
[2021-06-24 13:06] LABS: Absolute Lymphocytes (CBC) 1.4 K/uL (0.7-4.9); Hematocrit 41.4 % (36.0-45.0); Lymphocytes % 11.2 % (15.3-44.8); MPV 9.5 fL (7.6-11.3); RBC Red Blood Cell Count 3.77 M/uL (3.86-4.86)
[2021-06-24 13:07] LABS: Protime INR 0.93
--- NOTE | 2021-06-24 13:25 | RAD REPORT ---
EXAM DESCRIPTION: CTAbdomen Pelvis W Contrast - 06/24/2021 1:04 pm CLINICAL HISTORY: ABD PAIN COMPARISON: No comparisons TECHNIQUE: CT of the abdomen and pelvis was performed. All CT scans are performed using dose optimization technique as appropriate and may include automated exposure control or mA/KV adjustment according to patient size. FINDINGS: Lower chest: Mild cardiomegaly. Liver: No acute abnormality or suspicious lesions. Biliary: No biliary ductal dilatation. Stomach: No significant focal abnormality. Duodenum: Question large duodenum diverticulum in the right upper quadrant. Pancreas: No significant abnormality. Spleen: No significant abnormality. Adrenal: No suspicious lesions. Kidney/ureter: No hydronephrosis. Nonobstructing stone in the right kidney. Retroperitoneum: No retroperitoneal adenopathy. Vascular: No aneurysm. Atherosclerosis Bowel: Small bowel obstruction is present. Mesenteric edema is noted. Two points of transition are pr esent. Normal appendix. Diverticulosis. No pneumatosis . Peritoneum: Ascites is present. Bladder: Grossly unremarkable. Reproductive: Hysterectomy Bones: No acute fracture. Multilevel degenerative changes are present in the spine. Surgical changes in the posterior elements L4-5. Grade 1 anterolisthesis of L4 on L5. Retrolisthesis L1 with respect L 2 and L2 respective L3 noted . Other: n/a IMPRESSION: Small bowel obstruction present with distal transition point likely related to adhesive changes. Possible proximal transition point at a site of small bowel caliber change in the central ab domen. A closed loop obstruction is within the differential. Ascites is present.
[2021-06-24 13:33] LABS: Blood Morphology Comment NOT SEEN (NOT SEEN); Platelet Estimate ADEQ; White Blood Cell Scan OK (OK)
[2021-06-24 13:41] LABS: Bilirubin Direct 0.4 mg/dL (0-0.2); Magnesium 1.7 mg/dL (1.8-2.4); Potassium 4.3 mmol/L (3.5-5.1); Protein, Total 7.6 g/dL (6.4-8.2); Troponin High Sensitivity 8.6 pg/mL (<58.9)
[2021-06-24] MEDS ORDERED: MAGNESIUM SULFATE 1 gm IVPB 1 GM/100 ML BAG IV ONE (14:08)
[2021-06-24] MEDS ORDERED: LIDOCAINE VISCOUS 2% SOLN 15 ML UDC ONE (14:08)
[2021-06-24] MEDS ORDERED: FAMOTIDINE 20 MG/2 ML VIAL IV ONE (14:08)
[2021-06-24] MEDS ORDERED: PIPERACIL/TAZO 3.375 GM VIAL IV ONE (14:08)
[2021-06-24] MEDS ORDERED: NA CHLORIDE 0.9% 100 ML ONE (14:08)
--- NOTE | 2021-06-24 14:45 | ER ---
Nurse's Notes [facility] Name: Johana Riley Age: 81 yrs Sex: Female : 1940 Arrival Date: 06/24/2021 Time: 11:48 Bed 15 Private MD: Diagnosis: Abdominal pain, Generalized;Other and unspecified intestinal obstruction-small bowel obstruction;Hypomagnesemia;Elevated white blood cell count Presentation: 06/24 11:54 Chief complaint: Patient states: about 5 oclock this morning my started hurting. i felt tw2 like i had dry heave and nauseous. lbm this morning just a little bit. Saturday i had diarrhea all day. its like spasms. Chief complaint:. Coronavirus screen: diarrhea, nausea, Client presents with at least one sign or symptom that may indicate coronavirus-19. Standard/surgical mask placed on the client. Provider contacted for isolation considerations. Ebola Screen: Patient denies travel to an Ebola-affected area in the 21 days before illness onset. Initial Sepsis Screen: Does the patient meet any 2 criteria? No. Patient's initial sepsis screen is negative. Does the patient have a suspected source of infection? No. Patient's initial sepsis screen is negative. Risk Assessment: Do you want to hurt yourself or someone else? Patient reports no desire to harm self or others. Onset of symptoms was June 24, 2021. 11:54 Method Of Arrival: Ambulatory tw2 11:54 Acuity: CHAITANYA 3 tw2 Triage Assessment: 11:59 General: Appears in no apparent distress. Behavior is calm, cooperative, appropriate tw2 for age. Pain: Complains of pain in abdomen. GI: Reports lower abdominal pain, upper abdominal pain, diarrhea, nausea. Historical: - Allergies: 11:56 No Known Allergies; tw2 - Home Meds: 11:56 atenolol 50 mg oral tab 1 tab 2 times per day [Active]; losartan 50 mg oral tab 1 tab tw2 once daily [Active]; triamterene-hydrochlorothiazid 37.5-25 mg Oral tab 1 tab once daily [Active]; pantoprazole 40 mg oral TbEC 1 tab once daily [Active]; - PMHx: 11:56 GERD; Hypertension; tw2 - PSHx: 11:56 hysterectomy; spine spacer surgery; tw2 - Immunization history:: Client reports receiving the 2nd dose of the Covid vaccine, Flu vaccine is up to date. - Social history:: Smoking status: Patient/guardian denies using tobacco, the patient reports quitting approximately 2 years ago, Patient uses alcohol, occasionally. - Family history:: not pertinent. Screenin:07 Abuse screen: Denies threats or abuse. Nutritional screening: No deficits noted. tw2 Tuberculosis screening: No symptoms or risk factors identified. Fall Risk Secondary diagnosis (15 points) impaired mobility. Assessment: 12:10 General: Appears in no apparent distress. comfortable, well groomed, well developed, jh6 well nourished. 12:10 Pain: Complains of pain in abdomen Pain currently is 5 out of 10 on a pain scale. jh6 Quality of pain is described as aching, crampy, shooting, Pain began 4 hours ago. Is continuous. GI: Bowel sounds present X 4 quads. hyperactive in right upper quadrant, left upper quadrant, right lower quadrant and left lower quadrant Abd is soft and non tender X 4 quads. Reports lower abdominal pain, upper abdominal pain, nausea. 13:04 Reassessment: Patient appears in no apparent distress at this time. No changes from jd3 previously documented assessment. Patient and/or family updated on plan of care and expected duration. Pain level reassessed. Patient is alert, oriented x 3, equal unlabored respirations, skin warm/dry/pink. 14:00 Reassessment: Patient and/or family updated on plan of care and expected duration. Pain jh6 level reassessed. Patient is alert, oriented x 3, equal unlabored respirations, skin warm/dry/pink. 14:00 Pain: Pain currently is 3 out of 10 on a pain scale. jh6 15:07 Reassessment: No changes from previously documented assessment. Patient and/or family jh6 updated on plan of care and expected duration. Pain level reassessed. Patient is alert, oriented x 3, equal unlabored respirations, skin warm/dry/pink. pt tolerated ng tube well has spouse at bedside. call light in reach. 17:02 Reassessment: Patient appears in no apparent distress at this time. No changes from jd3 previously documented assessment. Patient and/or family updated on plan of care and expected duration. Pain level reassessed. Patient is alert, oriented x 3, equal unlabored respirations, skin warm/dry/pink. Vital Signs: 11:54 BP 171 / 72; Pulse 72; Resp 17; Temp 97.4(TE); Pulse Ox 99% on R/A; Weight 57.61 kg tw2 (R); Height 5 ft. 2 in. (157.48 cm); 14:00 BP 151 / 68; Pulse 82; Resp 18; Pulse Ox 100% ; Pain 3/10; jh6 15:00 BP 152 / 67; Pulse 75; Resp 18; Pulse Ox 98% ; Pain 3/10; jh6 16:32 BP 141 / 59; Pulse 79; Resp 20; Temp 97.4(O); Pulse Ox 99% on R/A; Pain 3/10; jh6 17:02 BP 129 / 71; Pulse 79; Resp 17 S; Pulse Ox 95% on R/A; jd3 11:54 Body Mass Index 23.23 (57.61 kg, 157.48 cm) tw2 ED Course: 11:48 Patient arrived in ED. ds1 11:56 Triage completed. tw2 11:56 Arm band placed on. tw2 12:00 Bed in low position. Call light in reach. Side rails up X 1. Adult w/ patient. tw2 12:01 Ruben Orta, STACEY is Primary Nurse. jd3 12:03 Rogelio Jackson MD is Attending Physician. [facility] 12:48 Initial lab(s) drawn, by in, sent to lab. Urine collected: clean catch specimen, clear, jh6 tea colored, Amount Voided: 30mL. Inserted saline lock: 22 gauge in right antecubital area, using aseptic technique. 12:[address] via wheelchair. jh6 13:04 CT Abd/Pelvis - IV Contrast Only In Process Unspecified. EDMS 14:18 Zully Gage MD is Hospitalizing Provider. kai 14:50 NGT: inserted 16 Fr. via left nare. verified placement of air over stomach, verified jh6 return of gastric contents, to intermittent suction. Returned gastric contents. Returned bile. Patient tolerated well. 16:31 Diet: Patient is NPO. jh6 Administered Medications: 13:03 Drug: NS 0.9% 500 ml Route: IV; Rate: bolus; Site: right antecubital; jd3 13:04 Drug: NS 0.9% 1000 ml Route: IV; Rate: 125 ml/hr; Site: right antecubital; jd3 14:01 CANCELLED (Duplicate Order): NS 0.9% 500 ml IV at bolus once [facility] 14:18 Drug: Viscous Lidocaine Liquid (4 %) 10 ml Route: Mucous Membrane; jd3 15:04 Follow up: Response: No adverse reaction [facility] 14:19 Drug: Zosyn (piperacillin-tazobactam) 3.375 grams Route: IVPB; Infused Over: 60 mins; jd3 Site: right antecubital; 15:04 Follow up: Response: No adverse reaction [facility] 14:20 Drug: Pepcid (famotidine) 20 mg Route: IVP; Site: right antecubital; jd3 15:04 Follow up: Response: No adverse reaction [facility] 14:20 Drug: Magnesium Sulfate 1 grams Route: IVPB; Infused Over: 1 hrs; Site: right jd3 antecubital; Output: 16:32 Gastric: 300ml (NGT); Total: 300ml. [facility] Outcome: 14:45 Decision to Hospitalize by Provider. [facility] 20:50 Patient left the ED. lp1 Signatures: Dispatcher [employer] EDDC Rogelio Jackson MD MD cha Sanford, Demi ds1 Adrienne Campbell RN RN lp1 Fátima Nick RN RN 2 Ruben Orta RN RN jTiffanie Tobar RN RN jh6
--- NOTE | 2021-06-24 14:45 | EDPHYS ---
Physician Documentation [facility] Name: Johana Riley Age: 81 yrs Sex: Female : 1940 Arrival Date: 06/24/2021 Time: 11:48 Bed 15 Private MD: YOUSUF Physician Rogelio Jackson HPI: 06/24 14:02 This 81 yrs old Female presents to ER via Ambulatory with complaints of kai Abdominal Pain. 14:02 The patient presents with abdominal pain in the upper abdomen, in the lower abdomen. kai Onset: The symptoms/episode began/occurred this morning. The patient presents to the emergency department with nausea, vomiting, that is intermittent. Onset: The symptoms/episode began/occurred this morning. Possible causes: unknown. The symptoms are aggravated by food , The symptoms are alleviated by nothing. Associated signs and symptoms: Pertinent positives: abdominal pain, anorexia, nausea, vomiting. The symptoms do not radiate. Modifying factors: The symptoms are alleviated by remaining still, the symptoms are aggravated by food. Historical: - Allergies: 11:56 No Known Allergies; tw2 - Home Meds: 11:56 atenolol 50 mg oral tab 1 tab 2 times per day [Active]; losartan 50 mg oral tab 1 tab tw2 once daily [Active]; triamterene-hydrochlorothiazid 37.5-25 mg Oral tab 1 tab once daily [Active]; pantoprazole 40 mg oral TbEC 1 tab once daily [Active]; - PMHx: 11:56 GERD; Hypertension; tw2 - PSHx: 11:56 hysterectomy; spine spacer surgery; tw2 - Immunization history:: Client reports receiving the 2nd dose of the Covid vaccine, Flu vaccine is up to date. - Social history:: Smoking status: Patient/guardian denies using tobacco, the patient reports quitting approximately 2 years ago, Patient uses alcohol, occasionally. - Family history:: not pertinent. ROS: 14:02 Constitutional: Negative for fever, chills, and weight loss, Eyes: Negative for injury, kai pain, redness, and discharge, ENT: Negative for injury, pain, and discharge, Neck: Negative for injury, pain, and swelling, Cardiovascular: Negative for chest pain, palpitations, and edema, Respiratory: Negative for shortness of breath, cough, wheezing, and pleuritic chest pain, Back: Negative for injury and pain, : Negative for injury, bleeding, discharge, and swelling, MS/Extremity: Negative for injury and deformity, Skin: Negative for injury, rash, and discoloration, Neuro: Negative for headache, weakness, numbness, tingling, and seizure, Psych: Negative for depression, anxiety, suicide ideation, homicidal ideation, and hallucinations, Allergy/Immunology: Negative for hives, rash, and allergies, Endocrine: Negative for neck swelling, polydipsia, polyuria, polyphagia, and marked weight changes, Hematologic/Lymphatic: Negative for swollen nodes, abnormal bleeding, and unusual bruising. 14:02 Abdomen/GI: Positive for abdominal pain, nausea and vomiting, abdominal cramps, abdominal distension. Exam: 14:02 Constitutional: This is a well developed, well nourished patient who is awake, alert, kai and in no acute distress. Head/Face: Normocephalic, atraumatic. Eyes: Pupils equal round and reactive to light, extra-ocular motions intact. Lids and lashes normal. Conjunctiva and sclera are non-icteric and not injected. Cornea within normal limits. Periorbital areas with no swelling, redness, or edema. ENT: Nares patent. No nasal discharge, no septal abnormalities noted. Tympanic membranes are normal and external auditory canals are clear. Oropharynx with no redness, swelling, or masses, exudates, or evidence of obstruction, uvula midline. Mucous membranes moist. Neck: Trachea midline, no thyromegaly or masses palpated, and no cervical lymphadenopathy. Supple, full range of motion without nuchal rigidity, or vertebral point tenderness. No Meningismus. Chest/axilla: Normal chest wall appearance and motion. Nontender with no deformity. No lesions are appreciated. Cardiovascular: Regular rate and rhythm with a normal S1 and S2. No gallops, murmurs, or rubs. Normal PMI, no JVD. No pulse deficits. Respiratory: Lungs have equal breath sounds bilaterally, clear to auscultation and percussion. No rales, rhonchi or wheezes noted. No increased work of breathing, no retractions or nasal flaring. Back: No spinal tenderness. No costovertebral tenderness. Full range of motion. Female : Normal external genitalia. Skin: Warm, dry with normal turgor. Normal color with no rashes, no lesions, and no evidence of cellulitis. MS/ Extremity: Pulses equal, no cyanosis. Neurovascular intact. Full, normal range of motion. Neuro: Awake and alert, GCS 15, oriented to person, place, time, and situation. Cranial nerves II-XII grossly intact. Motor strength 5/5 in all extremities. Sensory grossly intact. Cerebellar exam normal. Normal gait. Psych: Awake, alert, with orientation to person, place and time. Behavior, mood, and affect are within normal limits. 14:02 ECG was reviewed by the Attending Physician. 14:02 Abdomen/GI: Inspection: distension, Bowel sounds: active, Palpation: mild abdominal tenderness, in all quadrants, Liver: no appreciated palpable abnormalities, Hernia: not appreciated. Vital Signs: 11:54 BP 171 / 72; Pulse 72; Resp 17; Temp 97.4(TE); Pulse Ox 99% on R/A; Weight 57.61 kg tw2 (R); Height 5 ft. 2 in. (157.48 cm); 14:00 BP 151 / 68; Pulse 82; Resp 18; Pulse Ox 100% ; Pain 3/10; jh6 15:00 BP 152 / 67; Pulse 75; Resp 18; Pulse Ox 98% ; Pain 3/10; jh6 16:32 BP 141 / 59; Pulse 79; Resp 20; Temp 97.4(O); Pulse Ox 99% on R/A; Pain 3/10; jh6 17:02 BP 129 / 71; Pulse 79; Resp 17 S; Pulse Ox 95% on R/A; jd3 11:54 Body Mass Index 23.23 (57.61 kg, 157.48 cm) tw2 MDM: 12:03 Patient medically screened. kai 14:10 Differential diagnosis: Nonspecific abd pain, cholecystitis, pancreatitis, kai gastroenteritis, bowel obstruction, cholecystitis, diverticulitis, non-specific abd pain, pancreatitis, Peptic Ulcer Disease, Ureterolithiasis, urinary tract infection. Data reviewed: vital signs, nurses notes, lab test result(s), EKG, radiologic studies, CT scan. Data interpreted: sterile preparation technician: rate is 72 beats/min, rhythm is regular, Pulse oximetry: on room air is 99 %. Test interpretation: by ED physician or midlevel provider: ECG. Counseling: I had a detailed discussion with the patient and/or guardian regarding: the historical points, exam findings, and any diagnostic results supporting the discharge/admit diagnosis, lab results, radiology results, the need for further work-up and treatment in the hospital. 06/24 12:15 Order name: Basic Metabolic Panel; Complete Time: 14:01 [facility] 06/24 12:15 Order name: CBC with Diff; Complete Time: 14: [facility] 06/24 12:15 Order name: LFT's; Complete Time: 14: [facility] 06/24 12:15 Order name: Magnesium; Complete Time: 14: [facility] 06/24 12:15 Order name: NT PRO-BNP; Complete Time: 14: [facility] 06/24 12:15 Order name: PT-INR; Complete Time: 13:27 [facility] 06/24 12:15 Order name: Troponin HS; Complete Time: 14: [facility] 06/24 12:15 Order name: Lipase; Complete Time: 14: [facility] 06/24 12:15 Order name: Lactate; Complete Time: 13:27 [facility] 06/24 12:48 Order name: Urine Dipstick-Ancillary; Complete Time: 13:27 EDMD 06/24 13:33 Order name: CBC Smear Scan; Complete Time: 14: EDMD 06/24 15:26 Order name: COVID-19 (Coronavirus) Document "Date of Onset" if Symptomatic jd3 06/24 15:57 Order name: SARS-COV-2 RT PCR EDMD 06/24 12:15 Order name: CT Abd/Pelvis - IV Contrast Only; Complete Time: 13:27 [facility] 06/24 16:15 Order name: Comprehensive Metabolic Panel EDMS 06/24 16:15 Order name: Comprehensive Metabolic Panel EDMS 06/24 16:15 Order name: Protime (+INR) EDMS 06/24 16:15 Order name: Protime (+INR) EDMS 06/24 16:15 Order name: PTT, Activated Partial Thromb EDMS 06/24 16:16 Order name: CBC with Automated Diff EDMS 06/24 16:16 Order name: CBC with Automated Diff EDMS 06/24 16:16 Order name: PTT, Activated Partial Thromb EDMS 06/24 16:29 Order name: Folic Acid, (Folate) EDMS 06/24 16:29 Order name: Iron EDMS 06/24 16:29 Order name: Lipase EDMS 06/24 16:29 Order name: Magnesium EDMS 06/24 16:29 Order name: Procalcitonin [facility] 06/24 16:29 Order name: Vitamin B12 Level [facility] 06/24 12:15 Order name: EKG; Complete Time: 12:16 [facility] 06/24 12:15 Order name: Cardiac monitoring; Complete Time: 12:47 [facility] 06/24 12:15 Order name: EKG - Nurse/Tech; Complete Time: 12:47 [facility] 06/24 12:15 Order name: IV Saline Lock; Complete Time: 12:47 [facility] 06/24 12:15 Order name: Labs collected and sent; Complete Time: 12:47 [facility] 06/24 12:15 Order name: O2 Per Protocol; Complete Time: 12:36 [facility] 06/24 12:15 Order name: O2 Sat Monitoring; Complete Time: 12:36 [facility] 06/24 12:15 Order name: Urine Dipstick-Ancillary (obtain specimen); Complete Time: 12:47 [facility] 06/24 14:01 Order name: NG Tube; Complete Time: 15:04 [facility] 06/24 16:16 Order name: CONS Physician Consult [facility] 06/24 16:16 Order name: NPO [facility] 06/24 16:29 Order name: Abdomen W Erect [facility] 06/24 16:29 Order name: Abdomen W Erect EDMD EC:02 Rate is 67 beats/min. Rhythm is regular. QRS [place] is Normal. ID interval is normal. QRS kai interval is normal. QT interval is normal. No Q waves. T waves are Normal. No ST changes noted. Clinical impression: Normal ECG and No evidence of ischemia. Interpreted by me. Reviewed by me. Administered Medications: 13:03 Drug: NS 0.9% 500 ml Route: IV; Rate: bolus; Site: right antecubital; jd3 13:04 Drug: NS 0.9% 1000 ml Route: IV; Rate: 125 ml/hr; Site: right antecubital; jd3 14:01 CANCELLED (Duplicate Order): NS 0.9% 500 ml IV at bolus once kai 14:18 Drug: Viscous Lidocaine Liquid (4 %) 10 ml Route: Mucous Membrane; jd3 15:04 Follow up: Response: No adverse reaction jh6 14:19 Drug: Zosyn (piperacillin-tazobactam) 3.375 grams Route: IVPB; Infused Over: 60 mins; jd3 Site: right antecubital; 15:04 Follow up: Response: No adverse reaction [facility] 14:20 Drug: Pepcid (famotidine) 20 mg Route: IVP; Site: right antecubital; jd3 15:04 Follow up: Response: No adverse reaction [facility] 14:20 Drug: Magnesium Sulfate 1 grams Route: IVPB; Infused Over: 1 hrs; Site: right jd3 antecubital; Disposition Summary: 06/24/21 14:45 Hospitalization Ordered Hospitalization Status: Inpatient Admission kai Provider: Zully Gage cha Location: Telemetry/MedSurg (Inpatient) kai Condition: Stable kai Problem: new kai Symptoms: have improved kai Bed/Room Type: Standard [facility] Room Assignment: 228(06/24/21 16:55) Diagnosis - Abdominal pain, Generalized kai - Other and unspecified intestinal obstruction - small bowel obstruction kai - Hypomagnesemia kai - Elevated white blood cell count kai Forms: - Medication Reconciliation Form kai - SBAR form kai Signatures: Dispatcher [employer] EDMS Tamika Muller RN RN Rogelio Delarosa MD MD cha Wise, Tara RN RN tw2 Ruben Orta RN RN jd3 Tiffanie Barajas RN jh6 Corrections: (The following items were deleted from the chart) 13:14 12:16 Chest Single View+RAD.RAD.BRZ ordered. EDMS EDMS 14:01 14:01 NS 0.9% 500 ml IV at bolus once ordered. [facility] 14:02 13:59 NG Tube ordered. [facility] j 15:57 15:27 CORONAVIRUS ordered. EDMS EDMS 16:55 14:45 kai
[2021-06-24] MEDS ORDERED: ACETAMINOPHEN 500 MG TAB PO PRN (16:12)
--- NOTE | 2021-06-24 16:28 | P.HP ---
Certification for Inpatient Patient admitted to: Inpatient With expected LOS: >2 Midnights Patient will require the following post-hospital care: None Practitioner: I am a practitioner with admitting privileges, knowledge of patient current condition, hospital course, and medical plan of care. Services: Services provided to patient in accordance with Admission requirements found in Title 42 Section 412.3 of the Code of Federal Regulations Patient History Date of Service: 06/24/21 Reason for admission: Small bowel obstruction History of Present Illness: Patient is an 81-year-old female who came to the hospital with abdominal discomfort. Pain was mainly in the upper abdomen and she had some nausea and vomiting. She is a whenever she ate her pain was aggravated. Patient came to the hospital for evaluation. CT was performed. CT scan revealed a small bowel obstruction. Patient has a history of uterine cancer status post hysterectomy. Surgery was consulted. At this time patient will be admitted to the hospital for further evaluation. Allergies No Known Allergies Allergy (Verified 08/04/18 00:40) Home Medications: Pantoprazole [Protonix Tab*] 40 mg PO DAILY 08/04/18 atenoloL [Tenormin*] 50 mg PO BID 08/04/18 Losartan Potassium [Cozaar] 50 mg PO DAILY 06/24/21 Triamterene/Hydrochlorothiazid [Triamterene-Hctz 37.5-25 mg Tb] 1 each PO DAILY 06/24/21 - Past Medical/Surgical History Diabetic: No -: HTN -: Gastroesophageal reflux disease -: Uterine cancer -: Right ear surgery -: Hysterectomy - Family History Father Family History: Reviewed- Non-Contributory - Social History Smoking Status: Never smoker Alcohol use: Yes CD- Drugs: No Caffeine use: Yes Review of Systems 10-point ROS is otherwise unremarkable Physical Examination - Vital Signs Temperature: 98 F Blood Pressure: 120/80 Pulse: 80 Respirations: 18 Pulse Ox (%): 95 - Physical Exam General: Alert, In no apparent distress, Oriented x3 HEENT: Atraumatic, PERRLA, Mucous membr. moist/pink, EOMI, Sclerae nonicteric Neck: Supple, 2+ carotid pulse no bruit, No LAD, Without JVD or thyroid abnormality Respiratory: Clear to auscultation bilaterally, Normal air movement Cardiovascular: Regular rate/rhythm, Normal S1 S2 Gastrointestinal: Absent bowel sounds, Tenderness, Rebound, Guarding Musculoskeletal: No clubbing, No swelling, No tenderness Integumentary: No rashes Neurological: Normal speech, Normal strength at 5/5 x4 extr, Normal tone, Sensation intact, Cranial nerves 3-12 intact, Normal affect, Abnormal gait - Studies Laboratory Data (last 24 hrs) 06/24/21 12:30: PT 10.7, INR 0.93 06/24/21 12:30: WBC 12.80 H, Hgb 13.5, Hct 41.4, Plt Count 175 06/24/21 12:30: Sodium 135 L, Potassium 4.3, BUN 30 H, Creatinine 1.27, Glucose 122 H, Magnesium 1.7 L, Total Bilirubin 1.0, AST 40 H, ALT 51, Alkaline Phosphatase 71, Lipase 145 Assessment & Plan - Problems (Diagnosis) (1) SBO (small bowel obstruction) Current Visit: Yes Status: Acute (2) CVA (cerebral vascular accident) Current Visit: No Status: Acute Qualifiers: (3) HTN (hypertension) Current Visit: No Status: Chronic (4) History of uterine cancer Current Visit: Yes Status: Acute - Plan -continue with IV antibiotics -continue with IV fluids -Surgery consultation -CBC, CMP, lipase, stool cultures -NPO -Repeat abdominal film -NG tube -Antiemetics Discharge Plan: Home Plan to discharge in: Greater than 2 days - Advance Directives Does patient have a Living Will: No Does patient have a Durable POA for Healthcare: No - Code Status/Comfort Care Code Status Assessed: Yes Code Status: Full Code Critical Care: No Time Spent Managing PTS Care (In Minutes): 45
[2021-06-24] MEDS: MORPHINE 2 MG/ML SYR IV PRN ×2 (16:50→22:47)
[2021-06-24] MEDS: ONDANSETRON 4 MG/2 ML VIAL IV PRN ×2 (16:50→22:49)
[2021-06-24] MEDS: NA CHLORIDE 0.9% 1,000 ML IV SCH (17:00)
[2021-06-24] MEDS: METOPROLOL TARTRATE 5 MG/5 ML INJ IV SCH ×2 (17:00→22:04)
--- NOTE | 2021-06-24 22:56 | CON ---
Date of Consultation: 06/24/2021 Reason For Service: Small bowel obstruction. History Of Present Illness: This is the case of an 81-year-old patient comes to us with abdominal pa in. She does not give much information other than she had surgery about 6 months ago at [facility]. It was done by an oncologist, but she does not remember exactly the surgery or the indications for it. She has been doing good until the last day. She developed nausea, vomiting, abdominal pain and decided to come today to ER and diagnosed with small bowel obstruction. She denies any dysuria, mary turia, hematochezia, melena. Denies any recent traveling out of the country. Denies any family memb er sick at home. She does not recall the last colonoscopy, although she was advised. Allergies: NONE. Social History: She does not smoke. She does not drink alcohol. Past Medical History: GERD, hypertension. Past Surgical History: Include hysterectomy and spine spacer surgery and whatever she claims as [facility] er surgery, she thinks is LINOLEUM TILE LAYER related. Review of Systems: Nausea, vomiting, abdominal pain. 10 points otherwise unremarkable. Physical Examination: General: Patient is awake, alert. HEENT: Pupils are equal and reactive. Anicteric. Neck: Supple. Chest: Clear. Abdomen: Soft and depressible. Softly distended. No guarding or rebound. Bowel sounds positive. Rectal/Pelvic: Deferred. Extremities: Good capillary refill. Laboratory Data: Blood work shows WBC count of 12.8 with hemoglobin of 13.5. Potassium 4.3. Lipase 145. CAT scan of the abdomen and pelvis interpreted by Dr. Boucher as small bowel obstruction present, possible transition point around the area of the central abdomen. Assessment: This is an 81-year-old patient with small bowel obstruction. I explained to her the emily gnosis, the CAT scan. She states she does not want to go for surgery at this point and at this momen t, she does not want to go for surgery at all, but I explained to her that clinically she is okay now , but if she deteriorate, we might have to go laparotomy with possible bowel resection, possible osto my with benefits, alternatives, and risks include, but not limited to infection, bleeding, damage to adjacent structures as complication, SC, and even . We are going to use NG tube, bowel rest, am bulation, and see how she does clinically. HM/MODL Voice ID: [id number] Report ID: [id number]
[2021-06-24 23:28] VITALS: BMI 23.2
[2021-06-25] MEDS: NA CHLORIDE 0.9% 1,000 ML IV SCH ×3 (04:39→22:45)
[2021-06-25] MEDS: METOPROLOL TARTRATE 5 MG/5 ML INJ IV SCH ×3 (05:30→18:12)
[2021-06-25 06:47] LABS: Absolute Lymphocytes (CBC) 1.2 K/uL (0.7-4.9); Hematocrit 37.3 % (36.0-45.0); Lymphocytes % 12.6 % (15.3-44.8); MPV 9.5 fL (7.6-11.3); RBC Red Blood Cell Count 3.41 M/uL (3.86-4.86)
[2021-06-25 07:03] LABS: Protime INR 0.96
[2021-06-25 07:11] LABS: Bilirubin Total 1.1 mg/dL (0.2-1.0); Potassium 4.3 mmol/L (3.5-5.1); Protein, Total 5.8 g/dL (6.4-8.2)
[2021-06-25 07:52] LABS: Folic Acid, (Folate) 6.8 ng/mL (3.1-17.5)
[2021-06-25 08:03] LABS: Magnesium 1.3 mg/dL (1.8-2.4)
--- NOTE | 2021-06-25 11:38 | RAD REPORT ---
EXAM DESCRIPTION: RAD - Abdomen W Erect - 06/25/2021 8:40 am CLINICAL HISTORY: SBO Pain COMPARISON: Abdomen Pelvis W Contrast dated 06/24/2021 FINDINGS: Several distended small bowel loops filled with air again seen, greatest in the left abdom en, appearing mildly improved since yesterday's study. Enteric tube is in the stomach. No free air. [id number] levoscoliosis lumbar spine. IMPRESSION: Mild improvement in bowel obstruction pattern since yesterday's study.
[2021-06-25] MEDS ORDERED: Magnesium Sulfate 2gm IVPB 2 G/50 ML BAG IV ONE (11:47)
[2021-06-25] MEDS: MORPHINE 2 MG/ML SYR IV PRN (20:40)
[2021-06-25] MEDS ORDERED: CYANOCOBALAMIN 1000MCG/ML INJ IM ONE (20:41)
[2021-06-25] MEDS ORDERED: ENALAPRILAT 1.25 MG/ML VIAL IV ONE (20:44)
--- NOTE | 2021-06-25 20:53 | P.PN ---
Subjective Date of Service: 06/25/21 Patient is clinically feeling better. No flatus at this time. If she does have flatus will go ahead and clamp NG tube. Repeat abdominal film shows some improvement. Continue with IV hydration at this time & appreciate General surgery input. Review of Systems 10-point ROS is otherwise unremarkable Physical Examination - Vital Signs Temperature: 98 F Blood Pressure: 120/80 Pulse: 80 Respirations: 18 Pulse Ox (%): 95 - Physical Exam General: Alert, In no apparent distress, Oriented x3 Respiratory: Clear to auscultation bilaterally, Normal air movement Cardiovascular: Regular rate/rhythm, Normal S1 S2, No murmurs Gastrointestinal: Hypoactive, No rebound, No guarding, Tenderness Musculoskeletal: No clubbing, No swelling, No tenderness Neurological: Other (Within normal limits) - Studies Medications List Reviewed: Yes Assessment & Plan - Problems (Diagnosis) (1) SBO (small bowel obstruction) Current Visit: Yes Status: Acute (2) CVA (cerebral vascular accident) Current Visit: No Status: Acute Qualifiers: (3) HTN (hypertension) Current Visit: No Status: Chronic (4) History of uterine cancer Current Visit: Yes Status: Acute - Plan Continue with plan of care as mentioned below: -continue with IV antibiotics -continue with IV fluids -Surgery consultation appreciated -repeat labs in the morning -NPO -Repeat abdominal film -NG tube;clamp NG tube if patient with flatus -Antiemetics - Advance Directives Does patient have a Living Will: No Does patient have a Durable POA for Healthcare: No - Code Status/Comfort Care Code Status: Full Code
[2021-06-25] MEDS ORDERED: HYDRALAZINE HCL 20 MG/ML VIAL IV PRN (21:03)
[2021-06-25] MEDS: atenoloL 50 MG TAB PO SCH (22:44)
[2021-06-25] MEDS ORDERED: PHENOL 1.4% ORAL SPRAY 180ML MM PRN (23:48)
[2021-06-26] MEDS: MORPHINE 2 MG/ML SYR IV PRN ×3 (01:20→17:01)
[2021-06-26 06:21] LABS: Absolute Lymphocytes (CBC) 1.3 K/uL (0.7-4.9); Hematocrit 37.9 % (36.0-45.0); Lymphocytes % 13.5 % (15.3-44.8); MPV 9.6 fL (7.6-11.3); RBC Red Blood Cell Count 3.44 M/uL (3.86-4.86)
--- NOTE | 2021-06-26 07:27 | RAD REPORT ---
EXAM DESCRIPTION: RAD - Abdomen W Erect - 06/26/2021 6:32 am CLINICAL HISTORY: SBO COMPARISON: Abdomen W Erect dated 06/25/2021; Abdomen Pelvis W Contrast dated 06/24/2021 FINDINGS: NG tube tip overlies the stomach. No significant change in small bowel dilatation compared with 06/25/2021. No acute osseous abnormality.Visualized lungs are unremarkable.No abnormal calcific ations. Surgical changes in the lower spine. Mild cardiomegaly. IMPRESSION: Similar small bowel dilatation compared with 06/25/2021 which remains consistent with a small bowel obstruction.
[2021-06-26 08:01] LABS: Albumin 2.7 g/dL (3.4-5.0); Bilirubin Total 0.9 mg/dL (0.2-1.0); Magnesium 2.7 mg/dL (1.8-2.4); Potassium 4.4 mmol/L (3.5-5.1); Protein, Total 5.5 g/dL (6.4-8.2)
[2021-06-26 08:50] LABS: Blood Morphology Comment NOTED (NOT SEEN); Macrocytosis 1+; Platelet Estimate ADEQ
[2021-06-26] MEDS ORDERED: CYANOCOBALAMIN 1000MCG/ML INJ IM SCH (09:00)
[2021-06-26] MEDS: atenoloL 50 MG TAB PO SCH ×2 (09:00→21:00)
[2021-06-26] MEDS: LOSARTAN POTASSIUM 50 MG TABLET PO SCH (09:00)
[2021-06-26] MEDS ORDERED: PANTOPRAZOLE 40MG TABLET PO SCH (09:00)
[2021-06-26] MEDS: NA CHLORIDE 0.9% 1,000 ML IV SCH ×2 (09:27→17:59)
[2021-06-26] MEDS: FOLIC ACID 1 MG in NA CHLORIDE 0.9% 50 ML IV SCH (09:27)
--- NOTE | 2021-06-26 12:45 | PN ---
Date of Progress Note: 06/26/2021 Diagnosis: Small bowel obstruction. Subjective: The patient started to pass some gas, but has not been able to tolerate liquids yet. Sh e tried this morning some liquid and she vomited, so she was once again kept n.p.o. Objective: Chest: Clear. Abdomen: Soft and depressible. No guarding or rebound. Softly distended, but no peritonitis. Extremities: Good capillary refill. Laboratory Data: Blood work reviewed. X-rays reviewed from today with no major improvement. Plan: We will like the small bowel series before we can advance diet. The family understand the rae gical options, although they would like not to use them at this moment, let see what small bowel seri es shows. VANESSA/JEREMÍAS Voice ID: [id number] Report ID: [id number]
--- NOTE | 2021-06-26 14:37 | P.PN ---
Subjective Date of Service: 06/26/21 Chief Complaint: Small bowel obstruction Subjective: Other (Patient reports passage of gas. No stool noted. Patient with NG tube in place.) Physical Examination - Vital Signs Temperature: 97.6 F Blood Pressure: 136/59 Pulse: 69 Respirations: 16 Pulse Ox (%): 96 - Studies Medications List Reviewed: Yes Assessment & Plan Discharge Plan: Home Plan to discharge in: Greater than 2 days Physician Review Additional Text: COVID: Negative CT scan: COMPARISON: No comparisons TECHNIQUE: CT of the abdomen and pelvis was performed. All CT scans are performed using dose optimization technique as appropriate and may include automated exposure control or mA/KV adjustment according to patient size. FINDINGS: Lower chest: Mild cardiomegaly. Liver: No acute abnormality or suspicious lesions. Biliary: No biliary ductal dilatation. Stomach: No significant focal abnormality. Duodenum: Question large duodenum diverticulum in the right upper quadrant. Pancreas: No significant abnormality. Spleen: No significant abnormality. Adrenal: No suspicious lesions. Kidney/ureter: No hydronephrosis. Nonobstructing stone in the right kidney. Retroperitoneum: No retroperitoneal adenopathy. Vascular: No aneurysm. Atherosclerosis Bowel: Small bowel obstruction is present. Mesenteric edema is noted. Two points of transition are present. Normal appendix. Diverticulosis. No pneumatosis . Peritoneum: Ascites is present. Bladder: Grossly unremarkable. Reproductive: Hysterectomy Bones: No acute fracture. Multilevel degenerative changes are present in the spine. Surgical changes in the posterior elements L4-5. Grade 1 anterolisthesis of L4 on L5. Retrolisthesis L1 with respect L2 and L2 respective L3 noted . IMPRESSION: Small bowel obstruction present with distal transition point likely related to adhesive changes. Possible proximal transition point at a site of small bowel caliber change in the central abdomen. A closed loop obstruction is within the differential. Ascites is present. KUB: COMPARISON: Abdomen W Erect dated 06/25/2021; Abdomen Pelvis W Contrast dated 06/24/2021 FINDINGS: NG tube tip overlies the stomach. No significant change in small bowel dilatation compared with 06/25/2021. No acute osseous abnormality.Visualized lungs are unremarkable.No abnormal calcifications. Surgical changes in the lower spine. Mild cardiomegaly. IMPRESSION: Similar small bowel dilatation compared with 06/25/2021 which remains consistent with a small bowel obstruction. Physical exam: General: Alert, In no apparent distress, Oriented x3 HEENT: NG tube in place. Respiratory: Clear to auscultation bilaterally, Normal air movement Cardiovascular: Regular rate/rhythm, Normal S1 S2, No murmurs Gastrointestinal: Still with abdominal tenderness. Musculoskeletal: No clubbing, No swelling, No tenderness Neurological: Other (Within normal limits) Impression: Small bowel obstruction Acute renal insufficiency Hypertension History of CVA GERD History of uterine cancer Plan: Small bowel obstruction: Patient remains with NG tube in place. KUB still shows small bowel obstruction. Continue IV fluids. Will discuss with surgery. If no improvement patient may require intervention. Acute renal insufficiency: Continue IV fluids. Electrolyte protocol in place. Hypertension: Continue atenolol and losartan. History of CVA: Overall stable GERD: Continue Protonix. History of uterine cancer: Stable DVT prophylaxis: Lovenox CODE STATUS: Full code Advance care [id number] minutes: Home at discharge Time Spent Managing Pts Care (In Minutes): 55
[2021-06-26] MEDS ORDERED: SODIUM CHLORIDE 0.9% 10ML INJ IV PRN (14:39)
[2021-06-26] MEDS: ENOXAPARIN 40 MG/0.4 ML SQ SCH (16:12)
[2021-06-26 23:31] VITALS: O2SAT 96
[2021-06-27] MEDS: NA CHLORIDE 0.9% 1,000 ML IV SCH ×2 (03:56→16:40)
[2021-06-27 05:42] LABS: Absolute Lymphocytes (CBC) 1.6 K/uL (0.7-4.9); Hematocrit 35.4 % (36.0-45.0); Lymphocytes % 17.3 % (15.3-44.8); MPV 9.5 fL (7.6-11.3); RBC Red Blood Cell Count 3.19 M/uL (3.86-4.86)
--- NOTE | 2021-06-27 06:06 | P.PN ---
Subjective Date of Service: 06/27/21 Chief Complaint: Small bowel obstruction Subjective: Other (Still no passage of gas. NG tube in place. Patient desires to eat.) Physical Examination - Vital Signs Temperature: 97.6 F Blood Pressure: 115/52 Pulse: 67 Respirations: 16 Pulse Ox (%): 99 - Studies Medications List Reviewed: Yes Assessment & Plan Discharge Plan: Home Plan to discharge in: Greater than 2 days Physician Review Additional Text: COVID: Negative CT scan: COMPARISON: No comparisons TECHNIQUE: CT of the abdomen and pelvis was performed. All CT scans are performed using dose optimization technique as appropriate and may include automated exposure control or mA/KV adjustment according to patient size. FINDINGS: Lower chest: Mild cardiomegaly. Liver: No acute abnormality or suspicious lesions. Biliary: No biliary ductal dilatation. Stomach: No significant focal abnormality. Duodenum: Question large duodenum diverticulum in the right upper quadrant. Pancreas: No significant abnormality. Spleen: No significant abnormality. Adrenal: No suspicious lesions. Kidney/ureter: No hydronephrosis. Nonobstructing stone in the right kidney. Retroperitoneum: No retroperitoneal adenopathy. Vascular: No aneurysm. Atherosclerosis Bowel: Small bowel obstruction is present. Mesenteric edema is noted. Two points of transition are present. Normal appendix. Diverticulosis. No pneumatosis . Peritoneum: Ascites is present. Bladder: Grossly unremarkable. Reproductive: Hysterectomy Bones: No acute fracture. Multilevel degenerative changes are present in the spine. Surgical changes in the posterior elements L4-5. Grade 1 anterolisthesis of L4 on L5. Retrolisthesis L1 with respect L2 and L2 respective L3 noted . IMPRESSION: Small bowel obstruction present with distal transition point likely related to adhesive changes. Possible proximal transition point at a site of small bowel caliber change in the central abdomen. A closed loop obstruction is within the differential. Ascites is present. KUB: COMPARISON: Abdomen W Erect dated 06/25/2021; Abdomen Pelvis W Contrast dated 06/24/2021 FINDINGS: NG tube tip overlies the stomach. No significant change in small bowel dilatation compared with 06/25/2021. No acute osseous abnormality.Visualized lungs are unremarkable.No abnormal calcifications. Surgical changes in the lower spine. Mild cardiomegaly. IMPRESSION: Similar small bowel dilatation compared with 06/25/2021 which remains consistent with a small bowel obstruction. Physical exam: General: Alert, In no apparent distress, Oriented x3 HEENT: NG tube in place. Respiratory: Clear to auscultation bilaterally, Normal air movement Cardiovascular: Regular rate/rhythm, Normal S1 S2, No murmurs Gastrointestinal: Still with pain with palpation. Bowel sounds decreased throughout. Musculoskeletal: No clubbing, No swelling, No tenderness Neurological: Other (Within normal limits) Impression: Small bowel obstruction Acute renal insufficiency Hypertension History of CVA GERD History of uterine cancer Plan: Small bowel obstruction: Abdominal x-ray yesterday showed small bowel obstruction. Patient to have small bowel series today. If no improvement patient will likely require surgery. This was addressed in detail with patient. Patient does not want surgery. She would consider discharge AGAINST MEDICAL ADVICE if this was required. Spoke with at length concerning plan of care. agrees that if the patient required surgery he would recommend this be done here as it may be difficult to transfer patient. Will discuss with surgery in detail. Await small bowel series. Continue IV fluids. Acute renal insufficiency: Continue IV fluids. Electrolyte protocol in place. Hypertension: Continue atenolol and losartan. History of CVA: Overall stable GERD: Continue Protonix. History of uterine cancer: Stable DVT prophylaxis: Lovenox CODE STATUS: Full code Advance care [email or web address] minutes: Home at discharge Time Spent Managing Pts Care (In Minutes): 55
[2021-06-27 06:07] LABS: Magnesium 1.8 mg/dL (1.8-2.4)
[2021-06-27] MEDS: MORPHINE 2 MG/ML SYR IV PRN ×2 (06:29→16:48)
[2021-06-27 07:02] LABS: Anisocytosis 1+; Blood Morphology Comment NOTED (NOT SEEN); Macrocytosis 1+; Platelet Estimate DECR; White Blood Cell Scan DIFF (OK)
[2021-06-27] MEDS: LOSARTAN POTASSIUM 50 MG TABLET PO SCH (08:54)
[2021-06-27] MEDS: atenoloL 50 MG TAB PO SCH ×2 (08:54→21:00)
[2021-06-27] MEDS: FOLIC ACID 1 MG in NA CHLORIDE 0.9% 50 ML IV SCH (09:00)
[2021-06-27] MEDS ORDERED: MAGNESIUM SULFATE 1 gm IVPB 1 GM/100 ML BAG IV ONE (09:00)
[2021-06-27] MEDS: PANTOPRAZOLE 40 MG INJ IVP SCH (13:28)
--- NOTE | 2021-06-27 13:33 | PN ---
Date of Progress Note: 06/27/2021 Diagnosis: Small bowel obstructions. Subjective: The patient is doing well. She is right now coming up and down for her x-ray result. W werner ordered a small bowel series today. They claimed to have been passing flatus and ambulating, but n o bowel movement yet. Plan: Follow the small bowel series. The patient and family understand that options will come based on that when if she is open and the small bowel series are negative. We will like to advance the di et today. If not, she has to once again consider her option of surgical intervention. VANESSA/SETHL Voice ID: [id number] Report ID: [id number]
[2021-06-27] MEDS: ENOXAPARIN 40 MG/0.4 ML SQ SCH (16:40)
--- NOTE | 2021-06-27 20:26 | RAD REPORT ---
EXAM DESCRIPTION: RAD - Small Bowel Series - 06/27/2021 3:33 pm CLINICAL HISTORY: Abdominal pain/ . FINDINGS: Images were obtained for 11 hours. There is borderline dilatation of jejunum and most of the ileum. Contrast is not visualized within the colon. IMPRESSION: It appears that the patient has a high-grade mechanical obstruction. The examination was discussed with Dr. Alves
[2021-06-28] MEDS: NA CHLORIDE 0.9% 1,000 ML IV SCH ×3 (00:05→20:20)
[2021-06-28] MEDS: MORPHINE 2 MG/ML SYR IV PRN (04:25)
--- NOTE | 2021-06-28 06:10 | P.PN ---
Subjective Date of Service: 06/28/21 Chief Complaint: Small bowel obstruction Subjective: Improving (Patient reports improvement) Physical Examination - Vital Signs Temperature: 97.9 F Blood Pressure: 122/54 Pulse: 65 Respirations: 16 Pulse Ox (%): 98 - Studies Medications List Reviewed: Yes Assessment & Plan Discharge Plan: Home Plan to discharge in: 72 Hours Physician Review Additional Text: COVID: Negative CT scan: COMPARISON: No comparisons TECHNIQUE: CT of the abdomen and pelvis was performed. All CT scans are performed using dose optimization technique as appropriate and may include automated exposure control or mA/KV adjustment according to patient size. FINDINGS: Lower chest: Mild cardiomegaly. Liver: No acute abnormality or suspicious lesions. Biliary: No biliary ductal dilatation. Stomach: No significant focal abnormality. Duodenum: Question large duodenum diverticulum in the right upper quadrant. Pancreas: No significant abnormality. Spleen: No significant abnormality. Adrenal: No suspicious lesions. Kidney/ureter: No hydronephrosis. Nonobstructing stone in the right kidney. Retroperitoneum: No retroperitoneal adenopathy. Vascular: No aneurysm. Atherosclerosis Bowel: Small bowel obstruction is present. Mesenteric edema is noted. Two points of transition are present. Normal appendix. Diverticulosis. No pneumatosis . Peritoneum: Ascites is present. Bladder: Grossly unremarkable. Reproductive: Hysterectomy Bones: No acute fracture. Multilevel degenerative changes are present in the spine. Surgical changes in the posterior elements L4-5. Grade 1 anterolisthesis of L4 on L5. Retrolisthesis L1 with respect L2 and L2 respective L3 noted . IMPRESSION: Small bowel obstruction present with distal transition point likely related to adhesive changes. Possible proximal transition point at a site of small bowel caliber change in the central abdomen. A closed loop obstruction is within the differential. Ascites is present. Small bowel series 06/27/2021: FINDINGS: Images were obtained for 11 hours. There is borderline dilatation of jejunum and most of the ileum. Contrast is not visualized within the colon. IMPRESSION: It appears that the patient has a high-grade mechanical obstruction. KU06/28/2021: COMPARISON: Abdomen W Erect dated 06/26/2021; Small Bowel Series dated 06/27/2021 FINDINGS: Enteric contrast has reached the rectum. Scattered contrast of the small bowel and colon with decreased small bowel dilatation. Enteric tube tip overlies the stomach. No acute osseous abnormality.Visualized lungs are unremarkable.No abnormal calcifications. Surgical changes in the lower spine. IMPRESSION: Improving/resolving small bowel dilatation with contrast in the rectum that excludes a high-grade small bowel obstruction . Physical exam: General: Alert, In no apparent distress, Oriented x3 HEENT: NG tube in place. Respiratory: Clear to auscultation bilaterally, Normal air movement Cardiovascular: Regular rate/rhythm, Normal S1 S2, No murmurs Gastrointestinal: Still with pain with palpation. Bowel sounds decreased throughout. Musculoskeletal: No clubbing, No swelling, No tenderness Neurological: Other (Within normal limits) Impression: Small bowel obstruction Acute renal insufficiency Hypertension History of CVA GERD History of uterine cancer Plan: Small bowel obstruction: X-ray shows improvement. Case discussed with surgery. Surgery plans for clear liquid diet. If the patient worsens patient still may require surgical intervention. Continue with surgery recommendations. Acute renal insufficiency: Continue IV fluids. Electrolyte protocol in place. Hypertension: Continue atenolol and losartan. History of CVA: Overall stable GERD: Continue Protonix. History of uterine cancer: Stable DVT prophylaxis: Lovenox CODE STATUS: Full code Advance care [id number] minutes: Home at discharge Time Spent Managing Pts Care (In Minutes): 55
[2021-06-28 06:26] LABS: Absolute Lymphocytes (CBC) 1.1 K/uL (0.7-4.9); Hematocrit 38.5 % (36.0-45.0); Lymphocytes % 9.9 % (15.3-44.8); MPV 9.4 fL (7.6-11.3); RBC Red Blood Cell Count 3.46 M/uL (3.86-4.86)
[2021-06-28 06:44] LABS: Magnesium 1.6 mg/dL (1.8-2.4); Potassium 3.7 mmol/L (3.5-5.1)
--- NOTE | 2021-06-28 07:46 | RAD REPORT ---
EXAM DESCRIPTION: RAD - Abdomen W Erect - 06/28/2021 7:21 am CLINICAL HISTORY: sbo COMPARISON: Abdomen W Erect dated 06/26/2021; Small Bowel Series dated 06/27/2021 FINDINGS: Enteric contrast has reached the rectum. Scattered contrast of the small bowel and colon w ith decreased small bowel dilatation. Enteric tube tip overlies the stomach. No acute osseous abnorma lity.Visualized lungs are unremarkable.No abnormal calcifications. Surgical changes in the lower spin e. IMPRESSION: Improving/resolving small bowel dilatation with contrast in the rectum that excludes a h igh-grade small bowel obstruction .
[2021-06-28] MEDS: LOSARTAN POTASSIUM 50 MG TABLET PO SCH (08:40)
[2021-06-28] MEDS: atenoloL 50 MG TAB PO SCH ×2 (08:40→20:21)
[2021-06-28] MEDS: PANTOPRAZOLE 40 MG INJ IVP SCH (08:41)
[2021-06-28] MEDS ORDERED: MAGNESIUM SULFATE 1 gm IVPB 1 GM/100 ML BAG IV ONE (09:00)
[2021-06-28] MEDS: FOLIC ACID 1 MG in NA CHLORIDE 0.9% 50 ML IV SCH (10:34)
--- NOTE | 2021-06-28 12:33 | PN ---
Date of Progress Note: 06/28/2021 Diagnosis: Small bowel obstruction. Subjective: The patient is doing better, tolerating diet today. She has 3 bowel movements. Also, s he is passing some gas since yesterday. Feels better. The abdomen is still benign. No nausea. No vomiting present. Physical Examination: Chest: Clear. Abdomen: Soft and depressible. Nose: Intact. NG tube, minimal drainage. Extremities: Good capillary refill. Assessment And Plan: Small bowel series were discussed last night with Dr. Mcbride and it was delay of the contrast and the x-ray that we ordered today shows in the rectum at least she has partial smal l bowel obstruction for obvious reason and she went to major cancer surgery 6 months ago in [place]. She is trying to avoid any surgical intervention and that may be possible or not 100%. So what we discussed with her is we are going to give her clear liquid diet and she wants NG tube out. We ar e going to agree with that and then advance diet slowly. If once again the bowel obstruction returns , then she may have to once again consider surgical intervention. She was advised the importance of taking time eating and chewing her food and also following up with [facility] even if she improves f rom this one because the intestine is still not working properly. Today, abdomen is benign. So, we are going to start a clear liquid diet, advance to full liquids. VANESSA/JEREMÍAS Voice ID: [id number] Report ID: [id number]
[2021-06-28] MEDS: ENOXAPARIN 40 MG/0.4 ML SQ SCH (16:48)
[2021-06-29 05:57] LABS: Absolute Lymphocytes (CBC) 1.2 K/uL (0.7-4.9); Hematocrit 32.9 % (36.0-45.0); Lymphocytes % 12.2 % (15.3-44.8); MPV 9.5 fL (7.6-11.3); RBC Red Blood Cell Count 2.99 M/uL (3.86-4.86)
--- NOTE | 2021-06-29 05:57 | P.PN ---
Subjective Date of Service: 06/29/21 Chief Complaint: Small bowel obstruction Subjective: Other (Patient tolerating clear liquid diet. NG tube removed yesterday. Patient desires to go home) Physical Examination - Vital Signs Temperature: 97.5 F Blood Pressure: 124/56 Pulse: 70 Respirations: 18 Pulse Ox (%): 98 - Studies Medications List Reviewed: Yes Assessment & Plan Discharge Plan: Home Plan to discharge in: 24 Hours Physician Review Additional Text: COVID: Negative CT scan: COMPARISON: No comparisons TECHNIQUE: CT of the abdomen and pelvis was performed. All CT scans are performed using dose optimization technique as appropriate and may include automated exposure control or mA/KV adjustment according to patient size. FINDINGS: Lower chest: Mild cardiomegaly. Liver: No acute abnormality or suspicious lesions. Biliary: No biliary ductal dilatation. Stomach: No significant focal abnormality. Duodenum: Question large duodenum diverticulum in the right upper quadrant. Pancreas: No significant abnormality. Spleen: No significant abnormality. Adrenal: No suspicious lesions. Kidney/ureter: No hydronephrosis. Nonobstructing stone in the right kidney. Retroperitoneum: No retroperitoneal adenopathy. Vascular: No aneurysm. Atherosclerosis Bowel: Small bowel obstruction is present. Mesenteric edema is noted. Two points of transition are present. Normal appendix. Diverticulosis. No pneumatosis . Peritoneum: Ascites is present. Bladder: Grossly unremarkable. Reproductive: Hysterectomy Bones: No acute fracture. Multilevel degenerative changes are present in the spine. Surgical changes in the posterior elements L4-5. Grade 1 anterolisthesis of L4 on L5. Retrolisthesis L1 with respect L2 and L2 respective L3 noted . IMPRESSION: Small bowel obstruction present with distal transition point likely related to adhesive changes. Possible proximal transition point at a site of small bowel caliber change in the central abdomen. A closed loop obstruction is within the differential. Ascites is present. Small bowel series 06/27/2021: FINDINGS: Images were obtained for 11 hours. There is borderline dilatation of jejunum and most of the ileum. Contrast is not visualized within the colon. IMPRESSION: It appears that the patient has a high-grade mechanical obstruction. KU06/28/2021: COMPARISON: Abdomen W Erect dated 06/26/2021; Small Bowel Series dated 06/27/2021 FINDINGS: Enteric contrast has reached the rectum. Scattered contrast of the small bowel and colon with decreased small bowel dilatation. Enteric tube tip overlies the stomach. No acute osseous abnormality.Visualized lungs are unremarkable.No abnormal calcifications. Surgical changes in the lower spine. IMPRESSION: Improving/resolving small bowel dilatation with contrast in the rectum that excludes a high-grade small bowel obstruction . Physical exam: General: Alert, In no apparent distress, Oriented x3 HEENT: No longer with NG tube Respiratory: Clear to auscultation bilaterally, Normal air movement Cardiovascular: Regular rate/rhythm, Normal S1 S2, No murmurs Gastrointestinal: No significant pain noted. Patient without NG tube. Musculoskeletal: No clubbing, No swelling, No tenderness Neurological: Other (Within normal limits) Impression: Small bowel obstruction Acute renal insufficiency Hypertension History of CVA GERD History of uterine cancer Plan: Small bowel obstruction: X-ray shows yesterday showed improvement. Case d iscussed with surgery. Surgery started clear liquid diet. Patient tolerating diet at this time. No significant nausea or vomiting. Patient reports passage of gas and some stool. Continue to monitor closely. Await further recommendations from surgery. Patient desires to go home. Anticipate possible discharge in the next 24 to 48 hours. Acute renal insufficiency: Continue IV fluids. Electrolyte protocol in place. Hypertension: Continue atenolol and losartan. History of CVA: Overall stable GERD: Continue Protonix. History of uterine cancer: Stable DVT prophylaxis: Lovenox CODE STATUS: Full code Advance care [id number] minutes: Home at discharge Time Spent Managing Pts Care (In Minutes): 55
[2021-06-29 06:08] LABS: Magnesium 1.7 mg/dL (1.8-2.4); Potassium 3.1 mmol/L (3.5-5.1)
[2021-06-29] MEDS: NA CHLORIDE 0.9% 1,000 ML IV SCH (07:00)
[2021-06-29] MEDS ORDERED: POTASSIUM CL SA 10 MEQ TAB PO ONE ×2 (09:00→21:00)
[2021-06-29] MEDS ORDERED: MAGNESIUM SULFATE 1 gm IVPB 1 GM/100 ML BAG IV ONE (09:00)
[2021-06-29] MEDS: FOLIC ACID 1 MG in NA CHLORIDE 0.9% 50 ML IV SCH (10:11)
[2021-06-29] MEDS: atenoloL 50 MG TAB PO SCH ×2 (10:11→21:12)
[2021-06-29] MEDS: LOSARTAN POTASSIUM 50 MG TABLET PO SCH (10:11)
[2021-06-29] MEDS: PANTOPRAZOLE 40 MG INJ IVP SCH (10:11)
[2021-06-29] MEDS: NACHLORIDE 0.45% 1,000 ML IV SCH (10:14)
--- NOTE | 2021-06-29 14:52 | P.DS ---
Admission Date: 06/24/21 Discharge Date: 06/30/21 Primary Care Provider: Dr. Vasquez Disposition: ROUTINE DISCHARGE Discharge Condition: GOOD Reason for Admission: Small bowel obstruction Consultations: Surgery-Dr. Alves Procedures: COVID: Negative CT scan: COMPARISON: No comparisons TECHNIQUE: CT of the abdomen and pelvis was performed. All CT scans are performed using dose optimization technique as appropriate and may include automated exposure control or mA/KV adjustment according to patient size. FINDINGS: Lower chest: Mild cardiomegaly. Liver: No acute abnormality or suspicious lesions. Biliary: No biliary ductal dilatation. Stomach: No significant focal abnormality. Duodenum: Question large duodenum diverticulum in the right upper quadrant. Pancreas: No significant abnormality. Spleen: No significant abnormality. Adrenal: No suspicious lesions. Kidney/ureter: No hydronephrosis. Nonobstructing stone in the right kidney. Retroperitoneum: No retroperitoneal adenopathy. Vascular: No aneurysm. Atherosclerosis Bowel: Small bowel obstruction is present. Mesenteric edema is noted. Two points of transition are present. Normal appendix. Diverticulosis. No pneumatosis . Peritoneum: Ascites is present. Bladder: Grossly unremarkable. Reproductive: Hysterectomy Bones: No acute fracture. Multilevel degenerative changes are present in the spine. Surgical changes in the posterior elements L4-5. Grade 1 anterolisthesis of L4 on L5. Retrolisthesis L1 with respect L2 and L2 respective L3 noted . IMPRESSION: Small bowel obstruction present with distal transition point likely related to adhesive changes. Possible proximal transition point at a site of small bowel caliber change in the central abdomen. A closed loop obstruction is within the differential. Ascites is present. Small bowel series 06/27/2021: FINDINGS: Images were obtained for 11 hours. There is borderline dilatation of jejunum and most of the ileum. Contrast is not visualized within the colon. IMPRESSION: It appears that the patient has a high-grade mechanical obstruction. KU/: COMPARISON: Abdomen W Erect dated 06/26/2021; Small Bowel Series dated 06/27/2021 FINDINGS: Enteric contrast has reached the rectum. Scattered contrast of the small bowel and colon with decreased small bowel dilatation. Enteric tube tip overlies the stomach. No acute osseous abnormality.Visualized lungs are unremarkable.No abnormal calcifications. Surgical changes in the lower spine. IMPRESSION: Improving/resolving small bowel dilatation with contrast in the rectum that excludes a high-grade small bowel obstruction . Medical Problem List: Small bowel obstruction, resolved Acute renal insufficiency Hypertension History of CVA GERD History of uterine cancer Brief History of Present Illness: 81-year-old female presented to the emergency room with abdominal pain. Patient was evaluated in the emergency room. CT scan revealed small bowel obstruction. Patient with history of uterine cancer status post hysterectomy. Patient was admitted for treatment. Patient required NG tube. Hospital Course: Patient presented with abdominal pain secondary to small bowel obstruction. Patient was admitted for treatment. Patient continued with NG tube, IV fluids and n.p.o. status upon admission. Patient was seen and evaluated by surgery. Patient improved slowly. Repeat x-ray showed improvement. Patient was eventually taken off the NG tube. She was given a trial of clear liquid diet. Patient tolerating clear liquid diet without nausea, abdominal pain. Patient was eventually transitioned to pured diet. Elevated pured diet. No significant abdominal pain, nausea or vomiting. Patient will be discharged home. Care discussed in detail with surgery and family. At discharge patient will continue with a pured diet. Follow-up with surgery within 1 week to follow-up this hospitalization. Education on small bowel obstruction provided. Patient had acute renal insufficiency related to above. Patient previously on Dyazide. This was discontinued. Patient received IV fluids with improvement. Patient back to baseline. Recommend to recheck labBMP in 1 week to monitor progress. Patient with hypertension. Blood pressure stable on atenolol and losartan. Dyazide was discontinued. At discharge patient will continue with atenolol 50 twice daily and losartan 50 once daily. No need for Dyazide at discharge. Recommend to maintain blood pressure less than 130/80. Further adjustment can be done by her PCP. Patient with history of CVA. Overall stable. Patient with GERD. At discharge we will continue with Protonix 40 mg daily. Vital Signs/Physical Exam: Temp Pulse Resp BP Pulse Ox 97.8 F 79 24 H 137/65 100 06/29/21 12:00 06/29/21 12:00 06/29/21 12:00 06/29/21 12:06/29/21 12:00 General: Alert, In no apparent distress, Oriented x3, Cooperative HEENT: Atraumatic Neck: Supple Respiratory: Clear to auscultation bilaterally, Normal air movement Cardiovascular: Normal pulses, Regular rate/rhythm Gastrointestinal: Normal bowel sounds, No ascites, No tenderness, No masses, No rebound, No guarding Musculoskeletal: No erythema, No tenderness, No warmth Integumentary: No tenderness/swelling, No erythema, No warmth, No cyanosis Neurological: Normal speech, Normal strength at 5/5 x4 extr, Normal tone, Normal affect Laboratory Data at Discharge: WBC 10.20 K/uL (4.3-10.9) 06/29/21 05:26 Hgb 10.8 g/dL (12.0-15.0) L 06/29/21 05:26 Hct 32.9 % (36.0-45.0) L 06/29/21 05:26 Plt Count 145 K/uL (152-406) L 06/29/21 05:26 PT 11.0 SECONDS (9.5-12.5) 06/25/21 06:18 INR 0.96 06/25/21 06:18 APTT 27.1 SECONDS (24.3-36.9) 06/25/21 06:18 Sodium 141 mmol/L (136-145) 06/29/21 05:26 Potassium 3.1 mmol/L (3.5-5.1) L 06/29/21 05:26 BUN 23 mg/dL (7-18) H 06/29/21 05:26 Creatinine 0.89 mg/dL (0.55-1.3) 06/29/21 05:26 Glucose 125 mg/dL (74-106) H 06/29/21 05:26 Magnesium 1.7 mg/dL (1.8-2.4) L 06/29/21 05:26 Total Bilirubin 0.9 mg/dL (0.2-1.0) 06/26/21 05:56 AST 22 U/L (15-37) 06/26/21 05:56 ALT 30 U/L (12-78) 06/26/21 05:56 Alkaline Phosphatase 40 U/L (45-117) L 06/26/21 05:56 Lipase 134 U/L (73-393) 06/25/21 06:18 Home Medications: Pantoprazole [Protonix Tab*] 40 mg PO DAILY 08/04/18 atenoloL [Tenormin*] 50 mg PO BID 08/04/18 Losartan Potassium [Cozaar] 50 mg PO DAILY 01/15/22 Physician Discharge Instructions: Patient presented with abdominal pain secondary to small bowel obstruction. Patient was admitted for treatment. Patient continued with NG tube, IV fluids and n.p.o. status upon admission. Patient was seen and evaluated by surgery. Patient improved slowly. Repeat x-ray showed improvement. Patient was eventually taken off the NG tube. She was given a trial of clear liquid diet. Patient tolerating clear liquid diet without nausea, abdominal pain. Patient was eventually transitioned to pured diet. Elevated pured diet. No significant abdominal pain, nausea or vomiting. Patient will be discharged home. Care discussed in detail with surgery and family. At discharge patient will continue with a pured diet. Follow-up with surgery within 1 week to follow-up this hospitalization. Education on small bowel obstruction provided. Patient had acute renal insufficiency related to above. Patient previously on Dyazide. This was discontinued. Patient received IV fluids with improvement. Patient back to baseline. Recommend to recheck labBMP in 1 week to monitor progress. Patient with hypertension. Blood pressure stable on atenolol and losartan. Dyazide was discontinued. At discharge patient will continue with atenolol 50 twice daily and losartan 50 once daily. No need for Dyazide at discharge. Recommend to maintain blood pressure less than 130/80. Further adjustment can be done by her PCP. Patient with history of CVA. Overall stable. Patient with GERD. At discharge we will continue with Protonix 40 mg daily. Diet: Pured Activity: Ad fabrizio Followup: Jacky Vasquez DO, DO [Primary Care Provider] - Time spent managing pt's care (in minutes): 55
[2021-06-29] MEDS: ENOXAPARIN 40 MG/0.4 ML SQ SCH (16:52)
[2021-06-30] MEDS: NACHLORIDE 0.45% 1,000 ML IV SCH (00:20)
[2021-06-30 09:30] VITALS: BP 177/73; TEMP 97
== END 2021-06-30 09:00 | disposition home or self-care (01) | DRG 390 ==
LOC: ER 11:42 → ERHOLD 16:30 → 2ND 17:40
PROVIDERS: ADMIT Hospitalist; ATTEND Hospitalist
DX: K56.609 Unspecified intestinal obstruction, unspecified as to partial versus complete obstruction (principal); N28.9 Disorder of kidney and ureter, unspecified; I10 Essential (primary) hypertension; E83.42 Hypomagnesemia; K21.9 Gastro-esophageal reflux disease without esophagitis; Z20.822 Contact with and (suspected) exposure to COVID-19; Z86.73 Personal history of transient ischemic attack (TIA), and cerebral infarction without residual deficits; Z85.42 Personal history of malignant neoplasm of other parts of uterus
CPT/HCPCS: 36415; 74019; 74177; 74250; 80048; 80053; 80076; 81003; 82565; 82607; 82746; 82947; 83540; 83605; 83690; 83735; 83880; 84132; 84145; 84484; 85025; 85610; 85730; 93005; 96374; 96375; 99285; C9113; J0360; J1650; J2270; J2405; J2543; J3420; J3475; J7030; Q9967; U0003

== ENCOUNTER 2021-08-10 04:12 | Inpatient (IN) | payer OTHER, BC ==
--- OUTSIDE RECORDS SUMMARY | 2021-08-10 04:16 | XMS REPORT | Clinical Summary ---
:1940 Author Organization [facility] MD [facility] Address [address] [place] [address] Care Team Providers Name Role Phone MD [...] tablet by mouth 9 every other day. senna-docusate Take 1 60 tablet 0 Activ e (Senokot-S) 8.6 mg-50 mg tablet by 1 tabletIndications: mouth Malignant neoplasm of twice endometrium daily. triamterene-hydroCHLOROt Take 1 0 Active hiazide (MAXZIDE-25) tablet by 2 37.5 mg-25 mg per tablet mouth daily. hydroCHLOROthiazide daily. 0 07/03/19 Discontinued (HYDRODIURIL) 25 mg 1 (Not Applicable) tablet aspirin 81 mg EC tablet Take 81 [...] Added automatically from request for rae michele [id number] Malignant neoplasm of endometrium 10/30/2020 Last Assessment [...] reoperation, conversion to open surgery, complications rela colt to trochar insertion, need for prolo nged [...] Encounters Date Type Specialty Care Team Description 08/09/2021 Travel 08/08/2021 Travel 08/07/2021 Office Visit Gynecology Shawn Malignant neopl asm of endometrium (Primary Dx); MD Gabriel Vaginal lesion 08/07/2021 Clinical Support Radiation Oncology Hiral Gomez MD 08/07/2021 Orders Only Gynecology Maryuri Bradshaw PA 08/07/2021 Travel 08/05/2021 Ancillary Procedure Radiology Gideon Gomezan t neoplasm MD Hiral of endometrium 08/05/2021 Travel 08/03/2021 Documentation Radiation Oncology Hiral Gomez MD 07/31/2021 Hospital Encounter Radiation Oncology Gabriel Escobar MD 07/28/2021 Orders Only Radiation Oncology Patricia Malignant neoplasm MD Hiral of endometrium (Primary Dx) 07/27/2021 Consult Radiation Oncology Patricia Malignant neoplasm of endometrium; MD Hiral Vaginal lesion 07/27/2021 Documentation Radiation Oncology Hiral Gomez MD 07/27/2021 Documentation Radiation Oncology Hiral Gomez MD 07/27/2021 Travel 07/26/2021 Orders Only Radiation Oncology Manav Malignant neoplasm MD Carolee of endometrium (Primary Dx) 07/17/2021 Telemedicine Gynecology Shawn Malignant neopl asm of endometrium; MD Gabriel Vaginal lesion 07/12/2021 Hospital Encounter Radiology Maryuri Bradshaw, Malignant neoplasm of endometrium; PA Vaginal lesion 07/12/2021 Travel 07/06/2021 Telephone Surgical Oncology Sabine Ramirez RN 07/05/2021 Telephone Nutrition Bindu Nowak RD 07/03/2021 Office Visit Gynecology Shawn, Malignant neopl asm of endometrium (Primary Dx); MD Gabriel Vaginal lesion 07/03/2021 Telephone Nutrition Everardo Nowak RD Consultation Appointment (ca ll regarding nutri tion referral, no answer, no voicemail set u p, sent [employer] message, will contact again catrachita acostasusu this week) 07/03/2021 Travel 12/26/2020 Office Visit Gynecology Shawn, Malignant neopl asm MD Gabriel of endometrium (Primary Dx) 12/26/2020 Travel 12/13/2020 Telephone Surgical Oncology Sabine Ramirez RN 12/08/2020 Orders Only Gynecology Maryuri Bradshaw, Malignant neopl asm of endometrium (Primary Dx); PA Acute tubular n ecrosis; Hyposmolality a nd/or hyponatremia 12/06/2020 Orders Only Gynecology Maryuri Bradshaw, Malignant neopl asm PA of endometrium (Primary Dx) 12/05/2020 Office Visit Gynecology Shawn, Malignant neopl asm MD Gabriel of endometrium 12/05/2020 Travel 12/02/2020 Telephone Gynecology Maryuri Bradshaw, PA 12/02/2020 Orders Only Gynecology Maryuri Bradshaw, Malignant neopl asm PA of endometrium (Primary Dx) 12/01/2020 Multidisciplinary Visit Gynecology Francisco Schroeder, OLIVIA 11/14/2020 Orders Only Gynecology Maryuri Bradshaw, Malignant neopl asm of endometrium (Primary Dx); PA Acute tubular n ecrosis 11/11/2020 Surgery Shawn, ROBOTIC ASSISTE Franny Rios MD TOTAL HYSTERECT ROJAS 11/11/2020 Anesthesia Event Kimberley Cazares MD Mirza, Kazim, DO 11/11/2020 Hospital Encounter Gastrointestinal Branden Escobar neoplasm of endometrium; - Surgery MD Gabriel Essential hypertension; 11/12/2020 Henry, Former heavy to bacco smoker MD Delbert 11/11/2020 Travel 11/10/2020 Office Visit Gynecology Maryuri Bradshaw, Malignant neopl asm PA of endometrium Gabriel Escobar MD 11/10/2020 Clinical Support Covid Maryuri Bradshaw, Encounter f or observation for other suspected exposure to biological agent ruled out (Primary Dx); PA Malignant neoplasm of endometrium; Jules, Essential hyper tension; STACEY Patrick Former heavy to bacco smoker 11/10/2020 Travel 11/03/2020 Anesthesia Event Anesthesiology Rajani Adam NP 11/03/2020 Ancillary Procedure Radiology Maryuri Bradshaw, Malignan t neoplasm of endometrium; PA Essential hyper tension; Former heavy to bacco smoker 11/03/2020 Consult Internal Medicine AugustineMaryuri, Unspecifie d hearing loss, unspecified ear (Primary [...] of endometrium (Primary Dx) 11/01/2020 Orders Only Caty Taylor, SARS-CoV-2 MD Krishna vaccination 10/31/2020 Office Visit Gynecology Shawn, Malignant neopl asm of endometrium (Primary Dx); MD Gabriel Essential hyper tension; Former heavy to bacco smoker 10/31/2020 NPR Patient Access Jay Escobar MD 10/31/2020 Prep for Surgery Gynecology AugustineMaryuri, Malignant n eoplasm of endometrium (Primary Dx); PA Essential hyper tension; Former heavy to bacco smoker 10/31/2020 Travel 10/29/2020 Clinical Support Caty Escobar, Mick C OVID-19 MD Gabriel (Primary Dx) Felicia Bhagat MA 10/29/2020 Travel after 08/10/2020 Immunizations Name Administration Dates Next Due Moderna SARS-CoV-2 Booster Vaccination 05/10/2021 Moderna SARS-CoV-2 Vaccination 08/05/2020, 07/11/2020 Surgical History Surgery Date Site/Laterality Comments BACK SURGERY 03/10/2020 - 04/09/2020 DILATION AND CURETTAGE OF 09/08/2020 - UTERUS 10/07/2020 EXTERNAL EAR SURGERY 06/10/2010 - 06/09/2011 VT LAPAROSCOPY TOT 11/11/2020 N/A Procedure: RO BOTIC HYSTERECTOMY UTERUS >250 ASSISTE D TOTAL GRAM W TUBE/OVARY HYSTERECTOMY; Surgeon: Gabriel Escobar MD ; Location: MAIN O R; Service: SENIOR FINANCIAL CONSULTANT - G YNECOLOGIC ONCOLOGY VT REMOVAL OF 11/11/2020 Bilateral Procedure: ROBOT IC OVARY/TUBE(S) ASSISTED SALPINGO-OOPHORE CTOMY; Surgeon: Gabriel hanson MD; Location: MAIN OR; Service: SENIOR FINANCIAL CONSULTANT - YNECOLOGIC ONCOLOGY VT INTRAOPERATIVE SENTINEL 11/11/2020 Bilateral Proce dure: INTRAOPERATIVE LYMPH NODE ID W DYE LYMPHATIC MA PPING; INJECTION Surgeon: Gabriel hanson MD; Location: MAIN OR; Service: SENIOR FINANCIAL CONSULTANT - G YNECOLOGIC ONCOLOGY VT REMOVAL, PELVIC LYMPH 11/11/2020 Abdomen/Bilateral Proce dure: LIMITED NODES,STAGING LYMPHADENECTOMY FOR STAGING; PELVIC AND PARA-AORTIC LYMP H NODES; Surgeon: Gabriel hanson MD; Location: MAIN OR; Service: SENIOR FINANCIAL CONSULTANT - G YNECOLOGIC ONCOLOGY Medical History Medical [...] file Not on file Not on file COVID-19 Exposure Response Date Recorded In the last month, have you been in contact with No / Unsure 08/09/2021 10:21 AM COMMUNITY DEVELOPMENT AIDE someone who was confirmed or suspected to have Coronavirus / COVID-19? Obstetrics History Para Term AB IAB SAB Ectopic Multiple Living Live Births 7 5 Date Outcome GA Total Labor/2nd/3rd Weight Sex Delivery Anes PTL Steph A 1 A5 Name Clin Labor Para Para Para Para Para Last Filed Vital Signs Vital Sign Reading Time Taken Comments Blood Pressure 121/71 08/07/2021 11:57 AM COMMUNITY DEVELOPMENT AIDE Pulse 73 08/07/2021 11:57 AM COMMUNITY DEVELOPMENT AIDE Temperature 36.9 C (98.4 F) 08/07/2021 11:57 AM COMMUNITY DEVELOPMENT AIDE Respiratory Rate 18 08/07/2021 11:57 AM COMMUNITY DEVELOPMENT AIDE Oxygen Saturation 97% 11/12/2020 11:39 AM CDT Inhaled Oxygen Concentration - - Weight 54.3 kg (119 lb 11.4 oz) 08/07/2021 11:57 AM COMMUNITY DEVELOPMENT AIDE Height 154 cm (5' 0.63") 11/11/2020 10:10 PM CDT Body Mass Index 22.9 11/11/2020 10:10 PM CDT Plan of Treatment Date Type Specialty Care Team Description 08/10/2021 Appointment Radiation Oncology Gabriel Escobar MD [address] [place] [phone] (Wo rk) 08/10/2021 Appointment Radiation Oncology Gabriel Escobar MD [address] [place] [address] [phone] (Wo rk) 08/14/2021 Appointment Radiation Oncology Gabriel Escobar MD [address] [place] [address] [phone] (Wo rk) 08/14/2021 Clinical Support Radiation Oncology Debora Gomez MD [address] [place] [address] [phone] (Wo rk) 08/15/2021 Appointment Radiation Oncology Gabriel Escobar MD [address] [place] [address] [phone] (Wo rk) 08/16/2021 Appointment Radiation Oncology Gabriel Escobar MD [address] [place] [address] [phone] (Wo rk) 08/17/2021 Appointment Radiation Oncology Gabriel Escobar MD [address] [place] [address] [phone] (Wo rk) 08/17/2021 Appointment Radiation Oncology Gabriel Escobar MD [address] [place] [address] [phone] (Wo rk) 08/21/2021 Appointment Radiation Oncology Gabriel Escobar MD [address] [place] [address] [phone] (Wo rk) 08/21/2021 Clinical Support Radiation Oncology Debora Gomez MD [address] [place] [address] [phone] (Wo rk) 08/22/2021 Appointment Radiation Oncology Gabriel Escobar MD [address] [place] [address] [phone] (Wo rk) 08/23/2021 Appointment Radiation Oncology Gabriel Escobar MD [address] [place] [address] [phone] (Wo rk) 08/24/2021 Appointment Radiation Oncology Gabriel Escobar MD [address] [place] [address] [phone] (Wo rk) 08/24/2021 Appointment Radiation Oncology Gabriel Escobar MD [address] [place] [address] [phone] (Wo rk) 08/28/2021 Appointment Radiation Oncology Gabriel Escobar MD [address] [place] [address] [phone] (Wo rk) 08/29/2021 Appointment Radiation Oncology Gabriel Escobar MD [address] [place] [address] [phone] (Wo rk) 08/30/2021 Appointment Radiation Oncology Gabriel Escobar MD [address] [place] [address] [phone] (Wo rk) 08/31/2021 Appointment Radiation Oncology Gabriel Escobar MD [address] [place] [address] [phone] (Wo rk) 09/01/2021 Appointment Radiation Oncology Gabriel Escobar MD [address] [place] [address] [phone] (Wo rk) 09/04/2021 Appointment Radiation Oncology Gabriel Escobar MD [address] [place] [address] [phone] (Wo rk) 09/04/2021 Clinical Support Radiation Oncology Debora Gomez MD [address] [place] [address] [phone] (Wo rk) 09/05/2021 Appointment Radiation Oncology Gabriel Escobar MD [address] [place] [address] [phone] (Wo rk) 09/06/2021 Appointment Radiation Oncology Gabriel Escobar MD [address] [place] [address] [phone] (Wo rk) 09/07/2021 Appointment Radiation Oncology Gabriel Escobar MD [address] [place] [address] [phone] (Wo rk) 09/07/2021 Appointment Radiation Oncology Gabriel Escobar MD [address] [place] [address] [phone] (Wo rk) Health Maintenance Due Date Last Done Comments COVID-19 Vaccination (3 - 06/07/2021 05/10/2021, 08/05/2020 , Inadvertent risk 4-dose series) 07/11/2020 Implants Implanted Type Area Boilers Inspector Device Identifier Shelf Exp iration Model / Date Serial / L ot Titanium Spacers Spine Procedures Procedure Name Priority Date/Time Associated Comments Diagnosis MRI PELVIS W WO Routine 08/05/2021 5:47 Malignant neoplasm Re sults for this CONTRAST - SENIOR FINANCIAL CONSULTANT PM COMMUNITY DEVELOPMENT AIDE of endometrium procedure a re in the results section. 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 HP HMLH1 METHYLATION Routine 07/03/2021 6:22 ANALYSIS INTERPRETATION PM COMMUNITY DEVELOPMENT AIDE AND REPORT PATHOLOGY BIOPSY Routine 07/03/2021 10:49 Malignant neoplasm R esults for this INTERPRETATION AM COMMUNITY DEVELOPMENT AIDE of endometrium procedure are in Vaginal lesion the results section. CALCIUM LEVEL TOTAL Timed Study 11/12/2020 11:06 [...] CDT PATHOLOGY SURGICAL Routine 11/11/2020 5:11 Malignant neoplasm Results for this INTERPRETATION PM CDT of endometrium procedure are in Essential the results hypertension section. Former heavy tobacco smoker LIMITED LYMPHADENECTOMY 11/11/2020 2:52 Malignant bibiana plasm FOR STAGING; PELVIC AND PM CDT of endom etrium PARA-AORTIC LYMPH NODES Essential hypertension Former heavy tobacco smoker Special [...] CHEST ABDOMEN PELVIS Routine 11/03/2020 6:13 Malignant biibana plasm Results for this W CONTRAST PM [...] e are in the results section. after 08/10/2020 Results MRI Pelvis with and without Contrast - SENIOR FINANCIAL CONSULTANT (08/05/2021 5:47 PM COMMUNITY DEVELOPMENT AIDE) Specimen Impressions [id number] - 08/08/2021 8:13 AM COMMUNITY DEVELOPMENT AIDE * Limited assessment due to a combination of lack of vaginal distention and susceptibility artifacts from surgical sutures in the vagina apex. Expected post surgical changes are noted without discrete appearance of a mass lesion. * Small, subcentimeter left obturator lymph node is stable since October 2020, indeterminate. * No other pertinent findings. [This document was created using a voice recognition transcribing system. Incorrect words or phrases may have been missed during proof reading. Please interpret accordingly. Please contact me for clarifications if necessary] Narrative [id number] - 08/08/2021 8:13 AM COMMUNITY DEVELOPMENT AIDE FULL RESULT: Examination: MRI PELVIS W WO CONTRAST - SENIOR FINANCIAL CONSULTANT on 08/05/2021 5:47 PM Clinical History: 81 y.o. 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 Patient underwent TLH, BSO, SLN performed on 11/11/2020. Noted to have a lesion on the vagina a pex on July 09, 2021, positive for re current endometrial cancer. Indication: Presence of suspected mass o r lesion, adenopathy, metastases/ recurrence Comparison: CT scan dated July 12 Technique: Multiplanar multisequence MRI of the pelvis has been performed without and with IV contrast. Patient refused vaginal gel. Findings: The patient is status post hysterectomy, bilateral salpingo-oophorectomy. Susceptibility artifacts are noted in the apex of the vagina from surgical sutures (series 13, images 50-62). No definite enhanc ing mass lesions are visible, in part du e to the technical limitations of this study. Soft tissue thickening is noted in the v aginal apex and at the pelvic peritoneal lining on image 14-17 of series 7. This might be related to recent surgery. No definite evidence of nodularity/tumor deposits are noted in the pelvic peritoneum. There are numerous diverticula noted in the sigmoid colon. No definite mass lesions. There is a 0.7 cm left obturator node on image 25 of series 10. This node is unchanged in size since October 2020 and is indeterminate. . Soft tissue thickening in the right pelvic sidewall on image 19 abram uring up to 0.7 cm destructive present p ostsurgical changes from pelvic lymph node dissection. No discrete adenopathy in the right iliac prince station. No evidence of common iliac adenopathy seen. The urinary bladder appears normal. Procedure Note Matteo Fermin MD - 08/08/2021 FULL RESULT: Examination: MRI PELVIS W WO CONTRAST - SENIOR FINANCIAL CONSULTANT on 08/05/2021 5:47 PM Clinical History: 81 y.o. 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 Patient underwent TLH, BSO, SLN performed on 11/11/2020. Noted to have a lesion on the vagina apex on July 09, 2021, positive for recurrent endometrial cancer. Indication: Presence of suspected mass o r lesion, adenopathy, metastases/ recurrence Comparison: CT scan dated July 12 Technique: Multiplanar multisequence MRI of the pelvis has been performed without and with IV contrast. Patient refused vaginal gel. Findings: The patient is status post hysterectomy, bilateral salpingo-oophorectomy. Susceptibility artifacts are noted in the apex of the vagina from surgical sutures (series 13, images 50-62). No definite enhancing mass lesions are visible, in part due to the technical li mitations of this study. Soft tissue thickening is noted in the v aginal apex and at the pelvic peritoneal lining on image 14-17 of series 7. This might be related to recent surgery. No definite evidence of nodularity/tumor deposits are noted in the pelvic peritoneum. There are numerous diverticula noted in the sigmoid colon. No definite mass lesions. There is a 0.7 cm left obturator node on image 25 of series 10. This node is unchanged in size since October 2020 and is indeterminate. . Soft tissue thickening in the right pelvic sidewall on image 19 measuring up to 0.7 cm destructive present postsurgical changes from pelvic lymph node dissection. No discrete adenopathy in the right iliac prince station. No evidence of common iliac adenopathy seen. The urinary bladder appears normal. IMPRESSION: * Limited assessment due to a combinati on of lack of vaginal distention and susceptibility artifacts from surgical sutures in the vagina apex. Expected postsurgical changes are noted without discrete appearance of a mass lesion. * Small, subcentimeter left obturator l ymph node is stable since October 2020, indeterminate. * No other pertinent findings. [This document was created using a voice recognition transcribing system. Incorrect words or phrases may have been missed during proof reading. Please interpret accordingly. Please contact me for clarifications if necessary] Performing Organization Address City/State/ZIP Code Phon e Number [id number] CT Chest Abdomen Pelvis with Contrast (07/12/2021 1:50 PM COMMUNITY DEVELOPMENT AIDE)Only the most recent of2 resultswithin the time period is included. Specimen Impressions [id number] - 07/15/2021 11:07 AM COMMUNITY DEVELOPMENT AIDE 1. Postsurgical changes from hysterect rojas for endometrial cancer. There is prominence of the vaginal cuff with enhancement, which would be compatible with known recurrence. Correlation with MRI can be obtained as clinically warranted. Small lymph nodes are present without lymphadenopathy. 2. Small bilateral pulmonary nodules t o be observed on follow-up to document stability. Narrative [id number] - 07/15/2021 11:07 AM COMMUNITY DEVELOPMENT AIDE FULL RESULT: Examination: CT CHEST ABDOMEN PELVIS W C ONTRAST, 07/12/2021 1:50 PM Clinical History: Malignant neoplasm of endometrium Vaginal lesion Indication: Metastatic cancer suspected, Pt with endometrioid cancer with new vaginal mass recurrence; eval for spread of disease Comparison: CT CHEST ABDOMEN PELVIS W CO NTRAST, 11/03/2020 6:13 PM Technique: CT of the chest, abdomen, and pelvis was performed with intravenous contrast. Findings: Lesions are denoted by (series/image num leonides).Sample lesions are given for measurement purposes. If additional measurements are desired, an addendum can be issued. Chest: 1. Lungs/Pleura: Small stable scattere d pulmonary nodules remain relatively stable(annotated on the images). Emphysematous changes are noted. Mild fibrotic changes in the lung bases. No evidence of pleural effusion. 2. Visualized neck: Nodularity of th e thyroid, most compatible with goiter, is unchanged. Correlation can be made with thyroid ultrasound as clinically warranted. 3. Mediastinum/Lymph nodes: Small node s are identified. Stable appearance of anterior diaphragmatic node measuring 0.8 cm (). There is no evidence of progressive supraclavicular, axillary, hilar, or mediastinal lymphadenopathy. 4. Heart/Great Vessels: Atheroscleroti c disease of the aorta. The heart is unchanged in size. No pericardial effusion. Ascending aorta measures 3.6 cm. 5. Pulmonary Arteries:No definite evid ence of central filling defect. The main pulmonary artery measures 3 cm. 6. Chest wall: No definite chest wall lesions are seen. 7. Other:No lines or tubes. Abdomen/Pelvis: 1. Hepatobiliary: No focal hepatic les ions are identified. The gallbladder is intact. 2. Spleen: The spleen is unchanged in size. 3. Pancreas:No definite pancreatic les ions are seen. Mild atrophy of the pancreas is noted. 4. Gastrointestinal tract:Diverticulos is is noted. No evidence of bowel dilation. 5. Genitourinary: Patient is status post hysterectomy. There is known biopsy- proven recurrence at the posterior wall of the vagina. This is not well delineated on CT. There is prominence of the vaginal cuff measuring approximately 4.4 cm with mild enhancement in this region posteriorly. Air in this region likely relates to recent biopsy. MRI may better evaluate as clinically warranted. Mild thickening of the left adrenal glan d could relate to hyperplasia. The right adrenal gland is unchanged. Lobulation of the kidneys is likely due to scarring and atrophy. Nonobstructive calculi are seen in the left kidney. The bladder is unremarkable. 6. Lymph nodes/vessels:The previously seen left external iliac node currently measures 0.4 cm (). No evidence of progressive adenopathy. Atherosclerotic disease of the vessels. 7. Other: Perigastric cystic lesion mo st likely represents a lymphangioma (, for example). Bones/Soft Tissues/other: Extensive dege nerative changes are present. Post therapeutic changes are noted. Procedure Note Nadja Alva MD - 07/15/2021 FULL RESULT: Examination: CT CHEST ABDOMEN PELVIS W C ONTRAST, 07/12/2021 1:50 PM Clinical History: Malignant neoplasm of endometrium Vaginal lesion Indication: Metastatic cancer suspected, Pt with endometrioid cancer with new vaginal mass recurrence; eval for spread of disease Comparison: CT CHEST ABDOMEN PELVIS W CO NTRAST, 11/03/2020 6:13 PM Technique: CT of the chest, abdomen, and pelvis was performed with intravenous contrast. Findings: Lesions are denoted by (series/image num leonides).Sample lesions are given for measurement purposes. If additional measurements are desired, an addendum can be issued. Chest: 1. Lungs/Pleura: Small stable scattered pulmonary nodules remain relatively stable(annotated on the images). Emphysematous changes are noted. Mild fibrotic changes in the lung bases. No evidence of pleural effusion. 2. Visualized neck: Nodularity of the thyroid, most compatible with goiter, is unchanged. Correlation can be made with thyroid ultrasound as clinically warranted. 3. Mediastinum/Lymph nodes: Small nodes are identified. Stable appearance of anterior diaphragmatic node measuring 0.8 cm (). There is no evidence of progressive supraclavicular, axillary, hilar, or mediastinal lymphadenopathy. 4. Heart/Great Vessels: Atherosclerotic disease of the aorta. The heart is unchanged in size. No pericardial effusion. Ascending aorta measures 3.6 cm. 5. Pulmonary Arteries:No definite evide nce of central filling defect. The main pulmonary artery measures 3 cm. 6. Chest wall: No definite chest wall l esions are seen. 7. Other:No lines or tubes. Abdomen/Pelvis: 1. Hepatobiliary: No focal hepatic lesi ons are identified. The gallbladder is intact. 2. Spleen: The spleen is unchanged in s ize. 3. Pancreas:No definite pancreatic lesi ons are seen. Mild atrophy of the pancreas is noted. 4. Gastrointestinal tract:Diverticulosi s is noted. No evidence of bowel dilation. 5. Genitourinary: Patient is status post hysterectomy. There is known biopsy- proven recurrence at the posterior wall of the vagina. This is not well delineated on CT. There is prominence of the vaginal cuff measuring approximately 4.4 cm with mild enhanceme nt in this region posteriorly. Air in this region likely relates to recent biopsy. MRI may better evaluate as clinically warranted. Mild thickening of the left adrenal glan d could relate to hyperplasia. The right adrenal gland is unchanged. Lobulation of the kidneys is likely due to scarring and atrophy. Nonobstructive calculi are seen in the left kidney. The bladder is unremarkable. 6. Lymph nodes/vessels:The previously s een left external iliac node currently measures 0.4 cm (). No evidence of progressive adenopathy. Atherosclerotic disease of the vessels. 7. Other: Perigastric cystic lesion mos t likely represents a lymphangioma (151, for example). Bones/Soft Tissues/other: Extensive dege nerative changes are present. Post therapeutic changes are noted. IMPRESSION: 1. Postsurgical changes from hysterecto my for endometrial cancer. There is prominence of the vaginal cuff with enhancement, which would be compatible with known recurrence. Correlation with MRI can be obtained as clinically warranted. Small lymph nodes are present without lymphadenopathy. 2. Small bilateral pulmonary nodules to be observed on follow-up to document stability. Performing Organization Address City/State/ZIP Code Phon e Number [id number] Methylation Analysis Interpretation and Report (07/03/2021 6:22 PM COMMUNITY DEVELOPMENT AIDE) Specimen Narrative This result has an attachment that is no t available. Pathology Biopsy Interpretation (07/03/2021 10:49 AM COMMUNITY DEVELOPMENT AIDE) Addendum 1 The purpose of this addendum is to report the result of biomarker studies. [facility] Addendum electronically The carcinoma has nuclear st aining for estrogen receptor in >75% of cells and for progesterone receptor in 40% of cells. The carcinoma is positive for PAX8 and has patchy staining for p16. A p53 stai signed by Shari campbell shows increased nuclear st aining but with heterogenous intensity; a wild type pattern is favored. 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 Milly cristobal MD on 07/07/2021 at 4 :34 Immunohistochemistry for DNA mismatch repair proteins was performed using formalin-fixed, paraffin-embedded sections of the tumor. The tumor cell nuclei are negative for MLH1 and PMS2. Tumor cell nucle PM i have strong, positive expr ession of MSH2 and MSH6. There is positive expression of all four markers in the non-neoplastic cells, which serves as an internal control. PCR-based MLH1 methylation a nalysis will also be performed. These results will be summarized in a molecular diagnostics report to follow. Tumors with immunohistochemical loss of MLH1 due to MLH1 methy lation are typically conside red sporadic. Tumors with loss of MLH1 in the absence of MLH1 methylation may be secondary to MLH1 mutation, which is associated with Ascencio Syndrome. Diagnosis A: Posterior vaginal wall: [facility] E lectronically MODERATELY DIFFERENTIATED ADENOCARCINOMA. (SEE COMMENT ) signed by Shari Johnson MD on 07/04/2021 at 1 :52 CHASTITY/RS PM Comment The features could be [facility] compatible with recurrent endometrial, endometrioid adenocarcinoma. Confirmatory immunoperoxidase studies and the [employer] CONSULTANT biomarker panel will be performed on this specimen. Results will be reported as an addendum. Gross Description A: [facility] Posterior vaginal wall: [place] tissue fragments (1.5 x 0.8 x 0.4 cm aggregate) entirely submitted in A1. ET Biomarker Tumor: A1 [facility] Block(s) Disclaimer "Some tests reported here [facility] may have been developed and performance characteristics determined by [facility] Pathology and Laboratory Medicine. These tests have not been specifically cleared or approved by the U.S. Food and Drug Administration. If applicable, controls were reviewed and showed appropriate reactivity." Specimen Tissue - Vagina Performing Organization Address City/State/ZIP Code Phon e Number [facility] [place] [address] [address] (ABNORMAL) .Serum Creatinine (11/12/2020 11:06 AM CDT)Only the most recent of3 resultswithin the time period is included. Pathologist Sig nature Creatinine 1.20 (H) 0.51 - 0.95 mg/dL [facility] Specimen Blood Performing Organization Address City/State/ZIP Code Phon e Number [facility] Unless otherwise noted, [place] [address] CENTER all lab tests performed by: Division of Pathology and Laboratory Medicine [address] (ABNORMAL) Glomerular Filtration Rate (11/12/2020 11:06 AM CDT)Only the most recent of3 resultswithin the time period is included. eGFR-AA 49 (L) >=60 [facility] Comment: mL/min/1.73 [facility] Normal eGFR: >= 60 mL/min/1.73 m2 sq. [...] <15 eGFR-FRANK 42 (L) >=60 [facility] Comment: mL/min/1.73 [facility] Normal eGFR: >= 60 mL/min/1.73 m2 sq. [...] failure <15 Specimen Blood Performing Organization Address City/[facility] Phon e Number [facility] Unless otherwise noted, [address] all lab tests performed by: Division of Pathology and Laboratory Medicine [address] (ABNORMAL) Complete Blood Count w/o Differential (11/12/2020 11:06 AM CDT) WBC 7.5 4.0 - 11.0 [facility] K/uL [facility] RBC 2.75 (L) 4.00 - 5.50 [facility] M/uL [facility] Hgb 10.6 (L) 12.0 - 16.0 [facility] gm/dL [facility] Hct 30.2 (L) 37.0 - 47.0 % [facility] MCV 110 (H) 82 - 98 fL [facility] MCH 38.5 (H) 27.0 - 31.0 pg [facility] MCHC 35.1 31.0 - 36.0 [facility] gm/dL [facility] RDW-SD 52.3 (H) 35.1 - 46.3 fL [facility] RDW-CV 13.1 12.0 - 15.5 % [facility] Platelet count 144 140 - 440 K/uL [facility] MPV 11.2 (H) 4.0 - 10.4 fL [facility] INRBC 0.0 <=0.0 % [facility] Comment: CANCER CENTER The INRBC (instrument NRBC) value reflects the enumera tion of nucleated red blood cells contained in a 200uL samp le of whole blood analyzed by the instrument. This value may differ from the NRBC value reported in a manual differ ential, which is based on a 100 cell differential. Specimen Blood Performing Organization Address City/[facility] Phon e Number [facility] Unless otherwise noted, [address] all lab tests performed by: Division of Pathology and Laboratory Medicine [address] BUN (11/12/2020 11:06 AM CDT)Only the most recent of3 resultswithin the time period is included. Pathologist Sig nature BUN 14 6 - 23 mg/dL [facility] Specimen Blood Performing Organization Address City/[facility] Code Phon e Number [facility] Unless otherwise noted, [address] all lab tests performed by: Division of Pathology and Laboratory Medicine [address] (ABNORMAL) Glucose Level (11/12/2020 11:06 AM CDT)Only the most recent of2 resultswithin the time period is included. Glucose Level 151 (H) 70 - 99 mg/dL [facility] Comment: CANCER CENTER Effective 01/04/16, the gluco se reference intervals have been updated based on [place] Diabetes [employer] guidelines (Standards of Medical Care [...] for diabetes Specimen Blood Performing Organization Address [facility] Phon e Number [facility] Unless otherwise noted, [address] all lab tests performed by: Division of Pathology and Laboratory Medicine [address] Calcium Level (11/12/2020 11:06 AM CDT)Only the most recent of2 resultswithin the time period is included. Pathologist Sig nature Calcium Lvl 8.6 8.4 - 10.2 mg/dL [facility] NTER Specimen Blood Performing Organization Address City/[facility] Phon e Number [facility] Unless otherwise noted, [address] all lab tests performed by: Division of Pathology and Laboratory Medicine [address] (ABNORMAL) Electrolyte Panel (11/12/2020 11:06 AM CDT)Only the most recent of2 resultswithin the time period is included. Pathologist Sig nature Sodium Lvl 131 (L) 136 - 145 mEq/L [facility] Potassium Lvl 4.2 3.5 - 5.1 mEq/L [facility] Chloride 95 (L) 98 - 107 mEq/L [facility] CO2 24 22 - 29 mEq/L [facility] Anion Gap 12 4 - 14 mEq/L [facility] Specimen Blood Performing Organization Address City/[facility] Phon e Number [facility] Unless otherwise noted, [address] all lab tests performed by: Division of Pathology and Laboratory Medicine [address] [facility] Glucose, Random (11/12/2020 12:32 AM CDT) Glucose Random 192 70 - 199 mg/dL [facility] Comment: CANCER CENTER Effective 01/04/16, the gluco se reference intervals have been updated based on [place] Diabetes [employer] guidelines (Standards of Medical Care [...] for diabetes Specimen Blood Performing Organization Address City/[facility] Phon e Number [facility] Unless otherwise noted, [address] all lab tests performed by: Division of Pathology and Laboratory Medicine [address] (ABNORMAL) Anion Gap (11/12/2020 12:32 AM CDT) Pathologist Sig nature Anion Gap 16 (H) 4 - 14 mEq/L [facility] Specimen Blood Performing Organization Address City/[facility] Phon e Number [facility] Unless otherwise noted, [address] all lab tests performed by: Division of Pathology and Laboratory Medicine [address] (ABNORMAL) .CBC (11/12/2020 12:32 AM CDT)Only the most recent of3 resultswithin the time period is included. WBC 6.3 4.0 - 11.0 [facility] K/[facility] CENTER RBC 2.86 (L) 4.00 - 5.50 [facility] M/uL [facility] CENTER Hgb 10.9 (L) 12.0 - 16.0 [facility] gm/dL [facility] Hct 31.0 (L) 37.0 - 47.0 % [facility] MCV 108 (H) 82 - 98 fL [facility] MCH 38.1 (H) 27.0 - 31.0 pg [facility] MCHC 35.2 31.0 - 36.0 [facility] gm/dL [facility] RDW-SD 51.6 (H) 35.1 - 46.3 fL [facility] RDW-CV 12.9 12.0 - 15.5 % [facility] Platelet count 124 (L) 140 - 440 K/uL [facility] MPV 11.0 (H) 4.0 - 10.4 fL [facility] INRBC 0.0 <=0.0 % [facility] Comment: [facility] The INRBC (instrument NRBC) value reflects the enumera tion of nucleated red blood cells contained in a 200uL samp le of whole blood analyzed by the instrument. This value may differ from the NRBC value reported in a manual differ ential, which is based on a 100 cell differential. Specimen Blood Performing Organization Address City/State/ZIP Code Phon e Number [facility] Unless otherwise noted, [place] [address] [place] all lab tests performed by: Division of Pathology and Laboratory Medicine [address] (ABNORMAL) Differential (11/12/2020 12:32 AM CDT)Only the most recent of3 resultswithin the time period is included. Neutrophil % 82.7 (H) 42.0 - 66.0 % [facility] Lymphocyte % 10.3 (L) 24.0 - 44.0 % [facility] Monocyte % 6.3 2.0 - 7.0 % [facility] Eosinophil % 0.0 (L) 1.0 - 4.0 % [facility] Basophil % 0.2 0.0 - 1.0 % [facility] IGRE % 0.5 (H)Comment: 0.0 - 0.4 % [facility] IGRE % count [facility] [place] includes Metamyelocytes, Myelocytes, and Promyelocytes. Neutrophil Abs 5.25 1.70 - 7.30 [facility] K/uL [facility] Lymphocyte Abs 0.65 (L) 1.00 - 4.80 [facility] Monocyte Abs 0.40 0.08 - 0.70 [facility] Eosinophil Abs 0.00 (L) 0.04 - 0.40 [facility] Basophil Abs 0.01 0.00 - 0.10 [facility] IG Abs 0.03 0.00 - 0.04 [facility] Specimen Blood Performing Organization Address City/[facility]/ZIP [facility] Phon e Number [facility] Unless otherwise noted, [address] all lab tests performed by: Division of Pathology and Laboratory Medicine [address] (ABNORMAL) Sodium Level (11/12/2020 12:32 AM CDT) Pathologist Sig nature Sodium Lvl 135 (L) 136 - 145 mEq/L [facility] TER Specimen Blood Performing Organization Address [facility] Phon e Number [facility] Unless otherwise noted, [address] all lab tests performed by: Division of Pathology and Laboratory Medicine [address] Potassium Level (11/12/2020 12:32 AM CDT) Pathologist Sig nature Potassium Lvl 3.7 3.5 - 5.1 mEq/L [facility] Specimen Blood Performing Organization Address [facility] Phon e [facility] Unless otherwise noted, [address] all lab tests performed by: Division of Pathology and Laboratory Medicine [address] (ABNORMAL) Magnesium Level (11/12/2020 12:32 AM CDT) Pathologist Sig nature Magnesium 1.1 (L) 1.6 - 2.6 mg/dL [facility] TER Specimen Blood Performing Organization Address City/[facility] Phon e Number [facility] Unless otherwise noted, [address] all lab tests performed by: Division of Pathology and Laboratory Medicine [address] (ABNORMAL) Chloride Level (11/12/2020 12:32 AM CDT) Pathologist Sig nature Chloride 96 (L) 98 - 107 mEq/L [facility] ER Specimen Blood Performing Organization Address City/[facility]/ZIP [facility] Phon e Number [facility] Unless otherwise noted, [address] all lab tests performed by: Division of Pathology and Laboratory Medicine [address] [place], [place] [address] Carbon Dioxide Level (11/12/2020 12:32 AM CDT) Pathologist Sig nature CO2 23 22 - 29 mEq/L [facility] Specimen Blood Performing Organization Address [facility] Phon e Number [facility] Unless otherwise noted, [address] all lab tests performed by: Division of Pathology and Laboratory Medicine [address] [place] [address] Partial Thromboplastin Time (11/11/2020 9:38 PM CDT)Only the most recent of2 resultswithin the time period is included. Pathologist Sig nature aPTT 30.4 24.7 - 36.8 second(s) [facility] CENTER Specimen Blood Performing Organization Address [facility] Phon e Number [facility] Unless otherwise noted, [address] all lab tests performed by: Division of Pathology and Laboratory Medicine [address] [place] [address] (ABNORMAL) Prothrombin Time with INR (11/11/2020 9:38 PM CDT)Only the most recent of2 resultswithin the time period is included. Pathologist Sig nature PT 14.7 (H) 11.5 - 13.9 [facility] second(s) CENTER INR 1.23 (H) 0.90 - 1.10 [facility] Specimen Blood Performing Organization Address [facility] Phon e Number [facility] Unless otherwise noted, [address] all lab tests performed by: Division of Pathology and Laboratory Medicine [address] [place] [address] Pathology Surgical Interpretation (11/11/2020 5:11 PM CDT) Submitted Malignant neoplasm of [facility] Clinical History endometrium [C54.1]; Essential hypertension [I10]; Former heavy tobacco smoker [Z87.891] Diagnosis [facility] Electronically A: signed by Christiano domínguez [...] was performed, no metastatic carcinoma is identified. [facility] #2. Immunohistochemical stai ngozi of tumor cell is positive for PAX8, CK-7 (focal), ER (focal), VT (focal) and negative for WT-1. The immunohistochemical staining for p53 is wild type, supporting the diagnosis rendered above. Synoptic ENDOMETRIUM (ENDOMETRIUM: HYSTERECTOMY - All Specime ns) [facility] Checklist 8th Edition - Protocol [...] Pelvic Nodes Examined: 4 Number of Pelvic [place] Nodes Examined: 4 Total Number of Para-aortic Nodes Examined: 0 PATHOLOGIC STAGE CLASSIFICATION (pTNM, AJCC 8th Editio n) Primary Tumor (pT): pT1a Regional Lymph Nodes Modifier: (sn) Regional Lymph Nodes (pN): pN0 FIGO STAGE FIGO Stage: IA Gross Description A: [facility] Left obturator sentinal lymp h node [...] tumor [facility] [employer] T: E12; N: E2 [facility] Block(s) Disclaimer "Some tests reported here [facility] may have been developed and performance characteristics determined by [facility] Pathology and Laboratory Medicine. These tests have not been specifically cleared or approved by the U.S. Food and Drug Administration. If applicable, controls were reviewed and showed appropriate reactivity." Specimen Tissue - [place] Lymph Node Tissue - [place] Lymph Node Tissue - Lymph Node(s), Right, Obturator Tissue - [place] Lymph Node Tissue - Uterus, Cervix, Right Fallopian Tube, Right Ovary Performing Organization Address City/[facility]/ZIP Code Phon e Number [facility] [place] [address] [address] Expiration Date (11/11/2020 2:29 PM CDT)Only the most recent of2 results within the time period is included. Pathologist Sig nature T & S Expiration 11/14/2020 [facility] Specimen Blood Performing Organization Address [facility] Phon e Number [facility] Unless otherwise noted, [address] all lab tests performed by: Division of Pathology and Laboratory Medicine [facility] [address] TMP Interpretation Antibody Screen Negative (11/11/2020 2:29 PM CDT)Only the most recent of2 resultswithin the time period is included. TMP Auto Neg ABSC At the present time, patien t plasma shows no evidence of RBC alloantibodies. [facility] Interp Comment: CANCER CENTER JANETT BROWNLEE, Dictated by: JANETT BROWNLEE, Dictated Date/Time: 11.12.19 21 16:29 PM CDT Transcribed Date/Time: 11.11.2020 16:29 PM CDT Electronically Signed By: JANETT BROWNLEE, on 021 16:29 PM Specimen Blood Performing Organization Address City/[facility] Phon e Number [facility] Unless otherwise noted, [address] all lab tests performed by: Division of Pathology and Laboratory Medicine [facility] [address] ABORh (11/11/2020 2:29 PM CDT)Only the most recent of2 resultswithin the time period is included. Pathologist Sig nature ABORh. B POS [facility] Specimen Blood Performing Organization Address City/State/ZIP Code Phon e Number [facility] Unless otherwise noted, [address] all lab tests performed by: Division of Pathology and Laboratory Medicine [facility] Antibody Screen (11/11/2020 2:29 PM CDT)Only the most recent of2 resultswithin the time period is included. Pathologist Sig nature ABSC. Negative ABSC [facility] CENTE R Specimen Blood Performing Organization Address City/State/ZIP Code Phon e Number [facility] Unless otherwise noted, [address] all lab tests performed by: Division of Pathology and Laboratory Medicine [address] [place] [address] COVID-19 (SARS-CoV-2) PCR-Asymptomatic [facility] (11/10/2020 12:00 PM CDT)Only the most recent of2 resultswithin the time period is included. COVID19 (SARS Not Detected Not Detected [facility] CoV-2) Result Comment: [facility] This test is a qualitative r everse-transcriptase [...] were verified by the Microbiology Laboratory at [facility], CLIA Accreditation #: [id number] and CAP Accreditation #: [id number]. Results must be interpreted within the context [...] coby ting if clinically indicated. COVID19 SARS COOK HELPER PASTRY Swab [facility] CANCER CENTER COVID19 SARS Pre-OR Procedure [facility] CENTER Specimen Nasopharyngeal Swab Performing Organization Address City/State/ZIP Code Phon e Number [facility] Unless otherwise noted, [address] all lab tests performed by: Division of Pathology and Laboratory Medicine [address] [place] [address] Confirm ABORh (10/31/2020 10:59 AM CDT) Pathologist Sig [facility] ABORh Confirm. B POS [facility] ER Specimen Blood Performing Organization Address City/[facility] Phon e Number [facility] Unless otherwise noted, [address] all lab tests performed by: Division of Pathology and Laboratory Medicine [address] [place] [address] (ABNORMAL) Urinalysis with Microscopic (10/31/2020 10:57 AM CDT) Pathologist Sig nature UA WBC 0-2Comment: All 0 - 2 /HPF [facility] components of UA Microscopic Exam performed at [facility], [address] [place] [address] UA RBC NOT SEENComment: As 0 - 2 /HPF [facility] [place] part of the UA Microscopic Exam performed at [facility], [address] [place] [address] UA Mucous TRACEComment: As part Not Seen-Trace [facility] [place] of the UA Microscopic /HPF Exam performed at [facility], [address] [place] [address] UA Bacteria OCCComment: As part of NOT SEEN /HPF [facility] [place] the UA Microscopic Exam performed at [facility], [address] [place] [address] UA Squam Epi OCCComment: As part of None-Occasional [facility] the UA Microscopic /HPF Exam performed at [facility], [address] [place] [address] UA Trans Epi OCC (A)Comment: As NOT SEEN /HPF [facility] part of the UA Microscopic Exam performed at [facility], [address] [place] [address] UA Hyal Cast 0-2Comment: As part of 0 - 2 /LPF [facility] the UA Microscopic Exam performed at [facility], [address] [place] [address] Specimen Urine Narrative [facility] - 10/31/2020 11:29 AM CDT Some reporting parameters within the Urinalysis test have changed due to the implementation of new instrumentation in the [facility], allowing greater sensitivity of measurement. Urinalysis results rep orted by the [facility] using existing instrumentation, as well as Urinalysis t esting performed manually or by backup methodology at the [facility] will remain relatively unchanged. New reporting parameters and units will now be reported for all seattlees. Performing Organization Address City/State/ZIP Code Phon e Number [address] (ABNORMAL) Urinalysis with Microscopic (10/31/2020 10:57 AM CDT) UA Color Light YellowComment: Straw-Yellow [facility] All components of UA Macroscopic performed at [facility], [address] [place] [address] UA Appear ClearComment: As part Clear [facility] of the UA Macroscopic performed at [facility], [address] [place] [address] UA Glucose NEGComment: As part NEG mg/dL [facility] of the UA Macroscopic performed at [facility], [address] [place] [address] UA Bili NEGComment: As part NEG [facility] of the UA Macroscopic performed at [facility], [address] [place] [address] UA Ketones NEGComment: As part NEG mg/dL [facility] [place] of UA Macroscopic or as an individual orderable testing performed at [facility], [address] [place] [address] UA Spec Grav 1.004Comment: As part 1.003 - 1.035 [facility] [place] of UA Macroscopic or as an individual orderable testing performed at [facility], [address] [place] [address] UA Blood NEGComment: As part NEG [facility] [place] of the UA Macroscopic performed at [facility], [address] [place] [address] UA pH 5.0Comment: As part 5.0 - 9.0 [facility] [place] of UA Macroscopic or as an individual orderable testing performed at [facility], [address] [place] [address] UA Protein NEGComment: As part NEG mg/dL [facility] [place] of the UA Macroscopic performed at [facility], [address] [place] [address] UA Urobilinogen NEGComment: As part NEG [facility] [place] of the UA Macroscopic performed at [facility], [address] [place] [address] UA Nitrite NEGComment: As part NEG [facility] [place] of the UA Macroscopic performed at [facility], [address] [place] [address] UA Leuk Est Trace (A)Comment: As NEG [facility] [place] part of the UA Macroscopic performed at [facility], [address] [place] [address] Specimen Urine Performing Organization Address City/[facility] Phon e Number [facility] [address] (ABNORMAL) Urine Culture (10/31/2020 10:57 AM CDT) Final Report <10,000 cfu/ml Normal site samia present. [facility] Generally of low significance. [facility] Correlate with clinical data and culture history. (A) Path Review - The results have been review ed and electronically signed by Pathologist: [facility] Urine LILI BARBOZA MD #[id number] [facility] R (A) Specimen Urine, Clean Catch Performing Organization Address City/[facility] Phon e Number [facility] CANCER Unless otherwise noted, [place] [address] [place] all lab tests performed by: Division of Pathology and Laboratory Medicine [address] [place] [address] [place] Hepatitis C Virus Ab Screen, Reflex HCV PCR (10/31/2020 10:47 AM CDT) Pathologist [facility] HCV Ab Screen-Nugent Negative Negative [facility] Comment: [facility] CENTER Bzankx-xg-ykisyv ratio is <1.00. Test Performed by: [facility] [address] [place] [address] Sr. Director: Rolando Cain M.D. Ph.D.; CLIA# [id number] Specimen Blood Performing Organization Address City/[facility]/ZIP Code Phon e Number [facility] CANCER Unless otherwise noted, [place] [address] CENTER all lab tests performed by: Division of Pathology and Laboratory Medicine [address] [place] [address] HIV 1/2 Ag&Ab Path Interp (10/31/2020 10:47 AM CDT) [facility] HIV 1/2 Ag&Ab Negative for HIV-1 antigen a nd HIV-1/HIV-2 antibodies. No laboratory evidence of HIV infection. If acute HIV infection is suspected, consider testing for HIV-1 RNA. [facility] Interp Comment: CENTER ROD NEVAREZ MD - [id number] Dictated by: ROD NEVAREZ MD - [id number] Dictated Date/Time: 11.02.19 8:58 AM CDT Transcribed Date/Time: 11.01.2020 8:58 AM CDT Electronically Signed By: ROD NEVAREZ MD - [id number] on 11.01.2020 8:58 AM C Specimen Blood Performing Organization Address City/[facility] Phon e Number [facility] [address] [place] [id number] HIV-1/2 Antigen and Antibodies, Fourth Generation (10/31/2020 10:47 AM CDT) [facility] HIV 1/2 Ag & Ab, Non Reactive Non Reactive [facility] 4th Gen Comment: CENTER Performed at: [facility] Blood Donor Center [address] [place] [phone] Specimen Blood Performing Organization Address City/[facility] Phon e Number [facility]OR [address] [address] TMP Interpretation Exception PreOp Expiration (10/31/2020 10:47 AM CDT) TMP Exception This patient does not quali fy for a 30 day preoperative type and screen extension due to presence of known RBC alloantibody, possible recent exposure to blood or blood-derived products, or incomplete i [facility] nformation submitted from the preoperative clinic. [facility] CENTER A new type and screen should be drawn within 72 hours of the procedure if blood needs are anticipated. Delays in blood availability are possible if the sample is drawn immediately prior to surgery. Comment: MD Ana Lilia MIDDLETON Dictated by: MD Ana Lilia MIDDLETON Dictated Date/Time: 11.05.19 10:22 AM CDT Transcribed Date/Time: 11.04.2020 10:22 AM CDT Electronically Signed By: MD Ana Lilia MIDDLETON on 11.04.2020 10:22 AM Specimen Blood Performing Organization Address City/State/ZIP Code Phon e Number [facility] CANCER Unless otherwise noted, [place] [address] [place] all lab tests performed by: Division of Pathology and Laboratory Medicine [facility] Riceisauro Carroll Fractionated Bilirubin (10/31/2020 10:47 AM CDT) Bili Total 0.5 <=1.2 mg/dL [facility] Comment: Indocyanine Green (ICG) may cause falsely elevated bilirubin results. Total and direct bilirubin must not be measured from samples containing indocyanine green. False elevation of total shaw irubin can be seen in patients with IgG concentrations above 28 g/L. Testing performed at [facility], [address] [place] [phone] Bili Direct 0.2 <=0.3 mg/dL [facility] Comment: Indocyanine Green (ICG) may cause falsely elevated bilirubin results. Total and direct bilirubin must not be measured from samples containing indocyanine green. Testing performed at [facility], [address] [place] [id number] Bili Indirect 0.3Comment: Testing 0.0 - 0.9 [facility] performed at [facility] mg/dL [facility], [address] [place] [address] Specimen Blood Performing Organization Address City/[facility]/ZIP Code Phon e Number [address] Hepatitis C Virus Antibody (10/31/2020 10:47 AM CDT) Pathologist Sig [facility] HCVAb Received See NoteComment: [facility] HCVAb was sent to a CANCER CENTER reference lab for testing. Expect results on Hepatitis C Virus Ab Screen w/Reflex HCV PCR within 96 hours. Specimen Blood Performing Organization Address City/[facility] Code Phon e Number [facility] CANCER Unless otherwise noted, [address] all lab tests performed by: Division of Pathology and Laboratory Medicine [address] [place] [address] [place] 125 (10/31/2020 10:47 AM CDT) Pathologist Sig [facility] [place] 125 15.5 <=38.0 U/mL [facility] Comment: Results greater than 11,500. 0 U/L may not be reliable due to matrix effect with extended dilution as it exceeds the fireworks maker s recommended limit. Caution should be exercised when interpreting such values and done in conjunction with clinical context. Reference intervals are not available for male patients. Results should be interpreted in conjunction with clinical context. Testing performed at [facility], [address] [place] [address] Specimen Blood Performing Organization Address City/[facility]/ZIP Code Phon e Number [address] (ABNORMAL) ALT (10/31/2020 10:47 AM CDT) Pathologist Sig nature ALT 34 (H)Comment: Testing <=33 U/L [facility] performed at [facility], [address] [place], [place] [address] Specimen Blood Performing Organization Address City/State/ZIP Code Phon e Number [address] (ABNORMAL) Aspartate Aminotransferase (10/31/2020 10:47 AM CDT) Pathologist Sig [facility] AST 56 (H)Comment: Testing <=32 U/L [facility] performed at [facility], [address] [place] [address] Specimen Blood Performing Organization Address City/[facility]/ZIP Code Phon e Number [address] Total Protein (10/31/2020 10:47 AM CDT) Pathologist Sig katie Total Protein 6.9Comment: Testing 6.4 - 8.3 g/dL [facility] performed at [facility], [address] [place] [address] Specimen Blood Performing Organization Address City/[facility]/ZIP Code Phon e Number [address] Alkaline Phosphatase (10/31/2020 10:47 AM CDT) Pathologist Sig katie Alk Phos 87Comment: Testing 35 - 104 U/L [facility] performed at [facility], [address] [place] [address] Specimen Blood Performing Organization Address City/[facility]/ZIP Code Phon e Number [address] Hemoglobin A1c (10/31/2020 10:47 AM CDT) Pathologist Sig katie A1C 5.2 4.3 - 5.6 % [facility] Comment: HbA1c values >=6.5% are diagnostic of diabetes mellitu s. Diagnosis should be confirmed by repeat testing. Therapeutic Action suggested: >8.0% HbA1c; Goal of therapy: <7.0% HbA1c Testing Performed at [facility], [address] [place] [address] Specimen Blood Performing Organization Address City/[facility]/ZIP Code Phon e Number [address] Albumin Level (10/31/2020 10:47 AM CDT) Pathologist Sig katie Albumin Lvl 4.6Comment: Testing 3.5 - 5.2 gm/dL [facility] performed at [facility], [address] [place] [address], [id number] Specimen Blood Performing Organization Address City/State/ZIP Code Phon e Number [facility] [place] [address] [facility] EKG, 12-Lead (Scheduled) (10/31/2020) Specimen Narrative This result has an attachment that is no t available. Performing Organization Address City/State/ZIP Code Phon e Number [facility] after 08/10/2020 Insurance Payer Benefit Plan Subscriber ID Effective Phone Address Typ e / Group Dates MEDICARE MEDICARE PART [id number] 2006-Prese [phone] [place] Medicare A AND B nt 82 [employer] [address] [place] [phone] [employer] [place] PPO [id number] 2020-Prese [address] [place]PO [place] POS [place] 8[address] [place] [address] Advance Directives Code Status Date Activated Date Inactivated Comments Full Code 11/11/2020 9:48 PM 11/12/2020 3:54 PM Care Teams Outdoor Guide Relationship Specialty Start Date End Date Gabriel Escobar MD PCP - General Gynecological Oncology 10/05/[address] [place] [address] Claudia Garibay PCP - External Obstetrics/Gynecology 10/05/20 MD Mushtaq Referring [address] [facility] [address] [place] [address]
--- OUTSIDE RECORDS SUMMARY | 2021-08-10 04:18 | XMS REPORT | Continuity of Care Document ---
:1940 Author Organization [facility] t Address [address] [place] [address] Care Team Providers Name Role Phone [phone] Primary Care Physician Unavailable SYSTEM, NOT IN Attending Clinician Unavailable Morteza Garibay Attending Clinician Unavailable KADEN Attending Clinician Unavailable Kaden VIZCAINO Attending Clinician HALEY Attending Clinician Unavailable Haley VIZCAINO Attending Clinician Danuta BETH Attending Clinician Manav VIZCAINO Attending Clinician DANUTA Attending Clinician Unavailable Ashley IBARRA, L Attending Clinician She MOTTA, C Attending Clinician Unavailable BEV Attending Clinician Unavailable Alexandre BAKER, Nestor. Attending Clinician HENRY Attending Clinician Unavailable Henry VIZCAINO Attending Clinician Sage VIZCAINO Attending Clinician Escobar CANO Attending Clinician Jules IBARRA Attending Clinician Unavailable Jair BAKER M Attending Clinician Mukul VIZCAINO Attending Clinician Darnell SPANISH INTERPRETER/TRANSLATOR, M Attending Clinician Brandon VIZCAINO Attending Clinician Leola GODINEZ Attending Clinician Only, Test Attending Clinician Unavailable Kathe VIZCAINO Attending Clinician Doctor Unassigned, Name Attending Clinician Unavailable KAVEH Attending Clinician Unavailable HENRY Admitting Clinician Unavailable Payers Payer Name Policy Type Policy Number Effective Date Expiration Date Karen meng MEDICARE PART A [id number] 2006 AND B 00:00:00 [place] POS [id number] 2020 00:00:00 Problems Condition Condition Condition Status Onset Resolution Last Treating Co mments Source Name Details Category Date Date Treatment Clinician Date Former Former Disease Active Overview: heavy heavy - Formattin Anderso tobacco tobacco 00:00: g of this n smoker smoker 00 note might be different from the original. Added automatic ally from request for surgery [id number] Malignant Malignant Disease Active Last neoplasm neoplasm 10-30 Assessmen And erso of of 00:00: t [...] answered. 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 07-07 Luigi o disease disease 00:00: n involving involving 00 multiple multiple joints joints Essential Essential Disease Active 2015-06 hypertensi hypertensi 07-07 An blancaso on on 00:00: n 00 Palmar Palmar Disease Active 2015-06 Univers fasciitis fasciitis 07-07 ity of 00:00: [address] Branch Bilateral Bilateral Disease Active 2015-06 Uni vers hand pain hand pain 07-07 ity of 00:00: [address] Branch Inflammato Inflammato Disease Active 2015-06 U nivers ry ry 07-07 ity of osteoarth[place] [facility] [facility] [facility] Allergies, Adverse Reactions, Alerts Allergy Allergy Status Severity Reaction(s) Onset Inactive Treating Comm ents Source Name Type Date Date Clinician No Known DA Active [facility] [place] [facility] d [facility] No Known DA Active U [facility] All[facility]ie -20 [place] [facility] 00:[facility]: d 00 [facility] NO KNOWN Drug Active Univers ALLERGIE Class ity of S [facility] Social History Social Habit Start Date Stop Date Quantity Comments Source History of tobacco Current smoker MD Jackson use Exposure to Not sure MD Jackson SARS-CoV-2 (event) Alcohol Comment 2 glasses of Univers ity of wine per night [facility] Alcohol intake 2021-08-07 2021-08-07 Current drinker MD Debora louis 00:00:00 00:00:00 of alcohol (finding) Cigarettes smoked 2020-10-31 2020-10-31 MD Darion de current (pack per 00:00:00 00:00:00 day) - Reported Tobacco use and 2020-10-31 2020-10-31 Smokeless MD Meyers on exposure 00:00:00 00:00:00 tobacco non-user Cigarette 2016-05-07 2016-05-07 University of pack-years 00:00:00 00:00:00 [facility] Sex Ass[birth year] At [birth year] MD Meyers on 00:00:00 00:00:00 Smoking Status Start Date Stop Date Source Ex-smoker 2020-10-31 00:00:00 2020-10-31 00:00:00 MD Charles son Current every day 2016-05-07 00:00:00 [facility] Medications Ordered Filled Start Stop Current Ordering Indication Dosage Frequency Signature Comments Components Source Medication Medication Date Date Medication? Clinician (SIG) Name Name triamterene Yes 1{tbl} Take 1 MD -hydroCHLOR 1-03 tablet by And erso Othiazide 00:00: mouth n (MAXZIDE-25 00 daily. 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 acetaminoph 2020- No Malignant 500mg Take 1 MD en (Tylenol 11-12- neoplasm of tablet Anderso Extra 00:00: 00:00 endometrium (500 mg) n Strength) 00 :00 by mouth 500 mg every 6 tablet (six) hours. 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 aspirin 81 No 81mg Take 81 mg MD mg EC -27 05-27 by mouth Anderso tablet 13:47: 00:00 daily. n 56 :00 hydroCHLORO 0 2021- No daily. MD thiazide 5-18 -24 Anderso (HYDRODIURI 00:00: 00:00 n L) 25 mg 00 :00 tablet ipratropium Yes 3 (three) M D [...] 00:00: mouth [place] 00 daily. Medical Branch Immunizations Ordered Immunization Filled Immunization Date Status Commen ts Source Name Name Alexandro SARS-CoV-2 2021-05-10 Completed MD And erson Booster Vaccination 00:00:00 Alexandro SARS-CoV-2 2020-08-05 Completed MD And erson Vaccination 00:00:00 Alexandro SARS-CoV-2 2020-07-11 Completed MD And erson Vaccination 00:00:00 Vital Signs Vital Name Observation Time Observation Value Comments Source HEIGHT 2020-11-11 22:10:00 154 cm WEIGHT 2020-11-11 22:10:00 62.6 kg HEIGHT 2020-11-11 22:10:00 154 cm WEIGHT 2020-11-11 22:10:00 62.6 kg WEIGHT 2020-11-10 12:28:00 62.2 kg WEIGHT 2020-11-10 12:28:00 62.2 kg Systolic blood pressure 2021-08-07 17:57:00 121 mm[Hg] MD Jackson Diastolic blood pressure 2021-08-07 17:57:00 71 mm[Hg] MD Jackson Heart rate 2021-08-07 17:57:00 73 /min MD Melvin nash Body temperature 2021-08-07 17:57:00 36.89 Angela MD Tunde morocho Respiratory rate 2021-08-07 17:57:00 18 /min MD Tunde morocho Body weight 2021-08-07 17:57:00 54.3 kg MD Melvin nash BMI 2021-08-07 17:57:00 22.90 kg/m2 MD Melvin nash Oxygen saturation in 2020-11-12 16:39:53 97 /min MD Jackson Arterial blood by Pulse oximetry Body height 2020-11-12 03:10:00 154 cm MD Melvin nash Procedures Procedure Date / Time Performing Clinician Source Performed MRI PELVIS W WO CONTRAST - 2021-08-05 23:47:00 Hiral De Leon ATTORNEY LAW CLERK CT CHEST ABDOMEN PELVIS W 2021-07-12 19:50:13 Maryuri Bradshaw MD CONTRAST HP HMLH1 METHYLATION 2021-07-04 00:22:00 Shari Johnson ANALYSIS INTERPRETATION AND REPORT PATHOLOGY BIOPSY 2021-07-03 16:49:00 Maryuri Bradshaw MD INTERPRETATION COMPLETE BLOOD COUNT W/ 2020-11-12 16:06:00 Eyal Tatum MD BASIC METABOLIC PANEL, 2020-11-12 16:06:00 Pro Tatum MD CALCIUM TOTAL Bravo GLUCOSE LEVEL 2020-11-12 16:06:00 Pro Tatum BLOOD UREA NITROGEN 2020-11-12 16:06:00 Pro Tatum MD ELECTROLYTE PANEL 2020-11-12 16:06:00 Pro Tatum MD SERUM CREATININE 2020-11-12 16:06:00 Pro Tatum MD .GLOMERULAR FILTRATION 2020-11-12 16:06:00 Pro Tatum MD CALCIUM LEVEL TOTAL 2020-11-12 16:06:00 Pro Tatum MD COMPLETE BLOOD COUNT W/ 2020-11-12 05:32:00 Rashida Steele MD DIFFERENTIAL SODIUM LEVEL 2020-11-12 05:32:00 Rashida Steele MD CARBON DIOXIDE LEVEL 2020-11-12 05:32:00 Rashida Steele MD CHLORIDE LEVEL 2020-11-12 05:32:00 Rashida Steele MD POTASSIUM LEVEL 2020-11-12 05:32:00 Rashida Steele MD MAGNESIUM LEVEL 2020-11-12 05:32:00 Rashida Steele MD BLOOD UREA NITROGEN 2020-11-12 05:32:00 Rashida Steele MD SERUM CREATININE 2020-11-12 05:32:00 Rashida Steele MD GLUCOSE, RANDOM 2020-11-12 05:32:00 Rashida Steele MD Results CBC 2020-11-12 05:32:00 More Covarrubias MD MANUAL DIFFERENTIAL 2020-11-12 05:32:00 More Covarrubias MD SERUM CREATININE 2020-11-12 05:32:00 Moer Covarrubias MD .GLOMERULAR FILTRATION 2020-11-12 05:32:00 More Covarrubias MD RATE ANION GAP 2020-11-12 05:32:00 More Covarrubias MD COMPLETE BLOOD COUNT W/ 2020-11-12 02:38:00 Rashida Steele MD nderson DIFFERENTIAL APTT 2020-11-12 02:38:00 Rashida Steele MD PROTHROMBIN TIME 2020-11-12 02:38:00 Rashida Steele MD Results CBC 2020-11-12 02:38:00 More Covarrubias MD MANUAL DIFFERENTIAL 2020-11-12 02:38:00 More Covarrubias MD [facility] PATHOLOGY SURGICAL 2020-11-11 22:11:00 Gabriel Alfonsoers on INTERPRETATION ROBOTIC ASSISTED TOTAL 2020-11-11 19:52:00 Gabriel Alfonso MD derson HYSTERECTOMY ROBOTIC ASSISTED 2020-11-11 19:52:00 Gabriel Alfonso MD SALPINGO-OOPHORECTOMY INTRAOPERATIVE LYMPHATIC 2020-11-11 19:52:00 Gabriel Alfonso MD MAPPING LIMITED LYMPHADENECTOMY 2020-11-11 19:52:00 Gabriel Alfonso MDrson FOR STAGING; PELVIC AND PARA-AORTIC LYMPH NODES TYPE AND SCREEN 2020-11-11 19:29:00 Maryuri Bradshaw MD ABORH 2020-11-11 19:29:00 Maryuri Bradshaw MD ANTIBODY SCREEN 2020-11-11 19:29:00 Maryuri Bradshaw MD CLOT EXPIRATION DATE 2020-11-11 19:29:00 Maryuri Bradshawe rson TMP INTERPRETATION 2020-11-11 19:29:00 Maryuri Bradshaw MD on ANTIBODY SCREEN NEGATIVE COVID-19 (SARS-COV-2) 2020-11-10 17:00:00 Darnell Vicente MD And erson PCR-ASYMPTOMATIC MC CT CHEST ABDOMEN PELVIS W 2020-11-03 23:13:40 Maryuri Bradshaw MD CONTRAST CONFIRM ABORH TYPE 2020-10-31 15:59:05 Maryuri Bradshaw MD on URINE CULTURE 2020-10-31 15:57:47 Maryuri Bradshaw MD URINALYSIS WITH 2020-10-31 15:57:47 Maryuri Bradshaw MD MICROSCOPIC IF INDICATED URINALYSIS MICROSCOPIC 2020-10-31 15:57:47 Maryuri Bradshaw MD derson COMPLETE BLOOD COUNT W/ 2020-10-31 15:47:00 Maryuri Bradshaw MD DIFFERENTIAL COMPREHENSIVE METABOLIC 2020-10-31 15:47:00 Maryuri Bradshaw MDon PANEL CANCER ANTIGEN 125 2020-10-31 15:47:00 Maryuri [...] ELECTROLYTE PANEL 2020-10-31 15:47:00 Maryuri Bradshaw MD SERUM CREATININE 2020-10-31 15:47:00 Maryuri Bradshaw MD .GLOMERULAR FILTRATION 2020-10-31 15:47:00 Maryuri Bradshaw MD RATE CALCIUM LEVEL TOTAL 2020-10-31 15:47:00 Maryuri Bradshaw MD Melvin son ALBUMIN LEVEL 2020-10-31 15:47:00 Maryuri Bradshaw MD ALKALINE PHOSPHATASE 2020-10-31 15:47:00 Maryuri Bradshaw MD Darion rson ALANINE AMINOTRANSFERASE 2020-10-31 15:47:00 Maryuri Bradshaw MD ASPARTATE AMINOTRANSFERASE 2020-10-31 15:47:00 Maryuri Bradshaw TOTAL PROTEIN 2020-10-31 15:47:00 Maryuri Bradshaw MD FRACTIONATED BILIRUBIN 2020-10-31 15:47:00 Maryuri Bradshaw MDson ABORH 2020-10-31 15:47:00 Maryuri Bradshaw MD ANTIBODY SCREEN 2020-10-31 15:47:00 Maryuri Bradshaw MD HEPATITIS C VIRUS AB 2020-10-31 15:47:00 Maryuri Bradshaw MD Darion rson SCREEN W/REFLEX HCV PCR CLOT EXPIRATION DATE 2020-10-31 15:47:00 Maryuri Bradshaw MD Darion rson TMP INTERPRETATION 2020-10-31 15:47:00 Maryuri Bradshaw MD on ANTIBODY SCREEN NEGATIVE TMP HIV 1/2 AG&AB PATH 2020-10-31 15:47:00 Maryuri Bradshaw MD INTERP TMP INTERPRETATION 2020-10-31 15:47:00 Maryuri Bradshaw MD on EXCEPTION PREOP EXPIRATION EKG, 12-LEAD (SCHEDULED) 2020-10-31 00:00:00 Maryuri Bradshaw MD COVID-19 (SARS-COV-2) 2020-10-29 16:49:00 Gabriel Alfonso MD And satnam PCR-ASYMPTOMATIC MC ASSIGNMENT OF BENEFITS 2020-04-04 16:31:46 Doctor Unassigned, No General acute hospital Plan of Care Planned Activity Planned Date Details Comments Source Future Scheduled Test 2021-06-07 00:00:00 COVID-19 Vaccination (Anna Jackson - Inadvertent risk 4-dose series) [code = COVID-19 Vaccination (3 - Inadvertent risk 4-dose series)] Encounters Start End Encounter Admission Attending Care Care Encounter Source Date/Time Date/Time Type Type Clinicians Facility Department ID 2021-07-12 Outpatient SYSTEM, MDA MDA [id number] 10:02:31 SHERI campbell 2020-12-20 Outpatient SYSTEM, MDA MDA [id number] 09:52:22 SHERI campbell 2020-10-05 Outpatient SYSTEM, MDA MDA [id number] 15:14:58 SHERI campbell 2020-09-29 Inpatient ANITA GaribayPM MADDY [id number] [facility] 14:30:00 Claudia 199119 [facility] 2020-09-27 Inpatient VINAYAK Garibay HCAPM MADDY [id number] 13:00:00 [facility] [id number] [facility] 2021-08-09 2021-08-09 Outpatient VINAYAK ALFONSO MDA MDA [id number] 10:21:31 10:21:31 GABRIEL campbell 2021-08-08 2021-08-08 Outpatient VINAYAK ALFONSO [facility] MDA [id number] 10:25:42 10:25:42 GABRIEL campbell 2021-08-07 2021-08-07 Outpatient VINAYAK ALFONSO [facility] MDA [id number] 13:52:26 13:52:26 GABRIEL campbell 2021-08-07 2021-08-07 Outpatient VINAYAK DE LEON [facility] MDA [id number] 11:52:02 12:18:26 HIRAL campbell 2021-08-07 2021-08-07 Outpatient VINAYAK ALFONSO [facility] MDA [id number] 11:08:47 11:08:47 GABRIEL campbell 2021-08-05 2021-08-05 Outpatient VINAYAK DE LEON [facility] MDA [id number] 15:41:04 15:41:04 HIRAL campbell 2021-07-31 2021-07-31 Outpatient VINAYAK ALFONSO [facility] MDA [id number] 06:00:00 23:59:00 GABRIEL campbell 2021-07-27 2021-07-27 Outpatient VINAYAK DE LEON [facility] MDA [id number] 09:04:19 10:06:56 HIRAL campbell 2021-07-27 2021-07-27 Outpatient VINAYAK DE LEON MDA MDA [id number] 09:42:49 09:42:49 HIRAL campbell 2021-07-17 2021-07-17 Outpatient VINAYAK ALFONSO MDA MDA [id number] 12:35:55 12:35:55 GABRIEL campbell 2021-07-12 2021-07-12 Outpatient MARYURI LEACH MDA MDA [id number] 12:08:08 23:59:00 Luigi campbell 2021-07-03 2021-07-03 Outpatient VINAYAK ALFONSO MDA MDA [id number] 09:35:38 09:35:38 GABRIEL campbell 2021-06-16 2021-06-16 Outpatient PABLO, [facility] [id number] 00:00:00 00:00:00 CLIFFORD 693 Method i 2021-06-16 2021-06-16 Outpatient PABLO, [facility] [id number] 00:00:00 00:00:00 CLIFFORD 707 Method i 2021-06-16 2021-06-16 Outpatient PABLO, [facility] [id number] 00:00:00 00:00:00 CLIFFORD 450 Method i 2020-12-26 2020-12-26 Outpatient VINAYAK ALFONSO MDA MDA [id number] 09:57:18 09:57:18 GABRIEL campbell 2020-12-05 2020-12-05 Outpatient VINAYAK ALFONSO MDA MDA [id number] 11:37:31 11:37:31 GABRIEL campbell 2020-12-01 2020-12-01 Outpatient PABLO, [facility] [id number] [place] 00:00:00 00:00:00 CLIFFORD 224 Method i 2020-12-01 2020-12-01 Outpatient PABLO, [facility] [id number] 00:00:00 00:00:00 CLIFFORD 827 Method i 2020-11-11 2020-11-12 Inpatient VINAYAK COVARRUBIAS, MDA ATTORNEY LAW CLERK [id number] 11:43:00 13:49:00 MORE Oncology Melvin campbell 2020-11-10 2020-11-10 Outpatient MARYURI LEACH MDA MDA [id number] 12:18:45 14:43:14 Luigi o adrian 2020-11-10 2020-11-10 Outpatient MARYURI LEACH MDA MDA [id number] 11:50:39 13:12:24 Luigi o adrian 2020-11-03 2020-11-03 Outpatient MARYURI LEACH MDA MDA [id number] 13:24:38 17:05:49 Luigi o n 2020-11-03 2020-11-03 Outpatient VINAYAK ALFONSO MDA MDA [id number] 13:16:00 16:58:36 GABRIEL Meyers o adrian 2020-11-03 2020-11-03 Outpatient MARYURI LEACH MDA MDA [id number] 15:17:01 15:17:01 Luigi o adrian 2020-10-31 2020-10-31 Outpatient MARYURI LEACH MDA MDA [id number] 10:59:29 11:16:37 Luigi o n 2020-10-31 2020-10-31 Outpatient MARYURI LEACH MDA MDA [id number] 10:11:38 10:54:03 Luigi o adrian 2020-10-31 2020-10-31 Outpatient VINAYAK ALFONSO MDA MDA [id number] 08:13:36 08:27:20 GABRIEL campbell 2020-10-31 2020-10-31 Outpatient VINAYAK ALFONSO MDA MDA [id number] 08:17:05 08:17:05 GABRIEL campbell 2020-10-29 2020-10-29 Outpatient VINAYAK ALFONSO MDA MDA [id number] 11:41:54 12:36:53 GABRIEL campbell 2020-04-04 2020-04-04 Laboratory Only, Adc Test [facility] 1.2.840. 114 [id number] [facility] 11:30:52 11:45:52 Only Elpidio Archuleta [id number] [facility] [id number] [facility] [id number] [place] [address] Branch 2020-04-04 2020-04-04 Laboratory Only, Adc [facility] 1.2.840.114 [id number] 11:30:52 11:45:52 Only Test [place] [id number] [place] [id number] [place] [id number] 2020-04-04 2020-04-04 Outpatient R [facility] [id number] Univers 11:45:00 11:45:00 [id number] ity [facility] 2020-04-04 2020-04-04 Outpatient R [facility] [id number] Univers 11:45:00 11:45:00 ity [facility] 2020-04-04 2020-04-04 Orders Doctor GARCIA 1.2.840.114 [id number] Univers 00:00:00 00:00:00 Only Unassigned, GLADYS [id number] ity of Odin [facility] [id number] [facility] [id number] [address] 2020-04-04 2020-04-04 Orders Doctor GARCIA 1.2.840.114 [id number] 00:00:00 00:00:00 Only Unassigned, GLADYS [id number] Odin [facility] [id number] [facility] 2020-01-22 2020-01-22 Outpatient [facility] [id number] 00:00:00 00:00:00 MARKIE [address] 2019-07-23 2019-07-23 Outpatient [facility] [id number] 00:00:00 00:00:00 MARKIE [address] Results Test Description Test Time Test Comments Results Result Comments Source Pathology Surgical Interpretation 2020-11-23 21:28:02 Test Item Value Reference Range Interpretation Comme nts Submitted d5ozpETuIBXfdEW9SEQjRZCqn7bsc5OwnCWpyDZlWFnzmCBlgqJukn84rFV9iF34HA5gBMLtXlC2RSXj tlY4Mwl8PVJpXEEboBByE572q5olk1sgeaMnsCZ3sGpdCYFjhnjxNhM2MGjmGYSmhqalEDi5ZQtsGMGv kDD4YOEppOFcN4EePCBmIU9cpus8QVU6OWqmSCJsAcY6UHOcuCJ Clinical iIMRqpFngGKddz115IAT0HwGmHQRftqQivLqiuC9qFnOfPLSBTIbbF90kqjXecpDqjQvov15fu5LrGK3 if41aoBNdcN5vX0C3PB8jLDafTWMnWJ72eAInPMj2aYHnnXWqi4niwcYlJREmUTdiKz2eqLYcGFbdSUU 9YFQfYdSoN97jt47ut7RoKQhbQIuvFNloLRpmWXZ0 History (test code = 68230) Diagnosis f1dggTYrRCXbmVD3YJMnDIYtr0dlu6XdvMLnjBAoPGacvPNfcxScbq36oVD7pS37QZ3uYAEwBmA1HXBg seY7Cgq3XSHgULRcmXEiY014e5xow3gxyxUmsKZ3GKTlBVE0ANojsnNohlKqJuc6IFB8TAZuPWZdK4Bk GL3bKGLqiZXxY86epKQuUKS6YOLtEWNvoLHwTXIbUTV8OEVemVU (test code vV7tlHKWuXZ7swfvjXKybNCofLZCgrFZ7VXCpiGYjT1AxBEFlXEowNEHgzib5VnPbHu0rxKXvrZyoOCr pBBHrZYEoKBheHJYlYoRqLwydQsUjiVRsACTyBoExW5CfZCV6DAHdsvruQjQePYMcnRUvInJ0ofM4h9L tg4YfwTylZFkdgTzetSsmsf0uZWXsQ7AbEY7uJDYkPOR8QKPtMC = 34) GifMGfWWNkDpHeTC4fNQJxvN1uoLPjo3UjBLWjieT6aP4uxpSlbzXtVT39DHyBOAYjN27fgUHtxOeplP DzVJWnHRwuDRMrOcSYKbjyGYHyX8ChSXAiC3y4AE8hzUXfVZStteDgNC42cC9ggAJcdC0xyMYzb7ClYX stmmUtuvupW3IyJLyxeJFuMLNxIwKkMVDqHY5uQIHwuL1rxKLxh 0ElEYKomkV4aM4mcxUaoqCaUG33FJaBIRWhU19nkGZnmDssbSFyFRXqDMugNBTixhQSMajkZXBlB9IxO WLoV2i1GF6toNXiQSHysrSyc01am4NaqDxrYCaxkEeupXegor2tTDHdrf31JMptSLZpQVbjRcAaQgbnC CFxTvx4JlQaGhAaJ30pRSh1nYOcLH0aPREjGT5qEQM9iP8eDWRd PLBjbyXbQLAdFHBjg03xDG27QYcbQGYkGzvqBJFaTGxoTIYuMPmerSTyJYYbHfVPrNkxnCVghCZtpo5r jMVuwHlmZaAsXF72qU4gpBByjK1pgFGnq0HyOGwdpiPvkbirpYScHROaWuRoQWYqOUKfSAJBqdFcqQux bMrjtx3sVDwcdx6noTFve9FfhTExc1EotCHeS0OsJERaxI9lekE pXHBhclxmaTBcYlxjZjJccGFyXHBhclxjZjAgRTpccGFyXGNmMiBVdGVydXMsIGNlcnZpeCwgcmlnaHQ ugOPeOEFmddAfd0SyndfeS2HbZMqbLlJeBGkuUWYlIjt6KxGxMW7SJ77DXCFWJAxaRZ5GN46YFFVSBXO fYOHVZj1UIQNIIN0PAORmAYWPT86rS7CUZQDiDOabEMZpmzLtN3 DXFJCSIPDIYR7YUCTLYpVMWCVWQlAvVVMwegRUldWvkMF1rkgafCUop6p3fVfoUUEmCujoKOLazkawSR JccGFyXHBhclxwYXJ9 Comment j0vhgGVnCENfsEI7JZMbTOHad9fqz0FcxZMncHAoQQywpCJxshMned60oLK7jU58VW5lHTXdTgX4SXFj phE7Ooq0GFKsHESnbLDxV262m6sch4zxffEyjEB1fBkjPFEudzqyJrB3HRioOFQxyqfsSIk7SXjlNRGm uCB7VZLsjGZmR9WyWEYiUR5ewyp4KRU0SWsiNPSdNvR3PKAcoLI (test code tIFQupIeuBBddf275HJW1LuQqMQEsbcHknHznrG2rPwOaFKFrTLxsETGliFNoFMzsrdHqfqYxopXaxB3 ciD1iiEekjD6iaFIpnAZauYNgnWPoqwyzOyGiw0EgM3t8q1apejK5fT5ds4NxUAIfpvQmwf2uRYhhkl0 ckHE5BNN7TFPsCcPnOVNlmB7qiKKjiRPsmLIxjtMsKadyDJ0kKJ = 9835) DqyelqISEdGhMuDQgnbJWeq6obk3KyS0totYjqKGztz4EgwJ5ontddh7MsqRBds7IgX8BaiVPalyEii9 NntUg9UBOxv1IeSMUFBCwnR8xrWuZmGq9pBHkiJLQEUkJvFn4hHGxgGKSXYuTiQa1tBSkuXGOtZVKrAJ wfaEy0XWMkb2YjG8TpOK0kCVFdAMHkxB15ah9jyYZ1a1TlZX1pC 4YbGRX3QHbnvQ4gXVNrlmFjMWUwyEHvb9lgFQU6iJOwGMUjnCPwh9A5lJ2uCPTjAJMqqKWcub6ikJEyg mVuZGVyZWQgYWJvdmUuIFxwYXJ9 Synoptic ENDOMETRIUM (ENDOMETRIUM: H YSTERECTOMY - [...] elvic Nodes Examined: 4 Number of Pelvic [place] Nodes Examined: 4 Total Number of Para-aortic Nodes Examined: 0 PATHOLOGIC STAGE CLASSIFICATION (pTNM, AJCC 8th Edition) Primary Tumor (pT ): pT1a Regional Lymph Nodes Modifier: (sn) Regional Lymph Nodes (pN): pN0 FIGO STAGE FIGO Stage: IA Gross a6jelTFnMWDpzWODVHLhM2dvuoIfACQkeMAhL7NrdaeoDSkcFC7vHG6ldDamlHMbjOPmTU2BZFTcWxMm QVKfpNNdffMsUaPnTOEnbZRkaXV6IDTgYN9elomdUUdbYDalGQSttwU4BHRayPHxF1DaLXPqIG3rlgff UUP9RZlkdH4uovJJTirgTr4tmMQpbUoaWaUfEkVhKFSxRFXtLKU Descriptio vbJupDWMmQMu3gQ1OCpalZ15wq7R3Wai6XWQcWMFlN3WzEC9sGOLanCWoZ62WQbxwBXN0VGNZVirmCNO iOA1Ot6amDGBrhOGqKAR2AKyjrLIdCMXaEVFiWRm1SZQyKDuriPPtKU9lbZyeVaysxTdrx4CxvVWhZFo aXFVuZLNmBVfyUMInQL9JUtPhLYBfAru9UhnmXVi7KZf7YF3SDl n (test EgTYGuOFkpYYB7RDMbXFa8KVzyRC6WMAq0AGH2LqH0JGX8QXZyVKCvLJArJjBnGRWhYNLmMLyjVEozjf YaYWIhOPLmUTnnIuwsFYbbI58zoPoieO6uKnmvmlJdARW4AMDgciVUXvvtoPFmyhfdqPtkEsNdeMGqHl EgDQpcbHRycGFyXGxpbjBccmluMCANClxsdHJjaFxiXGNmMVxmc code = dSzQDlpIyKjd8E7cDQucY1nNCZcdaApgcXqZFu2tPMcDO7wEGLhMUxlTSMtTMcwHaCgNbtcVFBgH33js 4yvcFIpn5OjMyZrz0NrgYTrTXX5WH3aqAerlRwtru6vEVOkd3l6qBUtg9XmM5fesQRmLKQlsQAyw0Yrj Nwvg5IaHCzlZpNuuIOyVccxeXPbEaRnW83zMV8bYZRpVWH5RSFa 0612120579 OHA3EEInNCDofXfrJTLylvGYOccuZZOqEJfJQPEGAK5CTGTZWWO5EWVlWKTyNXBxc1XqQnceHGh6eAQo XU6bCSGtr8RrsNHthKivu8TpxBnkpxZlYgHQCa9iWSXwWDVao7MvAekcBNr9iFNtEL6kMUTvj0PaeIBr pQkhh5EveBxmluNkDhLrQSRkl8AhH5Z5RUHaYEeug0xqGGTtYRm ) [file] XTdoYKipBLrXhLeVulvRDZ0RKsfv2mbVET2RLVwbKZbvCLdFWizCjWvRmbuAPUkF3BkK7CvvmH2LCc8 Biomarker q8ccaIXyOFHexJB9IRDsNVAhw9hda9PicKIaaJChCJcqyRMarfQraj97cJC3vL71BG9eWCNfByD0LDPa iaJ0Wcc2GVDnIZJtuBDyT252z4wlc7doopGptPZ6zRxfZLQrqlgiDdI9BKkdCJYigsmuDBa1PIurOQMl qHF8RWIqhOGjW3NrEDIhYJ4ynyn6VUO5ESghRSGuOlZ2ZQBowZM Block(s) iZQMoxUztWErng169SFI7WdJvXVJdzpUibYwueL1dVlUjQMZRHlAPTBW5FK57XGCgJGxxFXL8 (test code = 9841) Disclaimer t5wxwRGbSNJknAWuQoSuDIPkVCRpr6ygSUUvyOMnFoAqDrGgCjLuCeydhLWxFDAeRjBcy6oyq652rRSt b4ciPBPfMmD4vUCcXNCzhKMuD568FNUaVFcot9wjq7SeNYXfeNHxm9M3YVYRnsqmlTh0vRwpX89al1S0 KxpiI2wcFYYpOEZzF1YqQT8xCLLjSmp0YGD5DUD4ROYwRDEvD2A (test code zDP2rYJYtkQVbJCe3i3rozIhyBQUdADU4k4nnMWnpzeZlZO2kzu8ioPg4j5kkkrVvEWUuOTAwuHEXTDN rN8BxrZquQe6dvIr9uXhwHsuhRNA3Mid8RD5twc91dwd5bQvcWRVszgwpIaT1DFzyCXJxvwjcOAs1HUq xIHXhhBH3MMGaiITvI6NwKUOlUS2kmzx7EEO2USglPTDjOyO0BA = 9844) RgvTPeCSBrfClmVGytn502ICW9LpKoVE5kW2Sya3I6oP2vrMGoAJImlJWqBqOeFDJohk0kjIJhJJiie6 EqBUP2poQ3nEWjxVSnLIRuPT03Lrgix5SsHoliEBF8VTMxzeXko4Cmy6gdPyUvqdMsC2vhS8XqZAVyNV VjCAXgQsXdfyAfd5Qmo2KdtOMdwPh2b7etMQTqLBVebMdxu2gfP OB6DKTyL6Q8xIIbq3maLGsfPAPnrJN0ltK2NPMgxJRrN7GafN8jUDIzEM8gtcp1s5wrEWB7MYcdXSStL uM5zdT1JONqoWWeGZCtkQbySByal249BNN0GkEkNBUvk5ZxX3QlnDrqU95goRsdC60tNXRmoJssvY0je BzsyM3sSuCnShPtLPlmhAvbiOLnosfrRPobojM8WLpcjoblUVAq HXebQ1gsOsEnKOOlsQcsONocd9GbIFLrAIWmAeeovsE1MNUBb95tVNHsu5JsAIGhuI7zxETiHInfurGj uYL9ACyzjqPjKtOebsDjZECvpR7wZGWvRU4aSAJhweInxd9urfGbLYMoDTTiP2KchwlezXzyxhQbCXVd yn9craMcSXL0WHMHCB3CAEYfCBTpo38xACCjpGmklO2crVIrejO bFODji6RhhX5koDFGAYZoI2aqPZ6gYEqdf0PxjRLrxTSegSS6XSPtr8TqSuEpuyNleYMybWVbA5SrzJz lC7fwAXGtTODwfeWerTLge2UzVPYjcHO5iHNnPC0TSnCYh47bWHIgFKEGzbUmMYFklUlhjHC4yaS1sJ2 vIcXPPeAnaAOsrGMiJlxxRVNqj482zs8ighL7WZWeYHMtnmdza2 KiALQfTDWlmO16KDNiVBIuvz1aeeevnREpblKkE0Imqza8aR1eURSvVQjrLNWdQKEkOlCyqAWdUkBdMe TjvHbleNiuOEfdKtYjZTKeYJkeR2iiIiRnQaViGrltOJZ1 MD [facility] [id number] 16:58:01 Test Item Value Reference Range Interpretation [...] According to th e [employer]'s Ki dney Disease Outcome Quality Initiat davie (KDOQI) [...] According to th e [employer]'s Ki chuckyey Disease Outcome Quality Initiat davie (KDOQI) classif [...] f ailure <15 [Auto mated message] [employer] stem which generated this result transmit colt reference range : >=60 mL/min/1.73 sq. m. The reference range was not used to int erpret this result as normal/abnormal . Lab Interpretation Abnormal (test code = 39121-9) MD Jackson.Serum [id number] 16:58:00 Test Item Value Reference Range Interpretation Comments Creatinine (test code = 5399) 1.20 mg/dL 0.51-0.95 H Lab Interpretation (test code = Abnormal 40825-0) MD JacksonCalcium [id number] 16:57:59 Test Item Value Reference Range Interpretation Comments Calcium Lvl (test code = 5258) 8.6 mg/dL 8.4-10.2 MD [id number] 16:57:58 Test Item Value Reference Range Interpretation Comments BUN (test code = 5055) 14 mg/dL 6-23 MD JacksonElectrolyte [id number] 16:57:57 Test Item Value Reference Range Interpretation Comments Sodium Lvl (test code = 131 See_Comment L [Au tomated message] 8592) The system [employer] generated this result transmitted ref erence range: 136 - 14 5 mEq/L. The refe rence range was not u sed to interpret this result as normal/abnor mal. Potassium Lvl (test code 4.2 See_Comment [A utomated message] = 0103) The system [employer] generated this result transmitted ref erence range: 3.5 - 5. 1 mEq/L. The refe rence range was not u sed to interpret this result as normal/abnor mal. Chloride (test code = 95 See_Comment L [Auto mated message] 2498) The system [employer] generated this result transmitted ref erence range: 98 - 107 mEq/L. The refe rence range was not u sed to interpret this result as normal/abnor mal. CO2 (test code = 5227) 24 See_Comment [Aut omated message] The system [employer] generated this result transmitted ref erence range: 22 - 29 mEq/L. The reference r jerson was not used to interpret this result as normal/abnor mal. Anion Gap (test code = 12 See_Comment [Aut omated message] 3546) The system [employer] generated this result transmitted ref erence range: 4 - 14 m Eq/L. The reference r jerson was not used to interpret this result as normal/abnor mal. Lab Interpretation (test Abnormal code = 08198-0) MD JacksonGlucose [id number] 16:57:56 Test Item Value Reference Range Interpretation [...] diabetes Lab Interpretation (test Abnormal code = 81856-7) MD JacksonCompletwerner Blood Count w/o [id number] 16:46:41 Test Item Value Reference Range Interpretation Comments WBC (test code = 8034) 7.5 K/uL 4.0-11.0 RBC (test code = 6932) 2.75 See_Comment L [Aut omated message] The system [employer] generated this result transmitted ref erence range: 4.00 - 5 .50 M/uL. The refer ence range was not u sed to interpret this result as normal/abnor mal. Hgb (test code = 5898) 10.6 See_Comment L [Aut omated message] The system [employer] generated this result transmitted ref erence range: [...] 35.1 See_Comment [Au tomated message] The system [employer] generated this result transmitted ref erence range: [...] cell differential. [Automated mess age] The system [employer] generated this result transmitted ref erence range: <=0.0. T he reference range was not used to int erpret this result as normal/abnormal . Lab Interpretation Abnormal (test code = 55750-3) MD Pollo Marmolejo2021-06-05 06:32:30 Test Item Value Reference Range Interpretation Comments Anion Gap (test code = 16 See_Comment H [Aut omated message] 9929) The system [employer] generated this result transmitted ref erence range: 4 - 14 m Eq/L. The reference r jerson was not used to interpret this result as normal/abnor mal. Lab Interpretation (test Abnormal code = 00980-1) ManuelChloride [id number] 06:32:28 Test Item Value Reference Range Interpretation Comments Chloride (test code = 96 See_Comment L [Auto mated message] 5279) The system [employer] generated this result transmitted ref erence range: 98 - 107 mEq/L. The refe rence range was not u sed to interpret this result as normal/abnor mal. Lab Interpretation (test Abnormal code = 30537-7) ManuelMagnesium [id number] 06:32:27 Test Item Value Reference Range Interpretation Comments Magnesium (test code = 6359) 1.1 mg/dL 1.6-2.6 L Lab Interpretation (test code = Abnormal 98382-7) MD JacksonPotassium [id number] 06:32:26 Test Item Value Reference Range Interpretation Comments Potassium Lvl (test 3.7 See_Comment [Automa colt message] The code = 6854) system which ge nerated this result tra nsmitted reference range : 3.5 - 5.1 mEq/L. The reference range was not u sed to interpret this result as normal/abnormal . MD JacksonSodium [id number] 06:32:24 Test Item Value Reference Range Interpretation Comments Sodium Lvl (test code = 135 See_Comment L [Au tomated message] 7355) The system [employer] generated this result transmitted ref erence range: 136 - 14 5 mEq/L. The refe rence range was not u sed to interpret this result as normal/abnor mal. Lab Interpretation (test Abnormal code = 22249-0) MD JacksonGlucose, [id number] 06:32:22 Test Item Value Reference Range Interpretation Comments Glucose Random (test 192 mg/dL 70-199 Effecti ve 01/04/16, the code = 9360) glucose referen ce intervals have been updated based o n [employer] [employer] jordy delines (Standards of [...] increased risk for diabetes MD JacksonCarbon Dioxide [id number] 06:32:21 Test Item Value Reference Range Interpretation Comments CO2 (test code = 23 See_Comment [Automated message] The 6824) system which ge nerated this result transmit colt reference range : 22 - 29 mEq/L. The refe rence range was not used to interpret this result as normal/abnormal . MD JacksonJosvtagzYxptdrmzudhg4399-30-52 06:08:51 Test Item Value Reference Range Interpretation [...] 0.00-0.04 Lab Interpretation (test Abnormal code = 10494-5) MD Jackson.[id number] 06:08:47 Test Item Value Reference Range Interpretation Comments WBC (test code = 8034) 6.3 K/uL 4.0-11.0 RBC (test code = 6932) 2.86 See_Comment L [Aut omated message] The system [employer] generated this result transmitted ref erence range: 4.00 - 5 .50 M/uL. The refer ence range was not u sed to interpret this result as normal/abnor mal. Hgb (test code = 5898) 10.9 See_Comment L [Aut omated message] The system [employer] generated this result transmitted ref erence range: [...] 35.2 See_Comment [Au tomated message] The system [employer] generated this result transmitted ref erence range: [...] cell differential. [Automated mess age] The system [employer] generated this result transmitted ref erence range: <=0.0. T he reference range was not used to int erpret this result as normal/abnormal . Lab Interpretation Abnormal (test code = 91994-6) MD JacksonPartial Thromboplastin [id number] 03:38:18 Test Item Value Reference Range Interpretation Comments aPTT (test code = 30.4 See_Comment [Automate d message] The 6773) system which ge nerated this result transmit colt reference range : 24.7 - 36.8 second(s). The reference range was not used to interpr et this result as yusuf l/abnormal. MD JacksonProthrombin Time with [id number] 03:38:17 Test Item Value Reference Range Interpretation Comments PT (test code = 6746) 14.7 See_Comment H [Auto mated message] The system whic h generated this result transmitted ref erence range: 11.5 - 1 3.9 second(s). The reference range was not used to int erpret this result as normal/abnormal . INR (test code = 5973) 1.23 0.90-1.10 H Lab Interpretation (test Abnormal code = 63386-2) MD JacksonTMP Interpretation Antibody Screen [id number] 21:29:30 Test Item Value Reference Range Interpretation Comments TMP Auto Neg At the present ABSC Interp time, patient (test code = plasma shows no ____JANETT CT N 7535) evidence of RBC TORRIE,Dictate d by: JANETT alloantibocandice. PATRICIA BROWNLEE,Dic tated Date/Time: 16:29 PM CDT Transcribed Madhu e/Time: 11.11.2020 16:2 9 PM CDTElectronical ly Signed By: JANETT Griffiths EJ, on 11.11.2020 16:2 9 PM MD JacksonAntibody [id number] 20:49:56 Test Item Value Reference Range Interpretation Comments ABSC. (test code = 890-4) Negative ABSC MD JacksonOgzkintsCOFBt0894-38-22 20:49:55 Test Item Value Reference Range Interpretation Comments ABORh. (test code = 882-1) B POS MD JacksonClalexsandra Expiration [id number] 20:49:51 Test Item Value Reference Range Interpretation Comments T & S Expiration (test code = 11/14/2020 5318) MD AndersonCOVID-19 (SARS-CoV-2) PCR-Asymptomatic [id number] 00:45:05 Test Item Value Reference Range Interpretation Comments COVID19 (SARS Not Detected Not Detected This test is a CoV-2) Result qualitative (test code = reverse-transcr iptase 11952-4) polymerase aguila n reaction (RT-PC R) developed [...] were verified by the Microbiology Laboratory at [facility], CLIA Accreditation # : [id number] and CAP Accreditation # : [id number]. Result s must be interpreted within the [...] te sting if clinically indicated. COVID19 SARS SPECIAL LOAN OFFICER Swab Source (test code = 96579) COVID19 SARS Pre-OR Procedure Indication (test code = 35109) MD [id number] 16:14:00 Test Item Value Reference Range Interpretation Comments SURG (test code = SURG) RUN DATE: 09/30/20 [facility] PAGE 1 RUN TIME: 1614 Specimen Inquiry RUN USER: INTERFACE PATIENT: LUCHO VIEIRA LOC: SHANAU U #: [id number] AGE/SX: 80/F ROOM: RE09/29/20[facility] DR: Claudia Garibay : 36 BED: DIS: STATUS: [facility] TLOC: SPEC #: [id number] RECD: 09/29/20 STATUS: SHAHANA REQ #: [id number] SUSIE: 09/29/[address]: Claudia Garibay MD ENTERED: 09/29/20 SP TYPE: SURG OTHR DR: Jacky Vasquez DO ORDERED: SURG PATH LVL 4 COPIES TO: Jacky Vasquez DO [address] [place] [address] Claudia Garibay MD [address] [place] [address] HISTOLOGY: TISSUE ID BLK PCS HELGA LEV PROCEDURE DISPOSITION ____ ___ ___ ___ ENDOMETRIAL CAV A 1 1 PROCEDURES: SURG PATH LVL 4 (09/29/20-1409) TISSUES: A. ENDOMETRIAL CAVITY - ENDOMETRIAL CURETTINGS CONSULTATION Dr. Grover has reviewed this case and agrees with the diagnosis. CPT CODES CPT CODE(S): 59328 , , , , , , FINAL DIAGNOSIS Uterus, endometrium, curettage: ENDOMETRIOID CARCINOMA GROSS DESCRIPTION Endometrial curettings. Received in formalin are multiple irregular fragments of trujillo-brown soft tissue admixed with hemorrhagic mucoid material and dark red-brown blood clots, 4.5 x 2.5 x 0.3 cm in aggregate. The entire specimen is submitted as A1 - A3. /ba/pdb CONTINUED ON NEXT PAGE RUN DATE: 09/30/20 [facility] PAGE 2 RUN TIME: 1614 Specimen Inquiry RUN USER: INTERFACE SPEC #: [id number] PATIENT: LUCHO VIEIRA #[id number] (Continued) GROSS DESCRIPTION (Continued) Grossing performed at [facility] Pathology, [facility], [address], [place], [place] [address]. [place] Deckhand: Kole Grover M.D. MICROSCOPIC DESCRIPTION Endometrial curettings. Sections demonstrate endometrial glands and stroma. The majority of the endometrium demonstrates marked hyperchromasia with nuclear crowding. Prominent sections of back to back glands with no intervening stroma are identified. These findings are consistent with endometrioid carcinoma. Areas of hyperplasia with atypia are also identified. Signed SIGNATURE ON FILE German Potts 09/30/20 1614 END OF REPORT BASIC METABOLIC [id number] 14:39:00 Test Item Value Reference Range Interpretation [...] 8.3 MG/DL 8.5-10.1 L COVID 19 INHOUSE [id number] 14:24:00 Test Item Value Reference Range Interpretation Comments COVID 19 INHOUSE AG NEGATIVE Negative Per manu facturer, (test code = negative result s should [id number]) be treated aspr esumptive and, if inconsi [...] and symptoms co nsistent with COVID-19. PROTHROMBIN [id number] 14:22:00 Test Item Value Reference Range Interpretation Comments PT PATIENT (test code = PTP) 11.4 SECONDS 9.3-12.9 N INTERNATIONAL NORMAL RATIO 1.02 INR Unit 0.8-1.2 N (test code = INR) THROMBOPLASTIN TIME [id number] 14:22:00 Test Item Value Reference Range Interpretation Comments THROMBOPLASTIN TIME PARTIAL 33.7 SECONDS 26-35 N (test code = PTT) CBC W/AUTO [id number] 14:13:00 Test Item Value Reference Range Interpretation [...]
[2021-08-10] MEDS ORDERED: NA CHLORIDE 0.9% 100 ML IV ONE (04:37)
[2021-08-10] MEDS ORDERED: LEVETIRACETAM 500 MG/5 ML VIAL IV ONE (04:37)
[2021-08-10 04:41] LABS: Hematocrit 33.8 % (36.0-45.0); Lymphocytes % 24.9 % (15.3-44.8); MPV 8.8 fL (7.6-11.3); RBC Red Blood Cell Count 3.26 M/uL (3.86-4.86)
[2021-08-10 04:45] LABS: Protime INR 1.07
[2021-08-10 05:04] LABS: Potassium 4.2 mmol/L (3.5-5.1); Troponin High Sensitivity 10.3 pg/mL (<58.9)
[2021-08-10] MEDS ORDERED: CALCIUM GLUCONATE 1 GM IVPB 1 GM/50 ML BAG IV ONE (05:16)
--- NOTE | 2021-08-10 05:17 | EDPHYS ---
Physician Documentation [facility] Name: Johana Riley Age: 81 yrs Sex: Female : 1940 Arrival Date: 08/10/2021 Time: 04:13 Bed 5 Private MD: Rogelio Hernandez HPI: 08/10 04:17 This 81 yrs old Female presents to ER via Unassigned with complaints of Seizure. rn 04:17 The patient presents after having a single isolated seizure. The patient presents after rn having a single isolated seizure, that lasted 5 minute(s). Character of seizure(s): Loss of consciousness: it is not known if the patient experienced loss of consciousness, Motor activity: generalized, Incontinence: none, Circulation: the patient did not experience evidence of pulse disturbance. Seizure onset: just prior to arrival. Associated injury: The patient did not suffer any apparent associated injury. Current symptoms: confusion. The patient has not experienced similar symptoms in the past. The patient has been recently seen by a physician:. EMS reports has been noticed generalized shaking that lasted about 5 minutes, had a small cut to the tongue, no history of seizures, recent diagnosis of cancer but unknown to patient or EMS what kind. Denies recent trauma. Patient was postictal upon EMS arrival and no seizure activity noted by EMS, mental status has improved since then.. Historical: - Home Meds: 04:18 atenolol 50 mg Oral tab 1 tab 2 times per day [Active]; losartan 50 mg Oral tab 1 tab kd3 once daily [Active]; pantoprazole 40 mg Oral TbEC 1 tab once daily [Active]; triamterene-hydrochlorothiazid 37.5-25 mg Oral tab 1 tab once daily [Active]; - PMHx: 04:18 Hypertension; GERD; kd3 - PSHx: 04:18 hysterectomy; spine spacer surgery; kd3 - Immunization history:: Adult Immunizations unknown, Adult Immunizations up to date, Client reports receiving the 2nd dose of the Covid vaccine. - Social history:: Smoking status: Patient denies any tobacco usage or history of. - Family history:: not pertinent. - Hospitalizations: : No recent hospitalization is reported. - History obtained from: EMS. ROS: 04:20 Constitutional: Negative for fever, chills, and weight loss, Eyes: Negative for injury, rn pain, redness, and discharge, ENT: Negative for injury, pain, and discharge, Neck: Negative for injury, pain, and swelling, Cardiovascular: Negative for chest pain, palpitations, and edema, Respiratory: Negative for shortness of breath, cough, wheezing, and pleuritic chest pain, Abdomen/GI: Negative for abdominal pain, nausea, vomiting, diarrhea, and constipation, Back: Negative for injury and pain, : Negative for injury, bleeding, discharge, and swelling, MS/Extremity: Negative for injury and deformity, Skin: Negative for injury, rash, and discoloration, Neuro: Negative for headache, weakness, numbness, tingling Exam: 04:20 Constitutional: This is a well developed, well nourished patient who is awake, alert, rn and in no acute distress. Head/Face: Normocephalic, atraumatic. Eyes: Pupils equal round and reactive to light, extra-ocular motions intact. Periorbital areas with no swelling, redness, or edema. ENT: Small cut to distal tongue on right side, no active bleeding Neck: Trachea midline, no thyromegaly or masses palpated, and no cervical lymphadenopathy. Supple, full range of motion without nuchal rigidity, or vertebral point tenderness. No Meningismus. Cardiovascular: Regular rate and rhythm. No pulse deficits. Respiratory: No increased work of breathing, no retractions or nasal flaring. Abdomen/GI: Soft, non-tender Skin: Warm, dry MS/ Extremity: Pulses equal, no cyanosis. Neurovascular intact. Full, normal range of motion. Equal circumference. Neuro: Awake and alert, GCS 15, oriented to person, place, but not time. Cranial nerves II-XII grossly intact. Motor strength 5/5 in all extremities. Sensory grossly intact. Cerebellar exam normal. 05:12 ECG was reviewed by the Attending Physician. rn Vital Signs: 04:14 BP 133 / 69; Pulse 84; Resp 16; Pulse Ox 93% ; Weight 48.08 kg; Height 5 ft. (152.40 kd3 cm); 05:10 BP 129 / 61; Pulse 81; Resp 17 S; Pulse Ox 95% on R/A; as6 06:04 BP 125 / 50; Pulse 81; Resp 17; Pulse Ox 100% on R/A; kd3 07:00 BP 102 / 54; Pulse 80; Resp 18; Pulse Ox 96% on R/A; tw2 07:56 BP 100 / 70; Pulse 85; Resp 20; Pulse Ox 99% on R/A; ph 09:00 BP 94 / 49; Pulse 79; Resp 18; Pulse Ox 96% ; tw2 04:14 Body Mass Index 20.70 (48.08 kg, 152.40 cm) kd3 [place] Coma Score: 04:18 Eye Response: spontaneous(4). Verbal Response: oriented(5). Motor Response: obeys kd3 commands(6). Total: 15. MDM: 04:13 Patient medically screened. rn 05:12 Differential diagnosis: cardiac arrhythmia, seizure, metastasis. Data reviewed: vital rn signs, nurses notes, lab test result(s), EKG, radiologic studies, CT scan, and as a result, I will admit patient. Counseling: I had a detailed discussion with the patient and/or guardian regarding: the historical points, exam findings, and any diagnostic results supporting the discharge/admit diagnosis, lab results, radiology results, the need for further work-up and treatment in the hospital. Response to treatment: the patient's symptoms have markedly improved after treatment, and as a result, I will admit patient. Admission orders: after a detailed discussion of the patient's condition and case, the admit orders are written by me. ED course: Pt without gross findings on CT head, also reports MRI last week negative. Will admit for acute kidney failure and hypocalcemia. ECG also shows prolonged QT which could also be attributed to hypocalcemia. Ordered calcium IV and NS. Will admit. . 08/10 04:16 Order name: CBC with Diff; Complete Time: 05:00 rn 08/10 04:16 Order name: Basic Metabolic Panel; Complete Time: 05:35 rn 08/10 04:16 Order name: Protime (+inr); Complete Time: 05:00 rn 08/10 04:16 Order name: Ptt, Activated; Complete Time: 05:00 rn 08/10 04:17 Order name: SARS-COV-2 RT PCR (Document "Date of Onset" if Symptomatic); Complete Time: rn 05:35 08/10 04:17 Order name: Troponin High Sensitivity; Complete Time: 05:35 rn 08/10 05:10 Order name: Liver (Hepatic) Function; Complete Time: 05:35 EDMS 08/10 05:16 Order name: CPK la1 08/10 05:16 Order name: Uric Acid la1 08/10 05:19 Order name: Uric Acid; Complete Time: 05:35 EDMS 08/10 05:19 Order name: Creatine Phosphokinase; Complete Time: 05:35 EDMS 08/10 04:16 Order name: CT Head Brain wo Cont rn 08/10 04:16 Order name: IV Start; Complete Time: 04:33 rn 08/10 04:17 Order name: Glucose Level; Complete Time: 04:18 rn 08/10 04:17 Order name: EKG; Complete Time: 04:17 rn 08/10 04:17 Order name: EKG - Nurse/Tech; Complete Time: 04:34 rn 08/10 08:27 Order name: US EDMS EC:12 Rate is 84 beats/min. Rhythm is regular. QRS [place] is Normal. NV interval is normal. QRS rn interval is normal. QT interval is prolonged at 479 msec. No Q waves. T waves are Normal. No ST changes noted. Clinical impression: NSR, prolonged QT. Interpreted by me. Reviewed by me. Administered Medications: 04:38 Drug: Keppra (levETIRAcetam) 1000 mg Route: IV; Rate: calculated rate; Site: right as6 antecubital; 05:50 Follow up: Response: No adverse reaction; IV Status: Completed infusion; IV Intake: as6 100ml 05:48 Drug: NS 0.9% 500 ml Route: IV; Rate: bolus; Site: right antecubital; as6 06:58 Follow up: Response: No adverse reaction; IV Status: Completed infusion; IV Intake: as6 500ml 05:49 Drug: Calcium Gluconate 1 grams Route: IVPB; Infused Over: 60 mins; Site: right as6 antecubital; 06:58 Follow up: Response: No adverse reaction; IV Status: Completed infusion; IV Intake: as6 100ml 06:23 Drug: NS 0.9% 1000 ml Route: IV; Rate: 75 ml/hr; Site: right antecubital; as6 Point of Care Testing: Blood Glucose: 04:27 Blood Glucose: 89 mg/dL; kd3 Ranges: Critical Glucose Levels:Adult <50 mg/dl or >400 mg/dl <40 mg/dl or >180 mg/dl Disposition Summary: 08/10/21 08:01 Transfer Ordered Transfer Location: Other Acute Care Facility kai Reason: Higher level of care kai Condition: Fair(08/10/21 08:01) kai Problem: new(08/10/21 08:01) kai Symptoms: have improved(08/10/21 08:01) kai Accepting Physician: to dr suma herbert(08/10/21 10:03) tw2 Diagnosis - Epileptic seizures related to external causes, not intractable kai - Hypocalcemia(08/10/21 08:10) kai - Acute kidney failure, unspecified(08/10/21 08:10) kai Forms: - Medication Reconciliation Form kai - SBAR form kai Signatures: Dispatcher [employer] EDMS Rogelio Jackson MD MD cha Nieto, Roman, MD MD rn Candelario Hester, ANALYSIS REPORTING DEVELOPER-C ANALYSIS REPORTING DEVELOPER-Cla1 Fátima Nick, RN RN tw2 Sushil Cheema, RN RN as6 Aileen Armas, RN RN kd3 Corrections: (The following items were deleted from the chart) 05:09 05:07 HEPATIC FUNCTION+C.LAB.BRZ ordered. EDMS EDMS 05:19 05:17 Creatine Phosphokinase ordered. EDMS EDMS 05:19 05:17 Uric Acid ordered. EDMS EDMS 07:54 05:16 Inpatient Admission rn kai 07:54 05:16 Prince Denisse rn kai 07:54 05:16 Telemetry/MedSurg (Inpatient) rn kai 07:54 05:16 Stable rn kai 07:54 05:16 new rn kai 07:54 05:16 have improved rn kai 07:54 05:16 Standard rn kai 07:54 05:16 rn kai 07:54 05:16 Other seizures rn kai 07:54 05:16 Acute kidney failure, unspecified rn kai 07:54 05:16 Hypocalcemia nurys kai 08:10 08:[address] suma herbert cha kai 10:03 08:[address] suma herbert cha tw2
--- NOTE | 2021-08-10 05:17 | ER ---
Nurse's Notes [facility] Name: Johana Riley Age: 81 yrs Sex: Female : 1940 Arrival Date: 08/10/2021 Time: 04:13 Bed 5 Private MD: Diagnosis: Epileptic seizures related to external causes, not intractable;Hypocalcemia;Acute kidney failure, unspecified Presentation: 08/10 04:14 Chief complaint: EMS states: PT'S WAS WOKEN UP BY THE PT SHAKING. kd3 THINKS THE SHAKING LASTED ABOUT 5 MINUTES. PT WAS RECENTLY DIAGNOSED WITH CANCER. TX TO START SATURDAY. NO PRIOR HISTORY OF SEIZURES. Coronavirus screen:. Ebola Screen: No symptoms or risks identified at this time. Initial Sepsis Screen: Does the patient meet any 2 criteria? No. Patient's initial sepsis screen is negative. Does the patient have a suspected source of infection? No. Patient's initial sepsis screen is negative. Risk Assessment: Do you want to hurt yourself or someone else? Patient reports no desire to harm self or others. Onset of symptoms was August 10, 2021. 04:14 Method Of Arrival: EMS: [facility] kd3 04:14 Acuity: CHAITANYA 3 kd3 Triage Assessment: 04:18 General: Appears in no apparent distress. Behavior is calm, cooperative, appropriate kd3 for age. Pain: Denies pain. Neuro: Level of Consciousness is awake, alert, obeys commands, Oriented to person, place. Historical: - Home Meds: 04:18 atenolol 50 mg Oral tab 1 tab 2 times per day [Active]; losartan 50 mg Oral tab 1 tab kd3 once daily [Active]; pantoprazole 40 mg Oral TbEC 1 tab once daily [Active]; triamterene-hydrochlorothiazid 37.5-25 mg Oral tab 1 tab once daily [Active]; - PMHx: 04:18 Hypertension; GERD; kd3 - PSHx: 04:18 hysterectomy; spine spacer surgery; kd3 - Immunization history:: Adult Immunizations unknown, Adult Immunizations up to date, Client reports receiving the 2nd dose of the Covid vaccine. - Social history:: Smoking status: Patient denies any tobacco usage or history of. - Family history:: not pertinent. - Hospitalizations: : No recent hospitalization is reported. - History obtained from: EMS. Screenin:19 Abuse screen: Denies threats or abuse. Denies injuries from another. Nutritional kd3 screening: No deficits noted. Tuberculosis screening: No symptoms or risk factors identified. 04:21 Fall Risk IV access (20 points). kd3 Assessment: 04:30 General: Appears in no apparent distress. Behavior is calm, cooperative, flat, quiet. as6 Pain: Denies pain. Neuro: Level of Consciousness is awake, obeys commands, post ictal, Oriented to person, place, time. EENT: bite on tongue . 05:11 Reassessment: Patient appears in no apparent distress at this time. as6 07:00 Reassessment: Patient appears in no apparent distress at this time. Patient and/or tw2 family updated on plan of care and expected duration. Pain level reassessed. Patient is alert, oriented x 3, equal unlabored respirations, skin warm/dry/pink. 08:00 Reassessment: Patient appears in no apparent distress at this time. Patient and/or tw2 family updated on plan of care and expected duration. Pain level reassessed. Patient is alert, oriented x 3, equal unlabored respirations, skin warm/dry/pink. 09:00 Reassessment: Patient appears in no apparent distress at this time. Patient and/or tw2 family updated on plan of care and expected duration. Pain level reassessed. Patient is alert, oriented x 3, equal unlabored respirations, skin warm/dry/pink. 09:56 Reassessment: Patient appears in no apparent distress at this time. Patient and/or tw2 family updated on plan of care and expected duration. Pain level reassessed. Patient is alert, oriented x 3, equal unlabored respirations, skin warm/dry/pink. Vital Signs: 04:14 BP 133 / 69; Pulse 84; Resp 16; Pulse Ox 93% ; Weight 48.08 kg; Height 5 ft. (152.40 kd3 cm); 05:10 BP 129 / 61; Pulse 81; Resp 17 S; Pulse Ox 95% on R/A; as6 06:04 BP 125 / 50; Pulse 81; Resp 17; Pulse Ox 100% on R/A; kd3 07:00 BP 102 / 54; Pulse 80; Resp 18; Pulse Ox 96% on R/A; tw2 07:56 BP 100 / 70; Pulse 85; Resp 20; Pulse Ox 99% on R/A; ph 09:00 BP 94 / 49; Pulse 79; Resp 18; Pulse Ox 96% ; tw2 04:14 Body Mass Index 20.70 (48.08 kg, 152.40 cm) kd3 Radha Coma Score: 04:18 Eye Response: spontaneous(4). Verbal Response: oriented(5). Motor Response: obeys kd3 commands(6). Total: 15. ED Course: 04:13 Patient arrived in ED. rn 04:13 Chadwick Lutz MD is Attending Physician. rn 04:14 Aileen Armas RN is Primary Nurse. kd3 04:18 Triage completed. kd3 04:18 Arm band placed on right wrist. kd3 04:19 Patient has correct armband on for positive identification. Bed in low position. Side kd3 rails up X 1. 04:21 Seizure precautions initiated. kd3 04:25 Inserted saline lock: 20 gauge in right antecubital area, using aseptic technique. as6 Blood collected. 05:09 CT Head Brain wo Cont In Process Unspecified. EDMS 05:15 Bhanu Lutz MD is Hospitalizing Provider. rn 05:15 Prince Salcedo MD is Hospitalizing Provider. rn 05:49 Assisted to bedside commode. as6 07:58 Attending Physician role handed off by Chadwick Lutz MD kai 07:58 Rogelio Jackson MD is Attending Physician. [facility] 08:00 initiated transfer to [facility] per pts request. pt accepted in transfer by Dr Reveles bd admin approval also given by Dr Reveles. 08:54 Report given to STACEY Hall at [place]. tw2 Administered Medications: 04:38 Drug: Keppra (levETIRAcetam) 1000 mg Route: IV; Rate: calculated rate; Site: right as6 antecubital; 05:50 Follow up: Response: No adverse reaction; IV Status: Completed infusion; IV Intake: as6 100ml 05:48 Drug: NS 0.9% 500 ml Route: IV; Rate: bolus; Site: right antecubital; as6 06:58 Follow up: Response: No adverse reaction; IV Status: Completed infusion; IV Intake: as6 500ml 05:49 Drug: Calcium Gluconate 1 grams Route: IVPB; Infused Over: 60 mins; Site: right as6 antecubital; 06:58 Follow up: Response: No adverse reaction; IV Status: Completed infusion; IV Intake: as6 100ml 06:23 Drug: NS 0.9% 1000 ml Route: IV; Rate: 75 ml/hr; Site: right antecubital; as6 Point of Care Testing: Blood Glucose: 04:27 Blood Glucose: 89 mg/dL; kd3 Ranges: Intake: 05:50 IV: 100ml; Total: 100ml. as6 06:58 IV: 100ml; Total: 200ml. as6 06:58 IV: 500ml; Total: 700ml. as6 Outcome: 05:16 Decision to Hospitalize by Provider. rn 08:01 ER care complete, transfer ordered by . kai 10:03 Patient left the ED. tw2 Signatures: Dispatcher [employer] EDMS Aracely Murphy Corey, MD MD cha Nieto, Roman, MD MD rn Hall, Patricia, RN RN Fátima Nick RN RN tw2 Sushil Cheema RN RN as6 Aileen Armas RN RN kd3
[2021-08-10] MEDS ORDERED: NA CHLORIDE 0.9% 500 ML ONE (05:18)
[2021-08-10 05:32] LABS: Bilirubin Direct 0.2 mg/dL (0-0.2); Bilirubin Total 0.4 mg/dL (0.2-1.0); Protein, Total 6.3 g/dL (6.4-8.2); Uric Acid 8.2 mg/dL (2.6-6.0)
--- NOTE | 2021-08-10 05:35 | P.HP ---
Certification for Inpatient Patient admitted to: Inpatient With expected LOS: >2 Midnights Patient will require the following post-hospital care: None Practitioner: I am a practitioner with admitting privileges, knowledge of patient current condition, hospital course, and medical plan of care. Services: Services provided to patient in accordance with Admission requirements found in Title 42 Section 412.3 of the Code of Federal Regulations <Candelario Hester - Last Filed: 08/10/21 05:30> Patient History Date of Service: 08/10/21 Reason for admission: ARF, seizure, hypocalcemia History of Present Illness: 81-year-old female with history of hypertension, GERD and cervical cancer with mets presents the emergency department for new onset seizure. Patient was resting in bed with her when he noted that she was shaking reports approximately 5-minute long seizure-like activity at home, patient did bite tongue was noted to be postictal by EMS with improved mental status upon arrival to the emergency department. Patient was evaluated in the emergency department found to be in acute renal failure also with hypocalcemia. Patient is on daily radiation for cervical cancer. Patient was given Keppra, IV calcium in the emergency department as well as fluids, ED provider wishes to admit for further evaluation and management of acute renal failure, new onset seizures and hypocalcemia - Past Medical/Surgical History Diabetic: No -: HTN -: Gastroesophageal reflux disease -: Uterine cancer -: Cataracts -: Right ear surgery -: Hysterectomy -: Lumbar Spinal Spacer Surgery-Apr 2020 Psychosocial/ Personal History: Patient lives at home with her - Family History Family History: Reviewed- Non-Contributory - Social History Smoking Status: Never smoker Alcohol use: Yes CD- Drugs: No Caffeine use: Yes Place of Residence: Home <Candelario Hester - Last Filed: 08/10/21 05:30> Date of Service: 08/10/21 <Bhanu Lutz - Last Filed: 08/10/21 11:38> Allergies strawberry Allergy (Verified 06/28/21 16:55) Hives Home Medications: Pantoprazole [Protonix Tab*] 40 mg PO DAILY 08/04/18 atenoloL [Tenormin*] 50 mg PO BID 08/04/18 Losartan Potassium [Cozaar] 50 mg PO DAILY 06/24/21 Review of Systems 10-point ROS is otherwise unremarkable General: Malaise Neurological: Seizures, As per HPI <Candelario Hester - Last Filed: 08/10/21 05:30> Physical Examination - Physical Exam General: Alert, In no apparent distress, Oriented x3 HEENT: Atraumatic, PERRLA, Mucous membr. moist/pink, EOMI, Sclerae nonicteric Neck: Supple, 2+ carotid pulse no bruit, No LAD, Without JVD or thyroid abnormality Respiratory: Clear to auscultation bilaterally, Normal air movement Cardiovascular: Regular rate/rhythm, Normal S1 S2 Gastrointestinal: Normal bowel sounds, No tenderness Musculoskeletal: No tenderness Integumentary: No rashes Neurological: Normal speech, Normal strength at 5/5 x4 extr, Normal tone, Normal affect - Studies Laboratory Data (last 24 hrs) 08/10/21 05:16: Uric Acid Cancelled 08/10/21 05:06: Total Bilirubin Cancelled, AST Cancelled, ALT Cancelled, Alkaline Phosphatase Cancelled 08/10/21 04:26: PT 12.3, INR 1.07, APTT 29.2 08/10/21 04:26: Sodium 134 L, Potassium 4.2, BUN 40 H, Creatinine 2.22 H, Glucose 93 08/10/21 04:26: WBC 3.90 L, Hgb 11.4 L, Hct 33.8 L, Plt Count 156 <Candelario Hester - Last Filed: 08/10/21 05:30> - Studies Laboratory Data (last 24 hrs) 08/10/21 05:16: Uric Acid Cancelled 08/10/21 05:06: Total Bilirubin Cancelled, AST Cancelled, ALT Cancelled, Alkaline Phosphatase Cancelled 08/10/21 04:26: PT 12.3, INR 1.07, APTT 29.2 08/10/21 04:26: Sodium 134 L, Potassium 4.2, BUN 40 H, Creatinine 2.22 H, Glucose 93, Uric Acid 8.2 H, Total Bilirubin 0.4, AST 40 H, ALT 33, Alkaline Phosphatase 68 08/10/21 04:26: WBC 3.90 L, Hgb 11.4 L, Hct 33.8 L, Plt Count 156 <Bhanu Lutz - Last Filed: 08/10/21 11:38> Assessment and Plan - Plan Assessment: Acute renal failure Hypocalcemia New onset seizure Hypertension GERD Uterine cancer Plan: Acute renal failure: Nephrology consulted, continue gentle hydration renal ultrasound ordered. Repeat labs. Appreciate further input from nephrology. Patient does admit to taking NSAIDs periodically throughout the week in addition to taking losartan and hydrochlorothiazide at home. No recent antibiotics or IV contrast that is known. Most recent labs from June with normal renal function. Hypocalcemia: Albumin level pending for corrected calcium level. Patient was given IV calcium in the emergency department PTH ordered. Nephrology also on board. New onset seizure: Possibly related to hypocalcemia, CT head brain without contrast negative for acute findings. Neurology consulted patient started on Keppra. Hypertension: Obtain home medications continue as appropriate we will need to hold hydrochlorothiazide/losartan at this time given acute renal failure GERD: Daily Protonix p.o. Uterine cancer: Patient currently is receiving daily radiation treatment, will need to hold off on this during hospitalization. Can continue after discharge. DVT PPX: Heparin Code status: full Discharge Plan: Home Plan to discharge in: 48 Hours - Advance Directives Does patient have a Living Will: No Does patient have a Durable POA for Healthcare: No - Code Status/Comfort Care Code Status Assessed: Yes (Full code) Critical Care: No Time Spent Managing Pts Care (In Minutes): 55 <Candelario Hester - Last Filed: 08/10/21 05:30> - Plan Patient seen and examined early this morning. Discussed new seizure, h/o uterine cancer and undergoing radiation, LINK. Patient and family requested transfer to [facility] for continuity of care. Discussed patient likely may be able to be discharged as early as tomorrow pending further workup. They still requested transfer. Transfer initiated in ED. Patient was accepted an d subsequently transferred to [facility]. <Bhanu Lutz - Last Filed: 08/10/21 11:38>
[2021-08-10] MEDS ORDERED: NA CHLORIDE 0.9% 1,000 ML ONE (06:24)
--- NOTE | 2021-08-10 08:26 | RAD REPORT ---
EXAM DESCRIPTION: US - Renal Ultrasound-Complete - 08/10/2021 7:04 am CLINICAL HISTORY: arf Flank pain, renal failure. COMPARISON: Abdomen Exam Complete dated 12/03/2017 FINDINGS: Both kidneys are normal in size, shape and echotexture. The right kidney measures 9.6 x 4.1 x 4.1 cm. No hydronephrosis, focal mass or perinephric fluid. The left kidney measures 8.2 x 4.0 x 3.8 cm. No hydronephrosis, focal mass or perinephric fluid. The urinary bladder is incompletely distended without gross abnormality seen. IMPRESSION: Unremarkable renal sonogram.
[2021-08-10 10:31] VITALS: BP 94/49; O2SAT 96
--- NOTE | 2021-08-10 12:42 | RAD REPORT ---
EXAM DESCRIPTION: CT Head/Brain Without Contrast CLINICAL HISTORY: New seizure COMPARISON: CT Head/Brain Without Contrast 09/30/2018 TECHNIQUE: Head/brain axial images acquired without contrast. Coronal and sagittal reformats created . Exam performed according to departmental dose-optimization program which includes automated exposur e control, adjustment of mA and/or kV according to patient size, and/or use of iterative reconstructi on technique. FINDINGS: No midline shift, mass effect, intracranial hemorrhage, or hydrocephalus. Partial Empty Sella (likely normal variant). CSF spaces appear overall mildly enlarged likely representing age-appropriate cerebral volume loss. Mild opacification or small mucous retention cyst/polyp at left posterior ethmoid sinus. No skull fracture or significant skull lesion. Calcified atherosclerotic intracranial internal carotid arteries. Both lenses show postsurgical changes. IMPRESSION: No CT evidence of acute intracranial abnormality. Electronically signed by: Eduardo Tucker MD 08/10/2021 5:50 AM [employer] SAL[employer] Due to temporary technical issues with the PACS/Fluency reporting system, reports are being signed by the in house radiologists without review as a courtesy to insure prompt reporting. The interpreting radiologist is fully responsible for the content of the report.
== END 2021-08-10 10:05 | disposition left against medical advice (07) | DRG 101 ==
LOC: ER 04:12 → ERHOLD 05:32
PROVIDERS: ADMIT Hospitalist; ATTEND Hospitalist
DX: R56.9 Unspecified convulsions (principal); N17.9 Acute kidney failure, unspecified; E83.51 Hypocalcemia; I10 Essential (primary) hypertension; K21.9 Gastro-esophageal reflux disease without esophagitis; C53.9 Malignant neoplasm of cervix uteri, unspecified; Z20.822 Contact with and (suspected) exposure to COVID-19
CPT/HCPCS: 36415; 70450; 76770; 80048; 80076; 82550; 84484; 84550; 85025; 85610; 85730; 93005; 96365; 99284; J0610; J1953; J7030; J7040; U0003